=== PATIENT | female | born 1945 | race Caucasian/White ===

== ENCOUNTER 2019-07-25 11:12 | Inpatient (IN) | payer MEDICARE, SELFPAY ==
[2019-07-25] VITALS (10 sets, daily range): BP systolic 122–139; BP diastolic 72–93; PULSE 84–107; RESP 14–20; TEMP 36.4–37; O2SAT 90–94; BMI 18.6
--- NOTE | 2019-07-25 11:26 | XR_ITS ---
WS: [id number] XR hip LT 2-3V wo/w pel* [id number] REASON FOR EXAM: injury FINDINGS: There is an impacted basocervical fracture of the left hip. Slight valgus deformity is seen . The pelvis otherwise normal. XR/XR hip LT 2-3V wo/w pel* [id number] IMPRESSION: Basocervical fracture of the left hip
--- NOTE | 2019-07-25 11:30 | XR_ITS ---
WS: [id number] XR KUB portable [id number] REASON FOR EXAM: stomach problems FINDINGS: Aneurysmal changes of the mid aorta is seen. There is marked fecal stasis throughout the colon. There is a basocervical fracture of the left hip age undetermined. There is no definite obstructive changes noted. The suspected aorta measured 5.71 cm. XR/XR KUB portable [id number] IMPRESSION: Suspected abdominal aortic aneurysm There is basal cervical fracture of the left hip There is fecal stasis seen.
--- NOTE | 2019-07-25 11:30 | W.ED.FALL ---
HPI - Fall General: Chief Complaint: Fall Stated Complaint: GROUND LEVEL FALL, LT HIP PAIN Time Seen by Provider: 07/25/19 11:23 History of Present Illness: HPI Narrative: Patient arrived via ambulance with complaint of left hip pain after falling from a standing position. Patient denies any dizziness. Patient has had upset stomach last 2 days and decreased appetite. Has been using Pepto-Bismol. After using Pepto-Bismol she notes her stools were dark. complaint: fall Onset (ago): minute(s) Fall from: standing Fall witnessed: yes, by family Place fall occurred: home Loss of consciousness: None Symptoms prior to fall: none Context: tripped/slipped Location of injury: other (Left hip) Severity: moderate Severity scale (1-10): 5 Quality: dull and aching Associated symptoms-after fall: Reports no associated symptoms; Denies abdominal pain, chest pain or headache(s) Review of Systems Const: Denies: fever(s), chills or body aches Eyes: Denies: change in vision or blurry vision ENMT: Denies: throat pain or nasal congestion Card: Denies: chest pain or dyspnea on exertion Resp: Denies: dyspnea, productive cough or non-productive cough GI: Reports: other (Decreased appetite); Denies: abdominal pain, nausea or vomiting Musc: Reports: extremity pain (Left hip) Skin/Breast: Denies: rash Neuro: Denies: headache(s) Psych: Denies: anxiety or depression Perez/Lymph: Denies: easy bruising PFSH ED PFSH: Social History Smoking and tobacco status: current every day smoker Physical Exam Const: COMMON NORMALS: no acute distress, average body habitus and patient oriented x3 HENMT: COMMON NORMALS: normocephalic HEAD & SCALP: normal to inspection and normocephalic FACE & SINUS: normal facial exam Eye: COMMON NORMALS: conjunctivae normal GENERAL EYE: appearance normal, both eyes and all related structures CONJUNCTIVA: Yes conjunctivae normal Neck/C-Spine: COMMON NORMALS: no JVD Chest: COMMONS NORMALS: normal inspection of the chest Resp: COMMON NORMALS: normal respiratory effort and clear to auscultation bilaterally AUSCULTATION: clear to auscultation bilaterally Cardio: COMMON NORMALS: no JVD, regular rate and regular rhythm RATE: regular rate RHYTHM: regular rhythm GI: COMMON NORMALS: Normal to inspection, nondistended, normoactive bowel sounds present Extremity: NARRATIVE EXTREMITY EXAM: Left leg is outwardly rotated appears a little bit short has pain with palpation to the left medial aspect of the hip Neuro: COMMON NORMALS: patient oriented x3 Course Vital Signs: Vital signs: Vital Signs Temperature 98.1 F 07/25/19 11:21 Pulse Rate 107 H 07/25/19 11:21 Respiratory Rate 18 07/25/19 11:47 Blood Pressure 124/74 07/25/19 11:21 Pulse Oximetry 90 07/25/19 11:21 MDM - Fall MDM Narrative: Medical decision making narrative: Discussed patient with Dr. Davies Lab Data: Labs: Lab Results 07/25/19 07/25/19 Range/Units 11:44 11:44 WBC 16.2 H (4.0-10.0) 10^3/ uL RBC 4.29 (4.1-5.3) 10^6/u L Hgb 12.5 (11.5-15.3) g/dL Hct 36.9 L (37.0-47.0) % MCV 86.0 (81-99) fL MCH 29.1 (28.0-34.0) pg MCHC 33.9 (30.0-36.0) g/dL RDW 12.6 (12.1-15.1) % Plt Count 336 (130-400) 10^3/c mm MPV 9.6 (7.4-10.4) fL Neut % (Auto) 88.7 % Lymph % (Auto) 3.1 % Jasper % (Auto) 7.3 % Eos % (Auto) 0.1 % Baso % (Auto) 0.1 % Neut # (Auto) 14.3 H (1.8-7.7) 10^3/u L Lymph # (Auto) 0.5 L (0.8-4.8) 10^3/u L Jasper # (Auto) 1.2 H (0.2-0.9) 10^3/u L Eos # (Auto) 0.0 (0.0-0.8) 10^3/u L Baso # (Auto) 0.0 (0.0-0.1) 10^3/u L Nucleated RBC % (a uto) 0 % Nucleated RBCs # 0.0 /100WBC Sodium 124 L (136-145) mmol/L Potassium 4.0 (3.5-5.1) mmol/L Chloride 86 L (98-107) mmol/L Carbon Dioxide 23 (22-29) mmol/L Anion Gap 19.0 (5-19) BUN 16 (8-23) mg/dL Creatinine 0.4 L (0.5-0.9) mg/dL Glucose 136 H (65-115) mg/dL Calculated Osmolal ity 256 L (285-295) mOsm/k g Calcium 9.3 (8.5-10.5) mg/dL Total Bilirubin 0.3 (0.15-1.2) mg/dL AST 21 (0-32) U/L ALT 13 (0-33) U/L Alkaline Phosphata se 88 (35-105) IU/L Total Protein 6.7 (6.6-8.7) g/dL Albumin 3.7 (3.5-5.2) g/dL Globulin 3.0 (1.3-4.6) g/dL Discharge Plan Discharge Prescriptions: No Action lorazepam 0.5 mg tablet 0.5 mg PO BID PRN (Reason: anxiety) 30 Days Qty: 60 RF: 5 citalopram 20 mg Tablet 20 mg PO DAILY RF: 0 Coding Level of Care Code ED American Sign Language Teacher for Chg Fwd Exam Comprehensive
[2019-07-25] MEDS: ondansetron 2 mg/ML SDV 2 mL 4 MG IVP (11:45)
[2019-07-25] MEDS: morphine 4 mg/mL SDV 1 mL IVP (11:47)
[2019-07-25 11:56] LABS: Basophils % 0.1 %; Eosinophils % 0.1 %; Hematocrit 36.9 % (37.0-47.0); Hemoglobin 12.5 g/dL (11.5-15.3); Lymphocytes # 0.5 10^3/uL (0.8-4.8); Lymphocytes % 3.1 %; Mean Corpuscular HGB Conc 33.9 g/dL (30.0-36.0); Mean Corpuscular Hemoglobin 29.1 pg (28.0-34.0); Mean Platelet Volume 9.6 fL (7.4-10.4); Monocytes # 1.2 10^3/uL (0.2-0.9); Monocytes % 7.3 %; Neutrophils # 14.3 10^3/uL (1.8-7.7); Neutrophils % 88.7 %; Nucleated Red Blood Cells % 0 %; Platelet Count 336 10^3/cmm (130-400); Red Blood Count 4.29 10^6/uL (4.1-5.3); Red Cell Distribution Width 12.6 % (12.1-15.1); White Blood Count 16.2 10^3/uL (4.0-10.0)
[2019-07-25 12:09] LABS: Alanine Aminotransferase 13 U/L (0-33); Albumin Level 3.7 g/dL (3.5-5.2); Alkaline Phosphatase 88 IU/L (35-105); Aspartate Amino Transferase 21 U/L (0-32); Blood Urea Nitrogen 16 mg/dL (8-23); Calcium 9.3 mg/dL (8.5-10.5); Carbon Dioxide 23 mmol/L (22-29); Chloride 86 mmol/L (98-107); Glucose 136 mg/dL (65-115); Osmolality Calculated 256 mOsm/kg (285-295); Sodium 124 mmol/L (136-145); Total Bilirubin 0.3 mg/dL (0.15-1.2); Total Protein 6.7 g/dL (6.6-8.7)
--- NOTE | 2019-07-25 12:15 | ECG_ITS ---
[facility] ED Test Date: 2019-07-25 Pat Name: Alexander Mckenzie Department: Room: 268 Gender: Female Therapy Aide: : 1945 Requested By: Asif Rodrigez Order Number: [id number] Rolando MD: Roxana Franco M.D. Measurements Intervals [place] Rate: 96 P: 85 CT: 141 QRS: 74 QRSD: 85 T: 68 QT: 359 QTc: 454 Interpretive Statements SINUS RHYTHM WITH OCCASIONAL SUPRAVENTRICULAR PREMATURE COMPLEXES POSSIBLE RIGHT VENTRICULAR CONDUCTION DELAY [RSR (QR) IN V1/V2] MINIMAL ST DEPRESSION [0.025+ mV ST DEPRESSION] No previous ECG available for comparison Electronically Signed On 07-25-2019 19:20:59 CDT by Roxana Franco M.D. [id number]
--- NOTE | 2019-07-25 12:15 | XR_ITS ---
WS: [id number] XR chest 1V portable [id number] REASON FOR EXAM: fractured hip FINDINGS: Left pleural effusion is noted. There appears to be decreased volume of the left lung as co mpared to earlier exam of July 09, 2010. There is arteriosclerotic changes seen in the arch the aorta. The right lung suggest chronic obstructive pulmonary disease and is hyper aerated. 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 XR/XR chest 1V portable [id number] IMPRESSION: Atelectasis of the left lung with left pleural effusion Hyper aerated right lung.
[2019-07-25 12:31] LABS: INR 0.96 (0.8-1.2)
[2019-07-25] MEDS: sodium chloride 0.9% 1,000 ML 999 ML IV (12:43)
--- NOTE | 2019-07-25 12:44 | CT_ITS ---
WS: [id number] CT abdomen pelvis w con* [id number] REASON FOR EXAM: abd pain IV CONTRAST ADMINISTERED: Isovue 300, 95 mL TOTAL EXAM DLP: 468.[address] scans at [facility] use at least one of these dose optimization techniques: automat ed exposure control; mA and/or kV adjustment per patient size (includes targeted exams where dose is matched to clinical indication); or iterative reconstruction. FINDINGS: Elevated stomach into the left thoracic cavity with fluid in the stomach and debris. On the chest film this appears to be decreased volume of the left lung. Atelectasis is suspected in the lef t lung base. The liver was normal. The gallbladder showed no stones. The aorta shows heavy arteriosclerotic changes. A prominent aneurysm is seen of the aorta no definite dissection is seen at this time. There is heavy fecal stasis throughout the colon. The pancreas was normal. The kidneys show small cysts. A prominent cyst is seen on the right is 3.57 cm. The ureters appear to be normal. There is diverticulosis throughout the lower sigmoid and descending colon. There is a Bynum catheter in the evidence of the bladder. There is a basocervical fracture of the left hip. The aneurysm extends down the aorta 5 cm. And is in frarenal. CT/CT abdomen pelvis w con* [id number] IMPRESSION: Abdominal aortic aneurysm with no definite dissection seen measures 4.67 cm and extends 5 cm down the aorta. Fecal stasis throughout the colon Prominent left renal cyst Diverticulosis of the lower sigmoid descending colon The basal cervical fracture of left hip
--- NOTE | 2019-07-25 13:06 | P.HP_ITS ---
Providers/Chief Complaint Admitting Physician: Sirisha Vargas MD Primary Care Provider: Florentin Amaro MD Chief Complaint: GROUND LEVEL FALL, LT HIP PAIN History of Present Illness Alexander Mckenzie is a 74 year old female with PMHx of Chronic smoking, Anxiety/depression, COPD, presents from home by ambulance for evaluation of left hip pain following a fall earlier this morning while she was in her living room attempting to turn off the ceiling fan. When she reached up to the switch she stumbled backwards and ended up landing on her left hip. She was able to scoot on her bottom to the edge of the couch then braced herself up to a sitting position but was unable to weight-bear on her left lower extremity. She had significant pain in the left hip following the fall. Her is present at the bedside in the ER during my assessment. Her left lower extremity appears shortened, externally rotated and abducted. He received 2 mg of morphine in route to the hospital and has received an additional 4 mg of morphine for pain control. She seems relatively comfortable during my assessment and is able to provide her own history. She has not been admitted at our facility previously so no collateral information from review of medical record. Imaging so far shows a left hip fracture. Labs indicate leukocytosis with a white count of 16.2, normal hemoglobin at 12.5, normal renal function, hyponatremia with a sodium of 124, low chloride at 86, blood sugar of 136, normal LFTs, INR of 0.96. Chest x-ray shows hyperinflation, left pleural effusion and emphysema. KUB was done showing constipation and suspected AAA for which she is going to get a CT of the abdomen and pelvis. She relates that over the past several days her appetite has been very poor and she has mostly been drinking boost. She had had some nausea, vomiting and diarrhea about 4 days ago for which she was taking Pepto-Bismol. Shortly thereafter her symptoms resolved but she noticed dark stool. Last bowel movement was yesterday. She denies any changes in her urination, fever/chills, cough, shortness of breath, chest pain, lightheadedness or dizziness, previous falls. Had been ambulating independently without difficulty. She is not oxygen dependent at baseline. She only takes citalopram and Ativan as needed in terms of her home medications. She is pending Bynum catheter placement and is yet to receive her first bolus of IV fluid. She has been admitted for surgical management of her left hip fracture. Dr. Ventura has been contacted by the ER physician. CODE STATUS discussed with patient and at bedside, full code. Review of Systems Const: Reports: change in appetite (decreased appetite), change in weight (weight loss) and fatigue; Denies: fever(s) or chills Eyes: Denies: change in vision ENMT: Reports: dry mouth; Denies: odynophagia Card: Denies: chest pain, edema, swelling of feet/ankles, lightheadedness, syncope, pre-syncope, dyspnea on exertion or orthopnea Resp: Denies: dyspnea, productive cough or non-productive cough GI: Reports: abdominal pain, nausea and other (-dark colored stool); Denies: vomiting, hematemesis, diarrhea, bloating, GI cramping or hematochezia : Denies: difficulty voiding, dysuria or urinary frequency Musc: Reports: joint pain (left hip pain); Denies: back pain Skin/Breast: Denies: rash Neuro: Denies: numbness in extremities, weakness in extremities or confusion Psych: Denies: anxiety Medications/Allergies Home Medications Medication Instructions Recorded Confirmed Last Taken Type lorazepam 0.5 mg tablet 0.5 mg PO BID PRN 30 Days #60 tab 04/27/19 07/25/19 07/25/19 Rx citalopram 20 mg PO DAILY 07/25/19 07/25/19 07/25/19 History Allergies Allergy/AdvReac Type Severity Reaction Status Date / Time acetaminophen [From Vicodin] Allergy swelling Verified 07/25/19 11:25 hydrocodone [From Vicodin] Allergy swelling Verified 07/25/19 11:25 ibuprofen Allergy swelling Verified 07/25/19 11:25 PFSH Acute PFSH: Medical History Anxiety COPD (chronic obstructive pulmonary disease) Depression Smoker Surgical History History of bladder suspension procedure History of hysterectomy -secondary to pre-malignant lesions Family History (Updated 07/25/19 @ 13:16 by Sirisha Vargas MD) Father Congestive heart failure Mother Dementia Sister Brain aneurysm ruptured Social History (Updated 07/25/19 @ 13:17 by Sirisha Vargas MD) Smoking and tobacco status: current every day smoker cigarettes Packs smoked per day: 0.5 Alcohol intake: current Alcohol intake frequency: holidays/special occasions only Alcohol type: beer Substance/Drug Use: never Household members: significant other Housing: House Marital status: Current occupational status: retired Vitals/I&O/Wt Last Vital Signs Temp 98.1 F 07/25/19 11:21 Pulse 107 H 07/25/19 11:21 Resp 18 07/25/19 11:47 BP 124/74 07/25/19 11:21 Pulse Ox 90 07/25/19 11:21 Weight last 48 hrs Weight 52.163 kg Physical Exam Const: COMMON NORMALS: no acute distress, patient oriented x3 and alert GENERAL APPEARANCE: cooperative, comfortable, frail appearing and appears older than stated age NUTRITIONAL APPEARANCE: thin ORIENTATION/CONSCIOUSNESS: Yes awake HENMT: COMMON NORMALS: normocephalic, atraumatic and hearing grossly normal bilaterally HEAD & SCALP: normocephalic and atraumatic MOUTH: moist mucous membranes abnormal Details: parched Eye: COMMON NORMALS: Equal, round and reactive pupils present, EOMs intact bilaterally and conjunctivae normal CONJUNCTIVA: Yes conjunctivae normal PUPIL: Yes Equal, round and reactive pupils present Neck/C-Spine: COMMON NORMALS: full ROM GENERAL: Yes normal visual inspection and Yes trachea midline Chest: CHEST: Yes Symmetrical chest wall rise Resp: COMMON NORMALS: normal respiratory effort, No retractions, No use of accessory muscles and clear to auscultation bilaterally EFFORT & INSPECTION: Yes able to speak in complete sentences, Yes symmetric chest movement and No tachypneic AUSCULTATION: clear to auscultation bilaterally OTHER: -on 2 L NC Cardio: COMMON NORMALS: regular rate, regular rhythm, S1 normal heart sound present, S2 normal heart sound present and No murmurs present (Cardio) RATE: tachycardic RHYTHM: regular rhythm HEART SOUNDS: S1 normal heart sound present and S2 normal heart sound present GI: COMMON NORMALS: Normal to inspection, nondistended, normoactive bowel sounds present, Soft to palpation and non-tender PALPATION: Yes Soft to palpation Extremity: COMMON NORMALS: no clubbing, cyanosis or edema and no pedal edema NARRATIVE EXTREMITY EXAM: -LLE: externally rotated, abducted, shortened; tender ness to palpation at hip joint Neuro: COMMON NORMALS: patient oriented x3, moves all extremities, no focal motor deficits and no sensory deficits noted Psych: COMMON NORMALS: mental status grossly normal, Normal thought process present, cooperative, normal affect and speech normal SPEECH: Yes normal speech THOUGHT PROCESS: Normal thought process present Skin: COMMON NORMALS: no rashes or lesions noted, no jaundice, no petechiae and no mottling GENERAL SKIN EXAM: no rashes or lesions noted Data : 07/25/19 11:44 07/25/19 11:44 A&P Assessment and plan (1) Hip fracture, left: -secondary to mechanical fall at home earlier this AM -imaging reviewed -has received 4 mg dose of IV morphine; continue pain control as needed -fall precautions, strict bed rest -placement of Bynum catheter, assess daily for removal, monitor Is & Os -Ortho consult by Dr. Ventura -noted leukocytosis, low clinical suspicion for infection, pending UA, CXR with noted hyperinflation, atelectasis, L pleural effusion -monitor vital signs -IVF hydration -NPO after midnight -supplemental oxygen as needed, monitor respiratory status -noted suspicion for AAA on abdominal imaging, pending CT -coags wnl, not on any AC or antiplatelet therapy -lake-op abx -PT/OT evaluations post-op Status: Acute Qualifiers: Encounter type: initial encounter Fracture type: closed Qualified Code(s): S72.002A - Fracture of unspecified part of neck of left femur, initial encounter for closed fracture (2) Hyponatremia: -poor oral intake recently so likely due to dehydration -bolus of 1 L NS to be given in ED; IVF maintanance thereafter -close monitoring of Na levels to avoid over-correction, corrected Na is 125 -check TSH Status: Acute (3) Protein calorie malnutrition: -BMI-19 kg/m2 -poor appetite; add Ensure to meals Status: Chronic Qualifiers: Protein-calorie malnutrition severity: moderate Qualified Code(s): E44.0 - Moderate protein-calorie malnutrition (4) Depression: -hold citalopram due to hyponatremia Status: Chronic Qualifiers: Depression Type: major depressive disorder Major depression recurrence: unspecified whether recurrent Active/Remission status: remission status unspecified Qualified Code(s): F32.9 - Major depressive disorder, single episode, unspecified (5) Anxiety: -anxiolytics PRN Status: Chronic (6) Smoker: -1/2 PPD -nicotine replacement therapy Status: Chronic (7) COPD (chronic obstructive pulmonary disease): -no acute exacerbation currently -supplemental oxygen as needed, monitor respiratory status Status: Chronic Qualifiers: COPD type: emphysema Emphysema type: unspecified Qualified Code(s): J43.9 - Emphysema, unspecified Additional A&P Information -GI ppx with PPI -DVT ppx with SCDs, hold AC for surgery -Dispo: pending surgical intervention -Code status: FULL code; discussed with patient and at bedside Attestations Medical Necessity Statement*: Alexander Mckenzie's hospital stay will require greater than 2 midnights for management of left hip fracture requiring surgical intervention and appropriate post-op care. Time Spent in Patient Care: Greater than 35 minutes (>than 50% of time spent in counselling and/or direct pt care on unit) . Coding Level of Care Code Acute Sales Operations for Chg Fwd Diagnoses Hip fracture, left S72.002A Encounter type: initial encounter Fracture type: closed Hyponatremia E87.1 Protein calorie malnutrition E44.0 Protein-calorie malnutrition severity: moderate Depression F32.9 Depression Type: major depressive disorder Major depression recurrence: unspecified whether recurrent Active/Remission status: remission status unspecified Anxiety F41.9 Smoker F17.200 COPD (chronic obstructive pulmonary disease) J43.9 COPD type: emphysema Emphysema type: unspecified
[2019-07-25] MEDS: iohexol 300 mg/mL 100 mL Btl IV (13:57)
[2019-07-25] MEDS: sodium chloride 0.9% 1,000 ML 125 ML IV ×2 (14:55→22:16)
[2019-07-25 15:04] LABS: 25 Hydroxy Vitamin D 14 ng/mL (30-100)
[2019-07-25] MEDS: sennosides-docusate Tablet 1 TAB PO (17:08)
[2019-07-25] MEDS: LORazepam 0.5 mg Tablet PO (17:09)
[2019-07-25] MEDS: morphine 4 mg/mL SDV 1 mL 2 MG IVP ×2 (17:16→22:20)
--- NOTE | 2019-07-25 18:28 | NUR.SHIFT ---
SHIFT SUMMARY PATIENT HAS BEEN RESTING SINCE ARRIVAL TO FLOOR. SHE HAD AN ENSURE FOR SUPPER. 300ML OF URINE OUTPUT. PAIN CONTROLLED WELL WITH MORPHINE. PATIENT REQUESTED HER LORAZEPAM THIS EVENING AND WOULD LIKE TO HAVE IT IN THE MORNING WELL. PATIENT'S O2 WAS IN THE 80'S IN THE ER. THE ER NURSE PLACED PATIENT ON 2LNC. UPON ARRIVAL TO THE FLOOR, PATIENT'S O2 WAS 89-90%. THIS NURSE PLACED PATIENT ON 3LNC AND CONTINUED TO MONITOR. PATIENT'S O2 WAS THEN 97%. PATIENT TITRATED BACK TO 2LNC AND TOLERATING WELL. NO COMPLAINTS AT THIS TIME.
--- NOTE | 2019-07-25 19:58 | PC.NURSE ---
Skid Adzer turned patient at 1950 to get off of her left hip. Skid Adzer told patient that if it hurt we would take it out from under her.
--- NOTE | 2019-07-25 20:04 | P.CONIM_ITS ---
Providers/Reason For Consult Consulting Physican/Specialty*: Mariya Ventura MD - Orthopedics Reason for Consult*: Left subcapital hip fracture Requesting Physcian: Dr. Davies Attending Physician: Sirisha Vargas MD Primary Care Provider: Florentin Amaro MD History of Present Illness History of Present Illness Alexander Mckenzie is a 74 year old female who was in her usual state of health when she fell this morning in her living room. Reportedly, she was attempting to turn off the ceiling fan. When she reached up to turn off a van, she stumbled backwards and landed directly on her left hip. She scooted to the couch and braced herself into a sitting position but she was unable to weight- bear on the left lower extremity. Her called the ambulance and she was brought to the hospital. Her left lower extremity was shortened and externally rotated at the time of evaluation. There is no issue causing her to fall that is apparent. She does not did not have any dizziness or shortness of breath. She does state that over the past several days her appetite is been poor and she has been drinking boost. She did have some nausea, vomiting, and diarrhea for which she took Pepto-Bismol. Review of Systems Const: Reports: change in appetite (Decreased) and change in weight (Decreased); Denies: fever(s) or chills Eyes: Denies: change in vision ENMT: Reports: dry mouth Card: Denies: chest pain, edema or dyspnea on exertion Resp: Denies: dyspnea or productive cough GI: Reports: abdominal pain, nausea, diarrhea and change in stool character (Dark stools); Denies: vomiting : Denies: difficulty voiding or dysuria Musc: Reports: extremity pain (Left hip) Skin/Breast: Denies: erythema or changes in skin color Neuro: Denies: numbness in extremities Psych: Denies: anxiety or depression Perez/Lymph: Denies: easy bruising or easy bleeding Meds/Allergies Home Medications and Allergies Home Medications Medication Instructions Recorded Confirmed Last Taken Type lorazepam 0.5 mg tablet 0.5 mg PO BID PRN 30 Days #60 tab 04/27/19 07/25/19 07/25/19 Rx citalopram 20 mg PO DAILY 06/17/20 06/17/20 06/17/20 History Allergies Allergy/AdvReac Type Severity Reaction Status Date / Time acetaminophen [From Vicodin] Allergy swelling Verified 07/25/19 11:25 hydrocodone [From Vicodin] Allergy swelling Verified 07/25/19 11:25 ibuprofen Allergy swelling Verified 07/25/19 11:25 Current Medications Current Medications Generic Name Dose Route Start Last Admin Trade Name Freq PRN Reason Stop Dose Admin Sodium Chloride 1,000 mls @ 125 mls/hr 07/25/19 14:22 07/25/19 14:55 Sodium Chloride 0.9% IV 125 mls/hr .Q8H CECY Administration Lorazepam 0.5 mg 07/25/19 14:22 07/25/19 17:09 Ativan PO 0.5 mg BID PRN Administration anxiety Morphine Sulfate 2 mg 07/25/19 14:22 07/25/19 17:16 Morphine IVP 2 mg Q4H PRN Administration SEVERE PAIN Senna/Docusate Sodium 1 tab 07/25/19 18:00 07/25/19 17:08 Senna-S PO 1 tab BID CECY Administration PFSH Acute PFSH: Medical History Anxiety COPD (chronic obstructive pulmonary disease) Depression Smoker Surgical History History of bladder suspension procedure History of hysterectomy -secondary to pre-malignant lesions Family History Father Congestive heart failure Mother Dementia Sister Brain aneurysm ruptured Social History Smoking and tobacco status: current every day smoker cigarettes Packs smoked per day: 0.5 Alcohol intake: current Alcohol intake frequency: holidays/special occasions only Alcohol type: beer Substance/Drug Use: never Household members: significant other Housing: House Marital status: Current occupational status: retired Vitals/I&O/Wt Last Vital Signs Temp 98.4 F 07/25/19 19:22 Pulse 90 07/25/19 19:22 Resp 17 07/25/19 19:22 BP 132/93 07/25/19 19:22 Pulse Ox 93 07/25/19 19:22 07/25/19 07/25/19 07/25/19 06:59 14:59 22:59 Output Total 300 / 300 Balance -300 / -300 Weight last 48 hrs Weight 115 lb Physical Exam Const: COMMON NORMALS: no acute distress, patient oriented x3 and alert GENERAL APPEARANCE: cooperative, comfortable and frail appearing NUTRITIONAL APPEARANCE: thin ORIENTATION/CONSCIOUSNESS: Yes awake HENMT: COMMON NORMALS: normocephalic and atraumatic HEAD & SCALP: normocephalic and atraumatic Eye: GENERAL EYE: appearance normal, both eyes and all related structures Chest: COMMONS NORMALS: normal inspection of the chest Resp: COMMON NORMALS: normal respiratory effort EFFORT & INSPECTION: Yes able to speak in complete sentences and Yes symmetric chest movement Extremity: GENERAL: Yes normal exam except as noted LEFT LOWER EXTREMITY: Yes hip joint (The leg is shortened and externally rotated. There is tenderness with any range of motion.) Left hip: Yes inspection (The skin is intact.), Yes palpation (There is tenderness to palpation about the left hip.), Yes ROM (Painful.) and Yes neurovascular exam (Intact) Neuro: COMMON NORMALS: patient oriented x3 SENSORIUM/ORIENTATION: Yes alert Psych: COMMON NORMALS: mental status grossly normal APPEARANCE: Yes grossly normal ATTITUDE: Yes calm and Yes engaged ATTENTION/CONCENTRATION: Yes attention grossly intact Skin: COMMON NORMALS: no rashes or lesions noted GENERAL SKIN EXAM: no rashes or lesions noted Urinary Catheter Management^: Bynum: Cath Placed During This Visit: yes Reason for Continuing Indwelling Catheter: Required Immobilization for Trauma or Surgery or Anesthesia Urinary Catheter Date of Insertion: 07/25/19 Urinary Catheter Time of Insertion: 13:20 Data Imaging^: Xray Ortho: I personally reviewed and interpreted this imaging study as follows: My impression: The patient has a displaced subcapital left hip fracture. A&P Assessment and plan (1) Subcapital fracture of left hip: X-rays are evaluated and the patient has a displaced subcapital left hip fracture. She was admitted to the hospital under the hospitalist service for optimization. She has a low sodium, and therefore, the patient is not optimized for surgery. After discussion with the hospitalist team, they would like me to wait at least 36-48 hours to give them time to optimize her labs. We have discussed the possibility of going to surgery on 07/26 provided her labs correct by that time. Status: Acute Qualifiers: Encounter type: initial encounter Fracture type: closed Qualified Code(s): S72.012A - Unspecified intracapsular fracture of left femur, initial encounter for closed fracture Consult Attestations Medical Necessity Statement: Per hospitalist service Coding Level of Care Code Acute [facility]or for [facility] Fwd Exam Comprehensive Diagnoses Subcapital fracture of left hip S72.012A Encounter type: initial encounter Fracture type: closed
[2019-07-26] VITALS (26 sets, daily range): BP systolic 82–138; BP diastolic 51–104; PULSE 78–103; RESP 14–24; TEMP 36.4–37.7; O2SAT 86–99
[2019-07-26] MEDS: morphine 4 mg/mL SDV 1 mL 2 MG IVP ×2 (02:27→06:29)
--- NOTE | 2019-07-26 04:48 | PC.NURSE ---
pt refusing bucks traction at this time.
[2019-07-26 05:59] LABS: Basophils % 0.2 %; Hematocrit 35.1 % (37.0-47.0); Hemoglobin 11.6 g/dL (11.5-15.3); Lymphocytes # 0.7 10^3/uL (0.8-4.8); Lymphocytes % 6.5 %; Mean Corpuscular Hemoglobin 29.4 pg (28.0-34.0); Mean Corpuscular Volume 89.1 fL (81-99); Mean Platelet Volume 9.8 fL (7.4-10.4); Monocytes # 1.3 10^3/uL (0.2-0.9); Monocytes % 11.9 %; Neutrophils # 8.8 10^3/uL (1.8-7.7); Neutrophils % 80.8 %; Nucleated Red Blood Cells % 0 %; Platelet Count 256 10^3/cmm (130-400); Red Blood Count 3.94 10^6/uL (4.1-5.3); Red Cell Distribution Width 12.5 % (12.1-15.1); White Blood Count 10.9 10^3/uL (4.0-10.0)
[2019-07-26 06:10] LABS: Anion Gap 11.9 (5-19); Blood Urea Nitrogen 6 mg/dL (8-23); Calcium 8.6 mg/dL (8.5-10.5); Carbon Dioxide 26 mmol/L (22-29); Chloride 95 mmol/L (98-107); Glucose 116 mg/dL (65-115); Magnesium 1.8 mg/dL (1.7-2.3); Osmolality Calculated 265 mOsm/kg (285-295); Potassium 3.9 mmol/L (3.5-5.1); Sodium 129 mmol/L (136-145)
[2019-07-26 06:16] LABS: Chol HDL Ratio 1.84 mg/dL (0.0-4.40); Cholesterol 94 mg/dL (0-200); HDL Cholesterol 51 mg/dL (60-100); LDL Cholesterol Calculated 31 mg/dL (50-129); LDL HDL Ratio 0.61 RATIO (0.00-3.22); Thyroid Stimulating Hormone 3.09 uIU/mL (0.27-4.20); Triglycerides 61 mg/dL (0-150)
[2019-07-26 06:18] LABS: Estmated Average Glucose 105; Hemoglobin A1C 5.3 % (4.0-6.0)
[2019-07-26] MEDS: sodium chloride 0.9% 1,000 ML 125 ML IV ×2 (06:29→17:08)
[2019-07-26] MEDS: oxyCODONE-APAP 5-325 mg Tablet 1 TAB PO ×3 (08:34→22:56)
[2019-07-26] MEDS: ondansetron 2 mg/ML SDV 2 mL 4 MG IVP (08:34)
[2019-07-26] MEDS: nicotine 7 mg Patch 1 PATCH TRANSDERMA (08:34)
[2019-07-26] MEDS: sennosides-docusate Tablet 1 TAB PO ×2 (08:35→17:05)
--- NOTE | 2019-07-26 09:52 | P.OP_ITS ---
Operative Report Date of procedure: July 26, 2019 Pre-op Diagnosis: Left subcapital hip fracture Post-op diagnosis: same Post-op Findings: Displaced left subcapital hip fracture Procedure Done: Left bipolar hip arthroplasty utilizing the Juju Accolade II hip system: Utilizing an Accolade two 127 degree neck angle hip stem size 5 with a 46 mm outer diameter by 28 mm inner diameter universal head bipolar component and with a femoral head 28 mm outer diameter with a -4 mm offset Specimens removed/disposition: Femoral head, disposed of Pathology: none sent Surgeon: Mariya Ventura Short Piece Handler: Sarah Cherry Anesthesia: General (Intubated ASA 3) Estimated blood loss (mL): 50 IV fluids (mL): 800 Urine output (mL): 600 Complications: None Findings: Displaced left subcapital hip fracture. Following the procedure, the hip was stable at 90 degrees of flexion with 90 degrees of internal rotation and 30 degrees of adduction. It was also stable to toe hang and to external rotation. Condition: stable Disposition: PACU (Then return to floor for postoperative rehabilitation and pain management) Brief History: Alexander Mckenzie is a 74 year old female who was in her usual state of health when she fell in her living room. Reportedly, she was attempting to turn off the ceiling fan. When she reached up to turn off a van, she stumbled backwards and landed directly on her left hip. She scooted to the couch and braced herself into a sitting position but she was unable to weight-bear on the left lower extremity. Imaging in the emergency department demonstrated a displaced subcapital hip fracture. Procedure: The patient was brought to the operating theater, and after undergoing adequate general anesthesia was transferred to the operating room table. The patient was placed in the full lateral position and held in place with the pegboard. Patient's left lower extremity was draped free and was subsequently prepped and further draped free. A surgical pause was performed prior to commencement of the surgical procedure. During the surgical pause, we confirmed the site and side of surgery as well as availability of equipment. Additionally, we confirmed preoperative surgical markings. X-rays are also reviewed during this time. Confirmation was made of preoperative antibiotic, Ancef 2 g, as well as TXA preoperatively Following the surgical pause, an incision was made centering over the greater trochanter continuing proximally and distally as necessary to allow access to the hip joint. Dissection continues to skin and soft tissue using scalpel. Incision was obtained using electrocautery. Tensor fascia nitin was identified and incised longitudinally. Sciatic nerve was identified and protected throughout the surgical procedure. A Charnley U retractor was placed with care being taken to protect the sciatic nerve during placement. The hip was internally rotated. Piriformis muscle was then identified, tagged, and subsequently incised from the posterior aspect of the hip joint. The remaining short external rotators were also incised. These were then elevated off the capsule and the capsule was entered in a T-type fashion. Each side of the capsule was then tagged. The proximal femur was brought into an appropriate position of the femoral neck osteotomy was accomplished. This was in appropriate position for placement of the prosthetic component. Femoral head was then removed from the acetabulum utilizing a corkscrew. It was subsequently measured. The appropriate size femoral head trial was chosen. This was a size 46 mm. A 47 mm femoral head was also trialed but seemed to large. Therefore size 46 mm was the chosen size for final implantation. Femoral liner machine operator was then placed and attention was directed to the proximal femur. Initially, the proximal femur was addressed with a box chisel, and this was followed by a canal finder and subsequently broaches. The hip was broached to a size 5 x 127 degree hip stem. Size 5 broach was noted to fit nicely and have good fit and fill. Therefore this was to be the chosen component. Trial reduction was accomplished with a 46 mm universal head bipolar component and a -4 mm offset femoral head. With this, the above-noted stabilities were accomplished. This was felt to be appropriate and therefore trial components were removed and the hip was irrigated. Acetabulum was evaluated for any loose bodies or other soft tissues requiring resection. We then prepared for implantation. The size 5 x 127 degree Accolade II femoral stem was impacted into position. This was placed without difficulty. Onto this was placed the construct of the 46 mm outer diameter universal bipolar component with a 28 mm inner diameter, and the 28 mm diameter -4 mm neck length femoral head. This was placed onto the trunnion of the femoral component. It was impacted into position and pulled upon to assure that there was no dissociation. Once again the hip was irrigated and suctioned dry and was reduced. We then irrigated the hip further with 20 mL of Betadine mixed into 500 mL of normal saline. This was allowed to remain in the wound for approximately 3 minutes. It was then suctioned dry and irrigated with normal saline. This was suctioned dry again and closure was accomplished with 0 Vicryl in the capsular tissues followed by reattachment of the piriformis with 0 Vicryl. Additionally, the tensor was closed with 0 Vicryl in an interrupted fashion. Subcutaneous tissues were closed with 2-0 Monocryl. Skin was closed with 3-0 Monocryl. This was followed by Exofin, Steri-Strips followed by a Tegaderm. The patient was returned the Recovery Room in satisfactory condition. There were no complications. The patient will be discharged to the floor for postoperative rehabilitation and pain management. Associated Problem List Diagnoses (1) Subcapital fracture of left hip: Qualifiers: Encounter type: initial encounter Fracture type: closed Qualified Code(s): S72.012A - Unspecified intracapsular fracture of left femur, initial encounter for closed fracture
--- NOTE | 2019-07-26 10:05 | P.ANESASSM_ITS ---
Pre-Anesthetic Assessment Pre-Anesthetic Assessment: Height/Weight: Height 1.68 m Weight 53.24 kg Temp Pulse Resp BP Pulse Ox 98.0 F 99 18 129/75 93 07/26/19 07:32 07/26/19 07:32 07/26/19 08:34 07/26/19 07:32 07/26/19 07:32 Preop Diagnosis: Hip fracture Proposed Procedure: Operation Date: 07/26/19 13:30 Proposed Procedures p Left Bipolar Hip Arthroplasty(Left) - Mariya Ventura MD Familial anesthetic complications: None Was Beta Norma taken within 24 hours: N/A Last intake: NPO > 8 hrs, Patient states she put a piece of ham in her mouth from a sandwich at 0925, but nurse told her to stop and she spit the ham back into a tissue. Denies swallowing any food/solids for > 8 hrs. Social: Social History: Tobacco and No alcohol Exam: Pre-Anes Outpt Exam: alert, oriented x 3, clear to auscultation bilaterally and regular rate & rhythm Airway: Cervical ROM: WNL MP: 2 Dentition: False Pulmonary: Pulmonary: COPD CV/HEM: CV/HEM: None reported Metabolic: Comments: hyponatremia improving with IVF Neuropsych: Neuropsych: None reported Anesthetic Plan: ASA status: 3 Anesthesia: General Risk of > 500 ml blood loss (7ml/kg in children): No Meds/Allergies Current Medications: Current Medications Generic Name Dose Route Start Last Admin Trade Name Freq PRN Reason Stop Dose Admin Sodium Chloride 1,000 mls @ 125 m ls/hr 07/25/19 14:22 07/26/19 06:29 Sodium Chloride 0.9% IV 125 mls/hr .Q8H CECY Administration Lorazepam 0.5 mg 07/25/19 14:22 07/25/19 17:09 Ativan PO 0.5 mg BID PRN Administration anxiety Morphine Sulfate 2 mg 07/25/19 14:22 07/26/19 06:29 Morphine IVP 2 mg Q4H PRN Administration SEVERE PAIN Nicotine 1 patch 07/26/19 09:00 07/26/19 08:34 Nicoderm 7 Mg Pa tch TRANSDERMA 1 patch DAILY CECY Administration Ondansetron HCl 4 mg 07/25/19 14:22 07/26/19 08:34 Zofran IVP 4 mg Q6H PRN Administration vomiting, or N/V if npo Oxycodone/Acetamin ophen 1 tab 07/25/19 14:22 07/26/19 08:34 Percocet 5-325 M g PO 1 tab Q4H PRN Administration moderate to sever e pain Senna/Docusate Sod ium 1 tab 07/25/19 18:00 07/26/19 08:35 Senna-S PO 1 tab BID CECY Administration PFSH Anesthesia PFSH: Medical History Anxiety COPD (chronic obstructive pulmonary disease) Depression Smoker Surgical History History of bladder suspension procedure History of hysterectomy -secondary to pre-malignant lesions Family History Father Congestive heart failure Mother Dementia Sister Brain aneurysm ruptured Social History Smoking and tobacco status: current every day smoker cigarettes Packs smoked per day: 0.5 Alcohol intake: current Alcohol intake frequency: holidays/special occasions only Alcohol type: beer Substance/Drug Use: never Household members: significant other Housing: House Marital status: Current occupational status: retired Data Anesthesia CBC & Chem 7: 07/26/19 05:30 07/26/19 05:30 Other Labs: Laboratory Results - last 48 hr 07/25/19 07/25/19 07/25/19 11:44 11:44 11:44 WBC 16.2 H RBC 4.29 Hgb 12.5 Hct 36.9 L MCV 86.0 MCH 29.1 MCHC 33.9 RDW 12.6 Plt Count 336 MPV 9.6 Neut % (Auto) 88.7 Lymph % (Auto) 3.1 [place] % (Auto) 7.3 Eos % (Auto) 0.1 Baso % (Auto) 0.1 Neut # (Auto) 14.3 H Lymph # (Auto) 0.5 L [place] # (Auto) 1.2 H Eos # (Auto) 0.0 Baso # (Auto) 0.0 Nucleated RBC % (auto) 0 Nucleated RBCs # 0.0 PT 13.10 INR 0.96 Sodium 124 L Potassium 4.0 Chloride 86 L Carbon Dioxide 23 Anion Gap 19.0 BUN 16 Creatinine 0.4 L Glucose 136 H Estimat Average Glucose Hemoglobin A1c Calculated Osmolality 256 L Calcium 9.3 Magnesium Total Bilirubin 0.3 AST 21 ALT 13 Alkaline Phosphatase 88 Total Protein 6.7 Albumin 3.7 Globulin 3.0 Triglycerides Cholesterol LDL Cholesterol, Calc HDL Cholesterol LDL/HDL Ratio Cholesterol/HDL Ratio 25-OH Vitamin D Total TSH 07/25/19 07/26/19 07/26/19 11:44 05:30 05:30 WBC 10.9 H RBC 3.94 L Hgb 11.6 Hct 35.1 L MCV 89.1 MCH 29.4 MCHC 33.0 RDW 12.5 Plt Count 256 MPV 9.8 Neut % (Auto) 80.8 Lymph % (Auto) 6.5 [place] % (Auto) 11.9 Eos % (Auto) 0.0 Baso % (Auto) 0.2 Neut # (Auto) 8.8 H Lymph # (Auto) 0.7 L [place] # (Auto) 1.3 H Eos # (Auto) 0.0 Baso # (Auto) 0.0 Nucleated RBC % (auto) 0 Nucleated RBCs # 0.0 PT INR Sodium 129 L Potassium 3.9 Chloride 95 L Carbon Dioxide 26 Anion Gap 11.9 BUN 6 L Creatinine 0.4 L Glucose 116 H Estimat Average Glucose Hemoglobin A1c Calculated Osmolality 265 L Calcium 8.6 Magnesium 1.8 Total Bilirubin AST ALT Alkaline Phosphatase Total Protein Albumin Globulin Triglycerides Cholesterol LDL Cholesterol, Calc HDL Cholesterol LDL/HDL Ratio Cholesterol/HDL Ratio 25-OH Vitamin D Total 14 L TSH 07/26/19 07/26/19 05:30 05:30 WBC RBC Hgb Hct MCV MCH MCHC RDW Plt Count MPV Neut % (Auto) Lymph % (Auto) [place] % (Auto) Eos % (Auto) Baso % (Auto) Neut # (Auto) Lymph # (Auto) [place] # (Auto) Eos # (Auto) Baso # (Auto) Nucleated RBC % (auto) Nucleated RBCs # PT INR Sodium Potassium Chloride Carbon Dioxide Anion Gap BUN Creatinine Glucose Estimat Average Glucose 105 Hemoglobin A1c 5.3 Calculated Osmolality Calcium Magnesium Total Bilirubin AST ALT Alkaline Phosphatase Total Protein Albumin Globulin Triglycerides 61 Cholesterol 94 LDL Cholesterol, Calc 31 L HDL Cholesterol 51 L LDL/HDL Ratio 0.61 Cholesterol/HDL Ratio 1.84 25-OH Vitamin D Total TSH 3.09 Cardiac Studies: No Data to Display
[2019-07-26] MEDS: ipratropium 0.5 mg/2.5 mL Neb INHALATION (13:24)
[2019-07-26] MEDS: sodium chloride 0.9% 1,000 ML 30 ML IV (13:37)
--- NOTE | 2019-07-26 15:16 | P.PN_ITS ---
Subjective Subjective: Interval history: Was kept NPO overnight, improved sodium from 124->129 with hydration, improved leukocytosis, stable hemoglobin, hemodynamically stable and afebrile. Had 950 mL urine output overnight. Will be going to the OR this afternoon. Seen immediately post-op, groggy and cold, saturation low though waveform not consistent and extremities are cold. Request forehead probe and continuous pulse oximetry. Placed on oxy-mask at 8 L, saturation in the low 90s. Awake, starting to be more with it. Getting settled back in room. Requests that we contact her to update him. Ok with sips of water. Medications: Reviewed: Yes Medication Review Details: Active Medications Generic Name Dose Route Start Last Admin Trade Name Freq PRN Reason Stop Dose Admin Acetaminophen 650 mg 07/25/19 14:22 Tylenol PO Q6H PRN Mild/Mod Pain Or Temp >/= 101 Albuterol Sulfate 2.5 mg 07/26/19 13:26 Albuterol INHALATION ONCE PRN WHEEZING Calcium Carbonate 500 mg 07/25/19 14:22 Tums PO Q4H PRN INDIGESTION Dexamethasone 4 mg 07/26/19 13:26 Decadron IVP 07/27/19 13:26 Q5M PRN Nausea unrelieved by Reglan Famotidine 20 mg 07/26/19 13:26 Pepcid Inj IVP ONCE PRN HEARTBURN Fentanyl 50 mcg 07/26/19 13:26 Sublimaze IVP Q10M PRN Preop Pain Fentanyl 100 mcg 07/26/19 13:26 Sublimaze IVP ONCE PRN Per anesthesia fo r block Fentanyl 50 mcg 07/26/19 13:26 Sublimaze IVP 07/27/19 13:26 Q5M PRN Pain level 6-10 P ACU Phase I Hydromorphone HCl 0.25 mg 07/26/19 13:26 Dilaudid Inj IVP 07/27/19 13:26 Q10M PRN Pain level 4-6 PA CU Phase I Hydromorphone HCl 0.5 mg 07/26/19 13:26 Dilaudid Inj IVP 07/27/19 13:26 Q10M PRN Pain level 7-10 P ACU Phase I Sodium Chloride 1,000 mls @ 125 m ls/hr 07/25/19 14:22 07/26/19 06:29 Sodium Chloride 0.9% IV 125 mls/hr .Q8H CECY Administration Sodium Chloride 1,000 mls @ 30 ml s/hr 07/26/19 13:30 07/26/19 13:37 Sodium Chloride 0.9% IV 07/27/19 13:29 30 mls/hr .Q24H CECY Administration Sodium Chloride 500 mls @ 999 mls /hr 07/26/19 13:26 Sodium Chloride 0.9% IV .Q31M PRN HYPOTENSION Ipratropium Bromid e 0.5 mg 07/26/19 13:26 Atrovent Neb INHALATION ONCE PRN WHEEZING Lidocaine HCl 0.1 ml 07/26/19 13:26 Lidocaine 1% INTRADERMA 07/27/19 13:25 PRN PRN anesthetic prior to IV start Lidocaine HCl 1 ml 07/26/19 13:26 Lidocaine 2% Vis cous TOPICAL PRN PRN Anesthetic prior to IV start Lorazepam 0.5 mg 07/25/19 14:22 07/25/19 17:09 Ativan PO 0.5 mg BID PRN Administration anxiety Meperidine HCl 12.5 mg 07/26/19 13:26 Demerol IVP 07/27/19 13:26 Q5M PRN Shivering PACU Ph ase I Metoclopramide HCl 10 mg 07/26/19 13:26 Reglan IVP ONCE PRN N/V if zofran ine ffective Metoclopramide HCl 10 mg 07/26/19 13:26 Reglan IVP 07/27/19 13:26 Q5M PRN Nausea unrelieved by Zofran Midazolam HCl 2 mg 07/26/19 13:26 Versed IVP Q5M PRN Preop Anxiety Midazolam HCl 5 mg 07/26/19 13:26 Versed IVP ONCE PRN Per anesthesia fo r block Morphine Sulfate 2 mg 07/25/19 14:22 07/26/19 06:29 Morphine IVP 2 mg Q4H PRN Administration SEVERE PAIN Morphine Sulfate 2 mg 07/26/19 13:26 Morphine IVP 07/27/19 13:26 Q5M PRN Pain level 2-5 PA CU Phase I Morphine Sulfate 2 mg 07/26/19 13:26 Morphine IVP 07/27/19 13:26 Q2M PRN Pain level 6-10 P ACU Phase I Morphine Sulfate 0 mg 07/26/19 13:26 Morphine IVP Q5M PRN Breakthrough Pain PACU PhaseII Nicotine 1 patch 07/26/19 09:00 07/26/19 08:34 Nicoderm 7 Mg Pa tch TRANSDERMA 1 patch DAILY CECY Administration Ondansetron HCl 4 mg 07/25/19 14:22 07/26/19 08:34 Zofran IVP 4 mg Q6H PRN Administration vomiting, or N/V if npo Ondansetron HCl 4 mg 07/26/19 13:26 Zofran IVP Q5M PRN NAUSEA AND VOMITI NG Ondansetron HCl 4 mg 07/26/19 13:26 Zofran IVP 07/27/19 13:26 Q5M PRN Nausea PACU Phase I Ondansetron HCl 4 mg 07/26/19 13:26 Zofran IVP Q15M PRN Nausea/Vomiting P ACU PHASE II Oxycodone/Acetamin ophen 1 tab 07/25/19 14:22 07/26/19 08:34 Percocet 5-325 M g PO 1 tab Q4H PRN Administration moderate to sever e pain Scopolamine 1 patch 07/26/19 13:26 Transderm-Scop TRANSDERMA ONCE PRN Nausea/ Vomiting Prophylaxis Senna/Docusate Sod ium 1 tab 07/25/19 18:00 07/26/19 08:35 Senna-S PO 1 tab BID CECY Administration acetaminophen [From Vicodin] Allergy (Verified 07/25/19 11:25) swelling hydrocodone [From Vicodin] Allergy (Verified 07/25/19 11:25) swelling ibuprofen Allergy (Verified 07/25/19 11:25) swelling Vitals/I&O/Wt Last Vital Signs Temp 97.5 F L 07/26/19 13:07 Pulse 92 07/26/19 13:34 Resp 18 07/26/19 13:32 BP 130/71 07/26/19 13:07 Pulse Ox 92 07/26/19 13:32 07/26/19 07/26/19 07/26/19 06:59 14:59 22:59 Intake Total 1120 / 2038.75 160 / 160 Output Total 950 / 1250 Balance 170 / 788.75 160 / 160 Weight last 48 hrs Weight 53.24 kg Weight 52.163 kg Physical Exam Const: COMMON NORMALS: no acute distress and alert GENERAL APPEARANCE: cooperative, comfortable, frail appearing and appears older than stated age NUTRITIONAL APPEARANCE: thin ORIENTATION/CONSCIOUSNESS: Yes awake OTHER: - somewhat groggy after surgery HENMT: COMMON NORMALS: normocephalic, atraumatic and hearing grossly normal bilaterally HEAD & SCALP: normocephalic and atraumatic MOUTH: moist mucous membranes abnormal Details: parched Eye: COMMON NORMALS: Equal, round and reactive pupils present, EOMs intact bilaterally and conjunctivae normal CONJUNCTIVA: Yes conjunctivae normal PUPIL: Yes Equal, round and reactive pupils present Neck/C-Spine: COMMON NORMALS: full ROM GENERAL: Yes normal visual inspection and Yes trachea midline Chest: CHEST: Yes Symmetrical chest wall rise Resp: COMMON NORMALS: normal respiratory effort, No retractions, No use of accessory muscles and clear to auscultation bilaterally EFFORT & INSPECTION: Yes able to speak in complete sentences, Yes symmetric chest movement and No tachypneic AUSCULTATION: clear to auscultation bilaterally OTHER: -on 8 L oxy-mask, saturation in low 90s Cardio: COMMON NORMALS: regular rate, regular rhythm, S1 normal heart sound present, S2 normal heart sound present and No murmurs present (Cardio) RATE: regular rate and tachycardic RHYTHM: regular rhythm HEART SOUNDS: S1 normal heart sound present and S2 normal heart sound present GI: COMMON NORMALS: Normal to inspection, nondistended, normoactive bowel sounds present, Soft to palpation and non-tender PALPATION: Yes Soft to palpation Extremity: COMMON NORMALS: no clubbing, cyanosis or edema and no pedal edema NARRATIVE EXTREMITY EXAM: -LLE: clean/dry/intact dressing in place, no apparent hematoma Neuro: COMMON NORMALS: moves all extremities, no focal motor deficits and no sensory deficits noted SENSORIUM/ORIENTATION: Yes alert Psych: COMMON NORMALS: mental status grossly normal, Normal thought process present, cooperative, normal affect and speech normal SPEECH: Yes normal speech THOUGHT PROCESS: Normal thought process present Skin: COMMON NORMALS: no rashes or lesions noted, no jaundice, no petechiae and no mottling GENERAL SKIN EXAM: no rashes or lesions noted Urinary Catheter Management^: Bynum: Cath Placed During This Visit: yes Reason for Continuing Indwelling Catheter: Required Immobilization for Trauma or Surgery or Anesthesia Urinary Catheter Date of Insertion: 07/25/19 Urinary Catheter Time of Insertion: 13:20 Data : 07/26/19 05:30 07/26/19 05:30 A&P Assessment and plan (1) Hip fracture, left: -secondary to mechanical fall at home earlier this AM -imaging reviewed -has received 4 mg dose of IV morphine; continue pain control as needed -fall precautions, strict bed rest -placement of Bynum catheter, assess daily for removal, monitor Is & Os -Ortho consult by Dr. Ventura appreciated; OR this afternoon -noted leukocytosis now improving, low clinical suspicion for infection, pending UA, CXR with noted hyperinflation, atelectasis, L pleural effusion -VSS; continue to monitor -IVF hydration -NPO after midnight -supplemental oxygen as needed, continue to monitor respiratory status -noted suspicion for AAA on abdominal imaging, CT confirms this, 4.67 cm AAA, no dissection; prominent constipation, diverticulosis. Will need continued surveillance of AAA -coags wnl, not on any AC or antiplatelet therapy -lake-op abx -PT/OT evaluations post-op Status: Acute Qualifiers: Encounter type: initial encounter Fracture type: closed Qualified Code(s): S72.002A - Fracture of unspecified part of neck of left femur, initial encounter for closed fracture (2) Hyponatremia: -poor oral intake recently so likely due to dehydration; improving Na -bolus of 1 L NS to be given in ED; IVF maintanance thereafter -close monitoring of Na levels to avoid over-correction, corrected Na is 129 -TSH: wnl Status: Acute (3) Protein calorie malnutrition: -BMI-19 kg/m2 -poor appetite; added Ensure to meals Status: Chronic Qualifiers: Protein-calorie malnutrition severity: moderate Qualified Code(s): E44.0 - Moderate protein-calorie malnutrition (4) Depression: -hold citalopram due to hyponatremia Status: Chronic Qualifiers: Active/Remission status: remission status unspecified Depression Type: major depressive disorder Major depression recurrence: unspecified whether recurrent Qualified Code(s): F32.9 - Major depressive disorder, single episode, unspecified (5) Anxiety: -anxiolytics PRN Status: Chronic (6) Smoker: -1/2 PPD -nicotine replacement therapy Status: Chronic (7) COPD (chronic obstructive pulmonary disease): -no acute exacerbation currently -supplemental oxygen as needed, monitor respiratory status Status: Chronic Qualifiers: COPD type: emphysema Emphysema type: unspecified Qualified Code(s): J43.9 - Emphysema, unspecified Additional A&P Information -GI ppx with PPI -DVT ppx with SCDs, hold AC for surgery -Dispo: home with HH vs. SNF -Code status: FULL code; discussed with patient and at bedside Attestations Medical Necessity Statement*: Patient requires hospitalization pending surgical repair of L hip fracture, and appropriate post-op care. Time Spent in Patient Care: 16 - 35 minutes (>than 50% of time spent in counselling and/or direct pt care on unit) . Coding Level of Care Code Acute Hacksaw Inspector for [facility] Fwd Exam Comprehensive Diagnoses Hip fracture, left S72.002A Encounter type: initial encounter Fracture type: closed Hyponatremia E87.1 Protein calorie malnutrition E44.0 Protein-calorie malnutrition severity: moderate Depression F32.9 Active/Remission status: remission status unspecified Depression Type: major depressive disorder Major depression recurrence: unspecified whether recurrent Anxiety F41.9 Smoker F17.200 COPD (chronic obstructive pulmonary disease) J43.9 COPD type: emphysema Emphysema type: unspecified
--- NOTE | 2019-07-26 15:43 | XR_ITS ---
WS: [id number] XR pelvis 1-2V* [id number] REASON FOR EXAM: Status post bipolar hip arthroplasty FINDINGS: This study shows recent insertion of a arthroplasty on the left side are seen in the soft t issue extends down the leg. The shaft is normal. There is no fractures seen the subcapital fracture has been removed and replaced with a arthroplasty. XR/XR pelvis 1-2V* [id number] IMPRESSION: Satisfactory alignment arthroplasty on the left side
[2019-07-26] MEDS: chlorhexidine gluconate 0.12% Btl 473 mL 30 ML MUCOUS MEM ×2 (17:01→21:09)
[2019-07-26] MEDS: calcium carbonate 500 mg Chew Tablet 1000 MG PO (17:04)
[2019-07-26] MEDS: iron polysaccharide complex 150 mg Capsule PO (17:05)
[2019-07-26 17:30] LABS: Anion Gap 16.3 (5-19); Blood Urea Nitrogen 5 mg/dL (8-23); Calcium 8.2 mg/dL (8.5-10.5); Carbon Dioxide 23 mmol/L (22-29); Chloride 97 mmol/L (98-107); Glucose 140 mg/dL (65-115); Osmolality Calculated 272 mOsm/kg (285-295); Potassium 4.3 mmol/L (3.5-5.1); Sodium 132 mmol/L (136-145)
[2019-07-26 17:34] LABS: Blood Urine 3+ (Negative); Glucose Urine UA Norm (Normal); Ketones Urine Negative (Negative); Protein Urine Neg (Negative); Specific Gravity, Urine 1.025 (1.005-1.030); Urine Color Yellow (Yellow); pH Urine 5 (5-7)
[2019-07-26 17:35] LABS: Add Urine Culture? Yes; Add Urine Microscopic? YES; Bacteria Urine 2+; Bilirubin Urine Neg (NEGATIVE); Leukocyte Esterase Urine Trace (Negative); Mucus Urine 1+; Nitrate Urine Negative (Negative); Squamous Epithelial Cell Urine 0-4 (0-5); Urobilinogen Urine Neg (Negative)
[2019-07-26] MEDS: oxyCODONE 5 mg IR Tab/Cap PO (19:59)
[2019-07-27] VITALS (13 sets, daily range): BP systolic 90–122; BP diastolic 50–74; PULSE 92–114; RESP 14–20; TEMP 36.7–37.1; O2SAT 88–97; BMI 18.9
[2019-07-27 02:34] LABS: Basophils % 0.2 %; Hematocrit 31.3 % (37.0-47.0); Hemoglobin 9.8 g/dL (11.5-15.3); Lymphocytes # 0.5 10^3/uL (0.8-4.8); Lymphocytes % 5.3 %; Mean Corpuscular HGB Conc 31.3 g/dL (30.0-36.0); Mean Corpuscular Hemoglobin 28.7 pg (28.0-34.0); Mean Corpuscular Volume 91.5 fL (81-99); Mean Platelet Volume 9.6 fL (7.4-10.4); Monocytes # 1.4 10^3/uL (0.2-0.9); Monocytes % 13.5 %; Neutrophils # 8.2 10^3/uL (1.8-7.7); Neutrophils % 80.4 %; Nucleated Red Blood Cells % 0 %; Platelet Count 229 10^3/cmm (130-400); Red Blood Count 3.42 10^6/uL (4.1-5.3); Red Cell Distribution Width 12.7 % (12.1-15.1); White Blood Count 10.2 10^3/uL (4.0-10.0)
[2019-07-27] MEDS: sodium chloride 0.9% 1,000 ML 125 ML IV ×2 (02:43→09:05)
[2019-07-27] MEDS: oxyCODONE 5 mg IR Tab/Cap PO ×4 (02:45→16:44)
[2019-07-27 02:58] LABS: Anion Gap 10.9 (5-19); Blood Urea Nitrogen 5 mg/dL (8-23); Calcium 8.4 mg/dL (8.5-10.5); Carbon Dioxide 26 mmol/L (22-29); Chloride 98 mmol/L (98-107); Glucose 105 mg/dL (65-115); Osmolality Calculated 268 mOsm/kg (285-295); Potassium 3.9 mmol/L (3.5-5.1); Sodium 131 mmol/L (136-145)
--- NOTE | 2019-07-27 06:32 | PC.NURSE ---
Patient requested that she be able to talk to her Doctor before her Bynum catheter is removed. She stated that she is incontinent and feels like she should be able to request her catheter stay in until she talks to her Doctor. I explained that to her the policy of removing her Bynum catheter post op day 1 and the risk of UTI increases the longer we leave it in. She said she understood this but wanted to talk to her Doctor.
[2019-07-27] MEDS: aspirin 325 mg EC Tablet PO (08:19)
[2019-07-27] MEDS: chlorhexidine gluconate 0.12% Btl 473 mL 30 ML MUCOUS MEM ×4 (08:19→19:44)
[2019-07-27] MEDS: iron polysaccharide complex 150 mg Capsule PO ×2 (08:19→17:21)
[2019-07-27] MEDS: calcium carbonate 500 mg Chew Tablet 1000 MG PO ×2 (08:19→17:21)
[2019-07-27] MEDS: cholecalciferol (vitamin D3) 1,000 unit Tablet 1000 UNIT PO (08:20)
[2019-07-27] MEDS: multivitamin therapeutic Tablet 1 TAB PO (08:20)
[2019-07-27] MEDS: citalopram 20 mg Tablet PO (08:20)
[2019-07-27] MEDS: sennosides-docusate Tablet 1 TAB PO ×2 (08:20→17:20)
[2019-07-27] MEDS: LORazepam 0.5 mg Tablet PO (08:20)
[2019-07-27] MEDS: nicotine 7 mg Patch 1 PATCH TRANSDERMA (08:21)
[2019-07-27] MEDS: sodium chloride 0.9% 500 ML IV (12:15)
--- NOTE | 2019-07-27 14:45 | P.PN_ITS ---
Subjective Subjective: Interval history: POD # 1 s/p L bipolar hip arthoplasty, has worked well with PT, sitting in a chair this AM, Bynum catheter removed this AM. Noted to be hypotensive and has not yet voided so will give 500 mL NS bolus and monitor. Pain seems well controlled, remains on supplemental oxygen, 4 L NC currently. Desaturated to the 80s even with oxygen use during PT session. Dr figueroa changed this AM, has steri-strips in place. After receiving bolus, was able to void and BP and HR improved. Medications: Reviewed: Yes Medication Review Details: Active Medications Generic Name Dose Route Start Last Admin Trade Name Freq PRN Reason Stop Dose Admin Acetaminophen 650 mg 07/25/19 14:22 Tylenol PO Q6H PRN Mild/Mod Pain Or Temp >/= 101 Aspirin 325 mg 07/27/19 09:00 07/27/19 08:19 Aspirin Ec PO 325 mg DAILY CECY Administration Calcium Carbonate 1,000 mg 07/26/19 18:00 07/27/19 08:19 Tums PO 1,000 mg BID CECY Administration Cefuroxime Axetil 250 mg 07/27/19 18:00 Ceftin PO BID [facility] Protocol Chlorhexidine Gluc kerri 30 ml 07/26/19 17:00 07/27/19 12:17 Perigard MUCOUS MEM 30 ml QID CECY Administration Citalopram Hydrobr omide 20 mg 07/27/19 09:00 07/27/19 08:20 Celexa PO 20 mg DAILY CECY Administration Lorazepam 0.5 mg 07/25/19 14:22 07/27/19 08:20 Ativan PO 0.5 mg BID PRN Administration anxiety Morphine Sulfate 2 mg 07/25/19 14:22 07/26/19 06:29 Morphine IVP 2 mg Q4H PRN Administration SEVERE PAIN Multivitamins Ther apeutic 1 tab 07/27/19 09:00 07/27/19 08:20 Multivitamin Tab PO 1 tab DAILY CECY Administration Mupirocin 1 applic 07/26/19 18:00 07/27/19 07:20 Bactroban NASAL 07/31/19 17:59 Not Given BID CECY Naloxone HCl 0.1 mg 07/26/19 15:43 Narcan IVP Q2M PRN Respiratory rate less than 8. Nicotine 1 patch 07/26/19 09:00 07/27/19 08:21 Nicoderm 7 Mg Pa tch TRANSDERMA 1 patch DAILY CECY Administration Ondansetron HCl 4 mg 07/25/19 14:22 07/26/19 08:34 Zofran IVP 4 mg Q6H PRN Administration vomiting, or N/V if npo Ondansetron HCl 4 mg 07/26/19 15:43 Zofran IVP Q6H PRN NAUSEA AND VOMITI NG Oxycodone HCl 5 mg 07/26/19 15:43 07/27/19 12:12 Oxycodone Ir PO 5 mg Q4H PRN Administration MODERATE PAIN Oxycodone/Acetamin ophen 1 tab 07/25/19 14:22 07/26/19 22:56 Percocet 5-325 M g PO 1 tab Q4H PRN Administration moderate to sever e pain Polysaccharide Iro n Complex 150 mg 07/26/19 18:00 07/27/19 08:19 Ferrex PO 150 mg BIDWM CECY Administration Senna/Docusate Sod ium 1 tab 07/25/19 18:00 07/27/19 08:20 Senna-S PO 1 tab BID CECY Administration Senna/Docusate Sod ium 2 tab 07/26/19 18:00 07/27/19 07:21 Senna-S PO Not Given BID CECY Tramadol HCl 50 mg 07/26/19 15:43 Ultram PO Q4H PRN MILD TO MODERATE PAIN Vitamin D 1,000 unit 07/27/19 09:00 07/27/19 08:20 Vitamin D3 PO 1,000 unit DAILY CECY Administration acetaminophen [From Vicodin] Allergy (Verified 07/25/19 11:25) swelling hydrocodone [From Vicodin] Allergy (Verified 07/25/19 11:25) swelling ibuprofen Allergy (Verified 07/25/19 11:25) swelling Vitals/I&O/Wt Last Vital Signs Temp 98.5 F 07/27/19 11:07 Pulse 106 H 07/27/19 14:16 Resp 18 07/27/19 12:12 BP 106/64 07/27/19 14:16 Pulse Ox 88 L 07/27/19 12:38 07/26/19 07/27/19 07/27/19 22:59 06:59 14:59 Intake Total 1507.5 / 1667.5 1240 / 2907.5 3065.833 / 3065.833 Output Total 1250 / 1250 1400 / 2650 300 / 300 Balance 257.5 / 417.5 -160 / 257.5 2765.833 / 2765.833 Weight last 48 hrs Weight 61.377 kg Weight 53.24 kg Weight 53.24 kg Physical Exam Const: COMMON NORMALS: no acute distress and alert GENERAL APPEARANCE: cooperative, comfortable, frail appearing and appears older than stated age NUTRITIONAL APPEARANCE: thin ORIENTATION/CONSCIOUSNESS: Yes awake OTHER: - somewhat groggy after surgery HENMT: COMMON NORMALS: normocephalic, atraumatic and hearing grossly normal bilaterally HEAD & SCALP: normocephalic and atraumatic MOUTH: moist mucous membranes abnormal Details: parched Eye: COMMON NORMALS: Equal, round and reactive pupils present, EOMs intact bilaterally and conjunctivae normal CONJUNCTIVA: Yes conjunctivae normal PUPIL: Yes Equal, round and reactive pupils present Neck/C-Spine: COMMON NORMALS: full ROM GENERAL: Yes normal visual inspect ion and Yes trachea midline Chest: CHEST: Yes Symmetrical chest wall rise Resp: COMMON NORMALS: normal respiratory effort, No retractions, No use of accessory muscles and clear to auscultation bilaterally EFFORT & INSPECTION: Yes able to speak in complete sentences, Yes symmetric chest movement and No tachypneic AUSCULTATION: clear to auscultation bilaterally OTHER: -on 4 L NC, saturation in low 90s Cardio: COMMON NORMALS: regular rate, regular rhythm, S1 normal heart sound present, S2 normal heart sound present and No murmurs present (Cardio) RATE: regular rate and tachycardic RHYTHM: regular rhythm HEART SOUNDS: S1 normal heart sound present and S2 normal heart sound present GI: COMMON NORMALS: Normal to inspection, nondistended, normoactive bowel sounds present, Soft to palpation and non-tender PALPATION: Yes Soft to palpation Extremity: COMMON NORMALS: no clubbing, cyanosis or edema and no pedal edema NARRATIVE EXTREMITY EXAM: -LLE: steri-strips in place, no apparent hematoma, soft, some tenderness around incision site Neuro: COMMON NORMALS: moves all extremities, no focal motor deficits and no sensory deficits noted SENSORIUM/ORIENTATION: Yes alert Psych: COMMON NORMALS: mental status grossly normal, Normal thought process present, cooperative, normal affect and speech normal SPEECH: Yes normal speech THOUGHT PROCESS: Normal thought process present Skin: COMMON NORMALS: no rashes or lesions noted, no jaundice, no petechiae and no mottling GENERAL SKIN EXAM: no rashes or lesions noted Urinary Catheter Management^: Bynum: Cath Placed During This Visit: yes, but has since been removed by the nurse Reason for Continuing Indwelling Catheter: Decision to DC Catheter Urinary Catheter Date of Insertion: 07/25/19 Urinary Catheter Time of Insertion: 13:20 Date Urinary Catheter Removed: 07/27/19 Time Urinary Catheter Discontinued: 07:00 Data : 07/27/19 02:23 07/27/19 02:23 Micro: Microbiology 07/26/19 16:53 Urine Culture - Preliminary Urine,Clean Catch A&P Assessment and plan (1) Hip fracture, left: -secondary to mechanical fall at home; noted to have displaced L subcapital fracture; POD # 1 s/p bipolar hip arthroplasty -imaging reviewed -continue pain control as needed -fall precautions, weight bearing as tolerated on LLE -Bynum catheter removed this AM, monitor urine output -Ortho consult by Dr. Ventura appreciated -noted leukocytosis now improving, low clinical suspicion for infection, CXR with noted hyperinflation, atelectasis, L pleural effusion; UA indicative of infection though urine cx so far negative. Due to recent surgery, will continue antibiotic coverage with Ceftin -Hypotensive, tachycardic this AM; afebrile, requiring supplemental oxygen support; continue to monitor vital signs -off IVF; encourage oral hydration. Bolus if needed -NPO after midnight -supplemental oxygen as needed, continue to monitor respiratory status -noted suspicion for AAA on abdominal imaging, CT confirms this, 4.67 cm AAA, no dissection; prominent constipation, diverticulosis. Will need continued surveillance of AAA -coags wnl, not on any AC or antiplatelet therapy -lake-op abx completed -PT/OT evaluations post-op appreciated -IS Status: Acute Qualifiers: Encounter type: initial encounter Fracture type: closed Qualified Code(s): S72.002A - Fracture of unspecified part of neck of left femur, initial encounter for closed fracture (2) Hyponatremia: -poor oral intake recently so likely due to dehydration; improving Na with hydration -off IVF; encourage oral hydration -close monitoring of Na levels to avoid over-correction -TSH: wnl Status: Acute (3) Protein calorie malnutrition: -BMI-19 kg/m2 -poor appetite; added Ensure to meals Status: Chronic Qualifiers: Protein-calorie malnutrition severity: moderate Qualified Code(s): E44.0 - Moderate protein-calorie malnutrition (4) Depression: -hold citalopram due to hyponatremia Status: Chronic Qualifiers: Active/Remission status: remission status unspecified Depression Type: major depressive disorder Major depression recurrence: unspecified whether recurrent Qualified Code(s): F32.9 - Major depressive disorder, single episode, unspecified (5) Anxiety: -anxiolytics PRN Status: Chronic (6) Smoker: -1/2 PPD -nicotine replacement therapy Status: Chronic (7) COPD (chronic obstructive pulmonary disease): -no acute exacerbation currently -supplemental oxygen as needed, monitor respiratory status -may need home oxygen evaluation prior to d/c Status: Chronic Qualifiers: COPD type: emphysema Emphysema type: unspecified Qualified Code(s): J43.9 - Emphysema, unspecified Additional A&P Information -GI ppx with PPI -DVT ppx with SCDs, ASA 325 mg daily -Dispo: home with HH -Code status: FULL code; discussed with patient and at bedside Attestations Medical Necessity Statement*: Patient requires hospitalization for continued post-op care, pain control, therapy, and need to wean down oxygen requirement as she is not oxygen dependent at baseline. Time Spent in Patient Care: 16 - 35 minutes (>than 50% of time spent in counselling and/or direct pt care on unit) . Coding Level of Care Code Acute Meeting Coordinator for [facility] Fwd Exam Comprehensive Diagnoses Hip fracture, left S72.002A Encounter type: initial encounter Fracture type: closed Hyponatremia E87.1 Protein calorie malnutrition E44.0 Protein-calorie malnutrition severity: moderate Depression F32.9 Active/Remission status: remission status unspecified Depression Type: major depressive disorder Major depression recurrence: unspecified whether recurrent Anxiety F41.9 Smoker F17.200 COPD (chronic obstructive pulmonary disease) J43.9 COPD type: emphysema Emphysema type: unspecified
[2019-07-27] MEDS: cefUROXime 250 mg Tablet PO (17:20)
--- NOTE | 2019-07-27 21:43 | P.PN_ITS ---
Subjective Subjective: Interval history: The patient is doing well. She is working with physical therapy and would prefer discharge to home when stable. Medications: Reviewed: Yes Vitals/I&O/Wt Last Vital Signs Temp 98.1 F 07/27/19 20:00 Pulse 92 07/27/19 20:00 Resp 18 07/27/19 20:00 BP 122/74 07/27/19 20:00 Pulse Ox 92 07/27/19 20:00 07/27/19 07/27/19 07/27/19 06:59 14:59 22:59 Intake Total 1240 / 2907.5 3115.833 / 3115.833 720 / 3835.833 Output Total 1400 / 2650 300 / 300 350 / 650 Balance -160 / 257.5 2815.833 / 2815.833 370 / 3185.833 Weight last 48 hrs Weight 135 lb 5 oz Weight 117 lb 6 oz Weight 117 lb 6 oz Physical Exam Const: COMMON NORMALS: no acute distress, patient oriented x3 and alert GENERAL APPEARANCE: cooperative, comfortable and frail appearing NUTRITIONAL APPEARANCE: thin ORIENTATION/CONSCIOUSNESS: Yes awake HENMT: COMMON NORMALS: normocephalic and atraumatic HEAD & SCALP: normocephalic and atraumatic Eye: GENERAL EYE: appearance normal, both eyes and all related structures Chest: COMMONS NORMALS: normal inspection of the chest Resp: COMMON NORMALS: normal respiratory effort EFFORT & INSPECTION: Yes able to speak in complete sentences and Yes symmetric chest movement Extremity: GENERAL: Yes normal exam except as noted LEFT LOWER EXTREMITY: Yes hip joint Left hip: Yes inspection (No swelling), Yes palpation (Minimal tenderness to palpation about the hip) and Yes neurovascular exam (Intact with no evidence of DVT) Neuro: COMMON NORMALS: patient oriented x3 SENSORIUM/ORIENTATION: Yes alert Psych: COMMON NORMALS: mental status grossly normal APPEARANCE: Yes grossly normal ATTITUDE: Yes calm and Yes engaged ATTENTION/CONCENTRATION: Yes attention grossly intact Skin: COMMON NORMALS: no rashes or lesions noted GENERAL SKIN EXAM: no rashes or lesions noted Urinary Catheter Management^: Bynum: Cath Placed During This Visit: yes, but has since been removed by the nurse Reason for Continuing Indwelling Catheter: Decision to DC Catheter Urinary Catheter Date of Insertion: 07/25/19 Urinary Catheter Time of Insertion: 13:20 Date Urinary Catheter Removed: 07/27/19 Time Urinary Catheter Discontinued: 07:00 Data : 07/27/19 02:23 07/27/19 02:23 Micro: Microbiology 07/26/19 16:53 Urine Culture - Preliminary Urine,Clean Catch A&P Assessment and plan (1) Subcapital fracture of left hip: The patient is continuing to work with physical therapy. She would like to be discharged to home with home health. Status: Acute Qualifiers: Encounter type: initial encounter Fracture type: closed Qualified Code(s): S72.012A - Unspecified intracapsular fracture of left femur, initial encounter for closed fracture Attestations Medical Necessity Statement*: Patient requires inpatient care to further optimize for discharge. Coding Level of Care Code Acute Clinical Care Leader for [facility] Diagnoses Subcapital fracture of left hip S72.012A Encounter type: initial encounter Fracture type: closed
[2019-07-28 04:00] VITALS: BP 105/80; PULSE 112; RESP 20; TEMP 36.8; O2SAT 96
[2019-07-28 05:08] LABS: Basophils % 0.2 %; Hematocrit 31.7 % (37.0-47.0); Hemoglobin 10.4 g/dL (11.5-15.3); Lymphocytes # 0.6 10^3/uL (0.8-4.8); Lymphocytes % 5.2 %; Mean Corpuscular HGB Conc 32.8 g/dL (30.0-36.0); Mean Corpuscular Hemoglobin 29.4 pg (28.0-34.0); Mean Corpuscular Volume 89.5 fL (81-99); Mean Platelet Volume 10.1 fL (7.4-10.4); Monocytes # 1.6 10^3/uL (0.2-0.9); Monocytes % 12.9 %; Nucleated Red Blood Cells % 0 %; Platelet Count 259 10^3/cmm (130-400); Red Blood Count 3.54 10^6/uL (4.1-5.3); Red Cell Distribution Width 12.7 % (12.1-15.1); White Blood Count 12.3 10^3/uL (4.0-10.0)
[2019-07-28 05:54] VITALS: BMI 21.8
[2019-07-28 07:36] VITALS: BP 125/67; PULSE 92; RESP 18; TEMP 36.4; O2SAT 91
[2019-07-28] MEDS: multivitamin therapeutic Tablet 1 TAB PO (08:32)
[2019-07-28] MEDS: sennosides-docusate Tablet 2 TAB PO (08:32)
[2019-07-28] MEDS: nicotine 7 mg Patch 1 PATCH TRANSDERMA (08:32)
[2019-07-28] MEDS: cefUROXime 250 mg Tablet PO (08:32)
[2019-07-28] MEDS: aspirin 325 mg EC Tablet PO (08:32)
[2019-07-28] MEDS: chlorhexidine gluconate 0.12% Btl 473 mL 30 ML MUCOUS MEM (08:33)
[2019-07-28] MEDS: cholecalciferol (vitamin D3) 1,000 unit Tablet 1000 UNIT PO (08:33)
[2019-07-28] MEDS: iron polysaccharide complex 150 mg Capsule PO (08:33)
[2019-07-28] MEDS: citalopram 20 mg Tablet PO (08:33)
[2019-07-28] MEDS: calcium carbonate 500 mg Chew Tablet 1000 MG PO (08:33)
--- NOTE | 2019-07-28 10:00 | PC.SOCIAL ---
IMM Page 2 of IMM given to patient. Initialed, dated, and timed and placed in chart. Copy provided.
[2019-07-28 10:06] VITALS: O2SAT 87; O2SAT 93
[2019-07-28] MEDS: metoprolol tartrate 25 mg Tablet 12.5 MG PO (10:06)
--- NOTE | 2019-07-28 10:14 | PM.DCS ---
Discharge Providers Date of Admission: 07/25/19 12:26 Date of Discharge: July 28, 2019 Attending Provider at Admission: Sirisha Vargas MD Attending Provider at Discharge: Sirisha Vargas MD Primary Care Provider: Florentin Amaro MD Diagnoses at Discharge Discharge Diagnosis (1) Subcapital fracture of left hip: Status: Acute Problem details: -secondary to mechanical fall at home; noted to have displaced L subcapital fracture; POD # 2 s/p bipolar hip arthroplasty -imaging reviewed -continue pain control as needed -fall precautions, weight bearing as tolerated on LLE -Bynum catheter removed this AM, monitor urine output -Ortho consult by Dr. Ventura appreciated -noted leukocytosis now improving, low clinical suspicion for infection, CXR with noted hyperinflation, atelectasis, L pleural effusion; UA indicative of infection though urine cx so far negative. Due to recent surgery, will continue antibiotic coverage with Ceftin -Hypotensive, tachycardic this AM; afebrile, requiring supplemental oxygen support; continue to monitor vital signs -off IVF; encourage oral hydration. 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 Will need continued surveillance of AAA -coags wnl, not on any AC or antiplatelet therapy prior to surgery -lake-op abx completed -PT/OT evaluations post-op appreciated -IS Qualifiers: Encounter type: initial encounter Fracture type: closed Qualified Code(s): S72.012A - Unspecified intracapsular fracture of left femur, initial encounter for closed fracture (2) Smoker: Status: Chronic Problem details: -1/2 PPD -nicotine replacement therapy (3) COPD (chronic obstructive pulmonary disease): Status: Chronic Problem details: -no acute exacerbation currently -supplemental oxygen as needed, monitor respiratory status -home oxygen evaluation done prior to d/c; qualifies for 2 L, DME arranged Qualifiers: COPD type: emphysema Emphysema type: unspecified Qualified Code(s): J43.9 - Emphysema, unspecified (4) Protein calorie malnutrition: Status: Chronic Problem details: -BMI-19 kg/m2 -poor appetite; added Ensure to meals Qualifiers: Protein-calorie malnutrition severity: moderate Qualified Code(s): E44.0 - Moderate protein-calorie malnutrition (5) Depression: Status: Chronic Problem details: -held citalopram due to hyponatremia; can resume on d/c Qualifiers: Depression Type: major depressive disorder Major depression recurrence: unspecified whether recurrent Active/Remission status: remission status unspecified Qualified Code(s): F32.9 - Major depressive disorder, single episode, unspecified (6) Anxiety: Status: Chronic Problem details: -anxiolytics PRN (7) Hyponatremia: Status: Acute Problem details: -poor oral intake recently so likely due to dehydration; improving Na with hydration -off IVF; encourage oral hydration -close monitoring of Na levels to avoid over-correction -TSH: wnl Reason for Visit Reason for Visit: GROUND LEVEL FALL, LT HIP PAIN Hospital Course Hospital Course: Patient was admitted to the medical surgical floor and orthopedics consulted due to finding of left subcapital hip fracture. Dr. Ventura saw the patient and patient had left bipolar hip arthroplasty done, 2 days post-op day #2. EBL was 50 mL and immediately post-op patient required up to 10 L supplemental oxygen via oxygen mask to maintain her saturation. She has since been weaned down to about 2 L. Due to not being oxygen dependent at baseline she has had a home oxygen evaluation confirming that she will require 2 L, DME currently being arranged. Patient has worked well with therapy and is weight bearing as tolerated on the left lower extremity. Home health has been arranged. There was a slight drop in her hemoglobin immediately postop with noted improvement today to 10.4. She has not required transfusion of any blood products. Urinalysis was somewhat indicative of infection so she has been covered with cefuroxime, will need to continue this for several days to complete her treatment course. Noted mild leukocytosis today which is likely reactive secondary to the stress of surgery as no clinical suspicion for other source of infection at this time. Bynum catheter was removed approximately 24 hours postop and she has been able to void without difficulty. She was mildly hypotensive yesterday and received a 500 mL normal saline bolus with improvement in her hemodynamic status. She has mild tachycardia part of which I suspect is due to her underlying COPD so I have started her on a low-dose metoprolol. I suspect that with oxygen use this will improve and she may be able to be taken off the metoprolol which her primary care provider can follow-up on. Surgical incision site appears to be healing appropriately, Steri-Strips in place, no noted hematoma. She was noted to be hyponatremic so hydrated with IVF with noted improvement in Na levels. Initial suspicion was that she would need more than 24 hrs for appropriate correction of hyponatremia. However, sodium increased to 129 and she was deemed an appropriate candidate for surgery sooner than initially planned. Most recent sodium is 131. Celexa was held during hospital stay due to hyponatremia but can be resumed on d/c. She will need to follow-up with Dr. Ventura as well as with her primary care provider within 1 week. Patient is to continue full dose aspirin 325 mg daily as VTE prophylaxis. Incidentally she was noted to have a AAA on imaging which will require surveillance. Discharge Summary: -Patient to follow-up with her primary care provider within 1 week. Will need surveillance imaging due to finding of AAA (4.67 cm) -Patient to follow-up with Dr. Ventura in 2 weeks Physical Exam Const: COMMON NORMALS: no acute distress and alert GENERAL APPEARANCE: cooperative, comfortable, frail appearing and appears older than stated age NUTRITIONAL APPEARANCE: thin ORIENTATION/CONSCIOUSNESS: Yes awake HENMT: COMMON NORMALS: normocephalic, atraumatic and hearing grossly normal bilaterally HEAD & SCALP: normocephalic and atraumatic MOUTH: moist mucous membranes abnormal Details: parched Eye: COMMON NORMALS: Equal, round and reactive pupils present, EOMs intact bilaterally and conjunctivae normal CONJUNCTIVA: Yes conjunctivae normal PUPIL: Yes Equal, round and reactive pupils present Neck/C-Spine: COMMON NORMALS: full ROM GENERAL: Yes normal visual inspection and Yes trachea midline Chest: CHEST: Yes Symmetrical chest wall rise Resp: COMMON NORMALS: normal respiratory effort, No retractions, No use of accessory muscles and clear to auscultation bilaterally EFFORT & INSPECTION: Yes able to speak in complete sentences, Yes symmetric chest movement and No tachypneic AUSCULTATION: clear to auscultation bilaterally OTHER: -on 2 L NC, saturation in low 90s Cardio: COMMON NORMALS: regular rate, regular rhythm, S1 normal heart sound present, S2 normal heart sound present and No murmurs present (Cardio) RATE: regular rate and tachycardic RHYTHM: regular rhythm HEART SOUNDS: S1 normal heart sound present and S2 normal heart sound present GI: COMMON NORMALS: Normal to inspection, nondistended, normoactive bowel sounds present, Soft to palpation and non-tender PALPATION: Yes Soft to palpation Extremity: COMMON NORMALS: no clubbing, cyanosis or edema and no pedal edema NARRATIVE EXTREMITY EXAM: -LLE: steri-strips in place, no apparent hematoma, soft, some tenderness around incision site Neuro: COMMON NORMALS: moves all extremities, no focal motor deficits and no sensory deficits noted SENSORIUM/ORIENTATION: Yes alert Psych: COMMON NORMALS: mental status grossly normal, Normal thought process present, cooperative, normal affect and speech normal SPEECH: Yes normal speech THOUGHT PROCESS: Normal thought process present Skin: COMMON NORMALS: no rashes or lesions noted, no jaundice, no petechiae and no mottling GENERAL SKIN EXAM: no rashes or lesions noted Urinary Catheter Management^: Bynum: Cath Placed During This Visit: yes, but has since been removed by the nurse Reason for Continuing Indwelling Catheter: Decision to DC Catheter Urinary Catheter Date of Insertion: 07/25/19 Urinary Catheter Time of Insertion: 13:20 Date Urinary Catheter Removed: 07/27/19 Time Urinary Catheter Discontinued: 07:00 Discharge Data Data Completed and Pending: Completed Studies During Hospitalization Category Date Time Status CT abdomen pelvis w con* [id number] Urge nt Cat Scan 07/25/19 12:44 Completed XR KUB portable 7 [id number] Stat Exams 07/25/19 11:30 Completed XR chest 1V mikey ble [id number] Stat Exams 07/25/19 12:15 Completed XR hip LT 2-3V wo /w pel* [id number] Stat Exams 07/25/19 11:26 Completed XR pelvis 1-2V* 7 2170 Routine Exams 07/26/19 15:43 Completed Pending at discharge Category Date Time Status Complete Blood Co unt w/Auto AM LABS Lab 07/29/19 04:00 Ordered Urine Culture Rou jermaine Lab 07/26/19 16:53 Results Labs from last 24 hours 07/28/19 03:15 WBC 12.3 H RBC 3.54 L Hgb 10.4 L Hct 31.7 L MCV 89.5 MCH 29.4 MCHC 32.8 RDW 12.7 Plt Count 259 MPV 10.1 Neut % (Auto) 81.0 Lymph % (Auto) 5.2 Darke % (Auto) 12.9 Eos % (Auto) 0.0 Baso % (Auto) 0.2 Neut # (Auto) 10.0 H Lymph # (Auto) 0.6 L Darke # (Auto) 1.6 H Eos # (Auto) 0.0 Baso # (Auto) 0.0 Nucleated RBC % (a uto) 0 Nucleated RBCs # 0.0 Vitals: Last Vital Signs Temp 97.6 F 07/28/19 07:36 Pulse 92 07/28/19 07:36 Resp 18 07/28/19 07:36 BP 125/67 07/28/19 07:36 Pulse Ox 87 L 07/28/19 10:06 Discharge Plan Discharge Patient Disposition: Home Health Service Condition: Stable Prescriptions: New cefuroxime axetil 250 mg Tablet 250 mg PO BID 7 Days Qty: 14 RF: 0 Ferrex 150 150 mg iron Capsule 150 mg PO BIDWM 30 Days Qty: 30 RF: 0 sennosides-docusate sodium 8.6-50 mg Tablet 2 tab PO BID 30 Days Qty: 120 RF: 0 aspirin 325 mg Tablet,Delayed Release (Dr/Ec) 325 mg PO DAILY 30 Days Qty: 30 RF: 0 Vitamin D3 25 mcg (1,000 unit) Tablet 1,000 unit PO DAILY 30 Days Qty: 30 RF: 0 Thera 400 mcg Tablet 1 tab PO DAILY 30 Days Qty: 30 RF: 0 oxycodone-acetaminophen 5-325 mg Tablet 1 tab PO Q4H PRN (Reason: moderate to severe pain) Qty: 30 RF: 0 tramadol 50 mg Tablet 50 mg PO Q4H PRN (Reason: Mild To Moderate Pain) Qty: 30 RF: 0 calcium carbonate 200 mg calcium (500 mg) Tablet,Chewable 1,000 mg PO BID 30 Days Qty: 300 RF: 0 metoprolol tartrate 25 mg tablet 12.5 mg PO BID 30 Days Qty: 30 RF: 0 Continued lorazepam 0.5 mg tablet 0.5 mg PO BID PRN (Reason: anxiety) 30 Days Qty: 60 RF: 5 citalopram 20 mg Tablet 20 mg PO DAILY RF: 0 Discharge Orders: Discharge Order (Routine); Ordered 07/28/19 Ordered By: Sirisha Vargas Other Ambulatory Orders: DME: Oxygen (Order) Location: None Selected Ordered By: Sirisha Vargas Referrals: [facility] [Outside] [facility] [Outside] Florentin Amaro MD [Primary Care Provider] - 4-7 days (Post hospital discharge follow up. Had L bipolar hip arthroplasty done secondary to L subcapital femur fracture. ) Mariya Ventura MD [Physician] - 2 weeks (Post hospital discharge follow up) Discharge Diet: Advance as tolerated Discharge Activity: As per PT/OT instructions and Oxygen as instructed Activity Restrictions/Additional Instructions: -Weight bearing as tolerated on LLE Discharge Attestations Time Spent in Discharge Care*: greater than 30 min Specific Discharge Activities: Specific discharge activities: educating patient, discussing with medical case manager/social workers/dc planners, documenting/other paperwork and evaluating patient/reviewing data Time Spent in Smoking Cessation: Time spent discussing smoking cessation with patient: 3 to 10 minutes Details of Smoking Cessation Education: -Discussed impact of this on wound healing, respiratory status, and overall health Status at Discharge: Cognitive status at discharge: cognitively intact, Behavioral status at discharge: cooperative, Functional status at discharge: uses cane/walker Overall status at discharge: patient is progressing back to baseline Quality Metrics Clinical Quality Measures During this hospital stay, did patient experience: None Coding Level of Care Code Acute Steam Presser for g Fwd Diagnoses Subcapital fracture of left hip S72.012A Encounter type: initial encounter Fracture type: closed Smoker F17.200 COPD (chronic obstructive pulmonary disease) J43.9 COPD type: emphysema Emphysema type: unspecified Protein calorie malnutrition E44.0 Protein-calorie malnutrition severity: moderate Depression F32.9 Depression Type: major depressive disorder Major depression recurrence: unspecified whether recurrent Active/Remission status: remission status unspecified Anxiety F41.9 Hyponatremia E87.1
[2019-07-28 10:32] VITALS: BP 125/67; PULSE 92; RESP 18; TEMP 36.4; O2SAT 91
--- NOTE | 2019-07-28 11:18 | PC.CHAP ---
Pastoral Care Encounter/Spiritual Assessment Type of Contact [] Declined academic services professional visit [] Patient/Family/Request visit [] Outpatient visit [] Follow-up visit [] Physician referral [] Code/Alert [X] Routine visit [] Staff referral [] Actively dying [] Patient sleeping [] Family support [] [] Out of room [] Palliative care [] [] Receiving care in room [] Pre-surgical visit [] Trauma [] Long length of stay [] ICU visit [] Other: Relational/Emotional Strength [X] Patient feels connected with others/family/visitors/staff [] Distress [] Loneliness/isolation [] Abandonment Spirituality of Patient [X] Person of Birgit [] Attends [employer] of their [place] [X] Believes in Prayer [] Reads Bible or Zoroastrian materials [] There are Spiritual issues to be addressed Last Remodeler Repairer Interventions [X] Prayer [X] Active listening [X] Non-anxious presence [] Spiritual/emotional support [] Crisis/trauma care [] Spiritual counseling [] Bereavement support [] Provided bereavement packet [] Provided Bible/devotional materials [] Provided toy/stuffed animal, coloring book to patient or family member [] Provided Communion [] Anointing/Michael [] Salvation [X] Completed spiritual assessment [] Other: Impact on Illness or Injury [] Angry [] Fearful [] Anxious [] Often cries [] Exhaustion [] Unable to work [] Unable to attend tenriism [] Unable to walk/stand [] Unable to read [] Unable to drive [] Unable to eat/drink [] Unable to sleep [] Unable to be with family [] Patient intubated [] Other: Nervous about getting in the car and getting out of the car and into the house. Summary: Steven visit with a steven woman. She has a supportive spouse of 55 years and her hospitalization is hard on her . Time spent with patient: 15-20 mins
--- NOTE | 2019-07-28 11:21 | PM.PN ---
Subjective Subjective: Interval history: Patient is doing well. She is up in a chair and hoping to be discharged to home today. Medications: Reviewed: Yes Vitals/I&O/Wt Last Vital Signs Temp 97.6 F 07/28/19 10:32 Pulse 92 07/28/19 10:32 Resp 18 07/28/19 10:32 BP 125/67 07/28/19 10:32 Pulse Ox 91 07/28/19 10:32 07/27/19 07/28/19 07/28/19 22:59 06:59 14:59 Intake Total 820 / 3935.833 120 / 4055.833 Output Total 350 / 650 1200 / 1850 700 / 700 Balance 470 / 3285.833 -1080 / 2205.833 -700 / -700 Weight last 48 hrs Weight 135 lb 5 oz Weight 135 lb 5 oz Weight 117 lb 6 oz Physical Exam Const: COMMON NORMALS: no acute distress, patient oriented x3 and alert GENERAL APPEARANCE: cooperative, comfortable and frail appearing NUTRITIONAL APPEARANCE: thin ORIENTATION/CONSCIOUSNESS: Yes awake HENMT: COMMON NORMALS: normocephalic and atraumatic HEAD & SCALP: normocephalic and atraumatic Eye: GENERAL EYE: appearance normal, both eyes and all related structures Chest: COMMONS NORMALS: normal inspection of the chest Resp: COMMON NORMALS: normal respiratory effort EFFORT & INSPECTION: Yes able to speak in complete sentences and Yes symmetric chest movement Extremity: GENERAL: Yes normal exam except as noted LEFT LOWER EXTREMITY: Yes hip joint (No significant swelling or erythema. Dressing is removed there is no drainage.) Left hip: Yes palpation (Minimal tenderness to palpation.), Yes ROM (Nonpainful range of motion) and Yes neurovascular exam (Intact distal to the fracture site.) Neuro: COMMON NORMALS: patient oriented x3 SENSORIUM/ORIENTATION: Yes alert Psych: COMMON NORMALS: mental status grossly normal APPEARANCE: Yes grossly normal ATTITUDE: Yes calm and Yes engaged ATTENTION/CONCENTRATION: Yes attention grossly intact Skin: COMMON NORMALS: no rashes or lesions noted GENERAL SKIN EXAM: no rashes or lesions noted Urinary Catheter Management^: Bynum: Cath Placed During This Visit: yes, but has since been removed by the nurse Reason for Continuing Indwelling Catheter: Decision to DC Catheter Urinary Catheter Date of Insertion: 07/25/19 Urinary Catheter Time of Insertion: 13:20 Date Urinary Catheter Removed: 07/27/19 Time Urinary Catheter Discontinued: 07:00 Data : 07/28/19 03:15 07/27/19 02:23 Micro: Microbiology 07/26/19 16:53 Urine Culture - Preliminary Urine,Clean Catch A&P Assessment and plan (1) Subcapital fracture of left hip: The patient is continuing to work with physical therapy. She is up in a chair and comfortable. Plan is for her to be discharged home with home health. She will follow-up with me in the office in approximately 2 weeks. Status: Acute Qualifiers: Encounter type: initial encounter Fracture type: closed Qualified Code(s): S72.012A - Unspecified intracapsular fracture of left femur, initial encounter for closed fracture Attestations Medical Necessity Statement*: Patient is to be discharged home following appropriate hospital inpatient admission for hip fracture, surgical treatment, and postoperative rehabilitation. Coding Level of Care Code Acute Sludge Control Operator for Mary Polanco Diagnoses Subcapital fracture of left hip S72.012A Encounter type: initial encounter Fracture type: closed
--- NOTE | 2019-07-30 12:50 | PC.RESP ---
SMOKING CESSATION AND PULMONARY REHAB INFORMATION SENT TO PATIENT.
== END 2019-07-28 12:50 | disposition home health service (06) | DRG 470 ==
LOC: ER 12:34 → MEDSURG 12:53
PROVIDERS: Nurse Practitioner Family; Specialist; Admitting Provider Family Medicine; PCP Family Medicine; Visit Provider Family Medicine
PROC: 0SRS0JZ Replacement of Left Hip Joint, Femoral Surface with Synthetic Substitute, Open Approach (ICD-10-PCS; CPT 27125; principal; 2019-07-26 13:30)
DX: S72.012A Unspecified intracapsular fracture of left femur, initial encounter for closed fracture (principal); E87.1 Hypo-osmolality and hyponatremia; E44.0 Moderate protein-calorie malnutrition; Z68.1 Body mass index [BMI] 19.9 or less, adult; W01.0XXA Fall on same level from slipping, tripping and stumbling without subsequent striking against object, initial encounter; F17.210 Nicotine dependence, cigarettes, uncomplicated; J43.9 Emphysema, unspecified; I71.4 Abdominal aortic aneurysm, without rupture; F41.9 Anxiety disorder, unspecified; F32.9 Major depressive disorder, single episode, unspecified; I95.9 Hypotension, unspecified
CPT/HCPCS: 12345; 36415; 51702; 71045; 72170; 73502; 74018; 74177; 80048; 80053; 80061; 81001; 82306; 83036; 83735; 84443; 85025; 85610; 86850; 86900; 87086; 93005; 94640; 94762; 96375; 97116; 97161; 97166; 97530; 97535; 99283; C1776; J0690; J2001; J2270; J2370; J2405; J2704; J2710; J3010; J3490; J7030; J7040; J7611; J7644; Q9967

== ENCOUNTER → 2019-08-09 11:57 | Outpatient (BNVA) | payer MEDICARE, SELFPAY | PROVIDERS: PCP Family Medicine; Visit Provider Specialist | DX: S72.012A Unspecified intracapsular fracture of left femur, initial encounter for closed fracture (principal); X58.XXXA Exposure to other specified factors, initial encounter | CPT/HCPCS: 73502 ==

== ENCOUNTER 2019-08-31 07:22 | Day surgery (SDC) | payer MEDICARE, SELFPAY ==
[2019-08-31] VITALS (16 sets, daily range): BP systolic 118–159; BP diastolic 57–104; PULSE 92–109; RESP 17–32; TEMP 36.4–37.4; O2SAT 90–98; BMI 15.6
--- NOTE | 2019-08-31 | XR_ITS ---
WS: [id number] C-ARM RADIOGRAPHS LEFT HIP; 3 IMAGES HISTORY: Closed reduction COMPARISON: Radiographs earlier the same day. Intraoperative reduction of the previous the described LEFT hip dislocation. Prosthetic component now in normal alignment at the acetabulum. XR/XR hip LT 2-3V wo/w pel* [id number] IMPRESSION: Successful postreduction imaging of the dislocated LEFT hip prosthesis.
--- NOTE | 2019-08-31 | SCC_ITS ---
29.5 seconds of fluoroscopic guidance, for a cumulative dose of 3.08 mGy, was provided to Dr. Ventura by the radiology department. C-arm images of the LEFT hip were saved for the patient's permanent record. BRAULIOD
--- NOTE | 2019-08-31 07:32 | XR_ITS ---
WS: [id number] LEFT HIP HISTORY: recent prosthesis; heard a pop ; leg shortened; pain COMPARISON: 08/09/2019 LEFT hip: Acute LEFT hip prosthesis dislocation. Prosthesis is superiorly and posteriorly dislocated with respect to the acetabulum. No fracture. Moderate atherosclerosis. XR/XR hip LT 2-3V wo/w pel* [id number] IMPRESSION: 1. Acute superior and posterior LEFT hip prosthesis dislocation. 2. No fracture.
--- NOTE | 2019-08-31 07:33 | W.ED.EXTPRO ---
Documented by User: LILLY Christopher 08/31/19 09:18 HPI - Extremity Problem General: Chief complaint: Extremity Problem,Nontraumatic Stated complaint: HIP PAIN Time Seen by Provider: 08/31/19 07:24 Source: patient, family and EMS Mode of arrival: EMS Limitations: no limitations History of Present Illness: HPI Narrative: Patient is a very nice 74-year-old female presents to ED today via EMS along with her who has met us here for complaints of left hip pain. Patient had a total left hip arthroplasty performed on 07/[address] Ventura for a subcapital femoral fracture. Patient tells me she has been doing very well since the surgery. She is undergoing physical therapy. states she was on the couch early this morning and went to transfer her legs up when she felt a pop and since then has been having severe pain. MD Complaint: joint pain Onset (ago): hour(s) Pain Consistency: constant Location: left Radiation: none Relieving factors: immobilization Exacerbating factors: range of motion, weight bearing and palpation Associated symptoms: Reports no associated symptoms; Deny fever(s) Review of Systems Const: Denies: fever(s), chills or body aches Musc: Reports: joint pain (L hip); Denies: neck pain, back pain, extremity pain, extremity swelling or joint swelling Neuro: Denies: numbness in extremities, weakness in extremities or sensory changes PFSH ED PFSH: Medical History Anxiety -anxiolytics PRN COPD (chronic obstructive pulmonary disease) -no acute exacerbation currently -supplemental oxygen as needed, monitor respiratory status -home oxygen evaluation done prior to d/c; qualifies for 2 L, DME arranged Depression -held citalopram due to hyponatremia; can resume on d/c Hip fracture, left Hyponatremia -poor oral intake recently so likely due to dehydration; improving Na with hydration -off IVF; encourage oral hydration -close monitoring of Na levels to avoid over-correction -TSH: wnl Protein calorie malnutrition -BMI-19 kg/m2 -poor appetite; added Ensure to meals Smoker -1/2 PPD -nicotine replacement therapy Surgical History History of bladder suspension procedure History of hysterectomy -secondary to pre-malignant lesions Family History Father Congestive heart failure Mother Dementia Sister Brain aneurysm ruptured Social History Smoking and tobacco status: current every day smoker cigarettes Packs smoked per day: 0.5 Alcohol intake: current Alcohol intake frequency: holidays/special occasions only Alcohol type: beer Household members: significant other Housing: House Marital status: Current occupational status: retired Physical Exam Const: COMMON NORMALS: no acute distress, patient oriented x3, no limitations and alert ORIENTATION/CONSCIOUSNESS: Yes oriented to person, Yes oriented to place and Yes oriented to time HENMT: COMMON NORMALS: normocephalic and atraumatic HEAD & SCALP: normocephalic and atraumatic Resp: COMMON NORMALS: normal respiratory effort and clear to auscultation bilaterally AUSCULTATION: clear to auscultation bilaterally Cardio: COMMON NORMALS: regular rhythm RATE: tachycardic (mild-102) RHYTHM: regular rhythm Extremity: GENERAL: Yes normal exam except as noted OTHER: L LE is shortened and mildly rotated; leg is warm to the touch; DP/PT pulses and cap refill equal bilaterally; she has pain noted to lateral/posterior hip joint Neuro: COMMON NORMALS: patient oriented x3 and no sensory deficits noted SENSORIUM/ORIENTATION: Yes alert, Yes oriented to person, Yes oriented to place and Yes oriented to time GAIT: Yes Unable to assess gait Skin: COMMON NORMALS: no rashes or lesions noted GENERAL SKIN EXAM: no rashes or lesions noted Course Vital Signs: Vital signs: Vital Signs Temperature 98.8 F 08/31/19 11:15 Pulse Rate 97 08/31/19 11:15 Respiratory Rate 18 08/31/19 11:15 Blood Pressure 118/84 08/31/19 11:15 Pulse Oximetry 96 08/31/19 11:15 MDM - Extremity (Nontraumatic) MDM Narrative: Medical decision making narrative: attempted reduction with Dr. Riggs-unsuccessful; he will speak to Dr. Ventura if available or if not Dr. Caceres and patient will go to OR Imaging Data^: XR L hip/pelvis: Radiologist's impression: [address] [address] XRay Report Signed Patient: Alexander Mckenzie Unit #: [id number] : 1945 Age/Sex: 74 / F ADM Date: 08/31/19 Loc: ER Room/Bed: Attending Dr: Ordering Provider/Ordering MD: Ava Liu Date of Service: 08/31/19 Procedure(s): XR hip LT 2-3V wo/w pel* [id number] Accession Number(s): [id number] Report Number: [id number] WS: [id number] LEFT HIP HISTORY: recent prosthesis; heard a pop ; leg shortened; pain COMPARISON: 08/09/2019 LEFT hip: Acute LEFT hip prosthesis dislocation. Prosthesis is superiorly and posteriorly dislocated with respect to the acetabulum. No fracture. Moderate atherosclerosis. XR/XR hip LT 2-3V wo/w pel* [id number] IMPRESSION: 1. Acute superior and posterior LEFT hip prosthesis dislocation. 2. No fracture. Dictated By: Marisela Chapin DO Signed By: Marisela Chapin DO Signed Date/Time: 08/31/19820 DD/ 9 Discharge Plan Discharge Patient Disposition: Placed in Observation Clinical Impression: Dislocation of hip, left, closed Qualifiers: Encounter type: initial encounter Qualified Code(s): S73.005A - Unspecified dislocation of left hip, initial encounter Condition: Stable Referrals: Florentin Amaro MD [Primary Care Provider] - Mariya Ventura MD [Physician] - 2 weeks (Please call my office for an appointment, , an appointment in 2 to 3 weeks. Maintain strict hip precautions in the meantime.) Discharge Diet: Advance as tolerated and Usual diet Discharge Activity: Use walker/crutches as instructed and As per PT/OT instructions Patient Instructions: Post Anesthesia Care Additional Instructions: POSTERIOR HIP PRECAUTIONS at all times. 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 [employer] Fwd Exam Detailed Documented by User: Evelio Riggs DO 09/01/19 12:25 HPI - Extremity Problem General: Chief complaint: Extremity Problem,Nontraumatic Stated complaint: HIP PAIN Time Seen by Provider: 08/31/19 07:24 [facility] ED PFSH: Medical History Anxiety -anxiolytics PRN COPD (chronic obstructive pulmonary disease) -no acute exacerbation currently -supplemental oxygen as needed, monitor respiratory status -home oxygen evaluation done prior to d/c; qualifies for 2 L, DME arranged Depression -held citalopram due to hyponatremia; can resume on d/c Hip fracture, left Hyponatremia -poor oral intake recently so likely due to dehydration; improving Na with hydration -off IVF; encourage oral hydration -close monitoring of Na levels to avoid over-correction -TSH: wnl Protein calorie malnutrition -BMI-19 kg/m2 -poor appetite; added Ensure to meals Smoker -1/2 PPD -nicotine replacement therapy Surgical History History of bladder suspension procedure History of hysterectomy -secondary to pre-malignant lesions Family History Father Congestive heart failure Mother Dementia Sister Brain aneurysm ruptured Social History Smoking and tobacco status: current every day smoker cigarettes Packs smoked per day: 0.5 Alcohol intake: current Alcohol intake frequency: holidays/special occasions only Alcohol type: beer Household members: significant other Housing: House Marital status: Current occupational status: retired Procedures Orthopedic Joint Reduction Joint #1: Time Out Performed: Yes Side: left Joint Reduction Location: hip Analgesia: procedural sedation Technique used: traction/counter-traction Patient Tolerated Procedure: well Additional Comments: Conscious sedation with etomidate and fentanyl. Patient hip was not able to be reduced nursing staff and PA help track held countertraction on the hip I provided traction with the leg in a flexed position to 90 degrees. Also attempted manipulation manually along with the traction unable to get the prosthesis reduced. Procedural Sedation Indication: fracture/dislocation reduction Preparation: equipment monitor phototypesetting applied, pulse oximeter, supplemental O2 applied, suction/airway equipment at bedside and IV secured Fentanyl: IV Fentanyl dose (mcg): 25 IV Etomidate dose (mg): 10 Complications: hypoventilation Interventions: oxygen applied and airway repositioned Course Vital Signs: Vital signs: Vital Signs Temperature 98.8 F 08/31/19 11:15 Pulse Rate 97 08/31/19 11:15 Respiratory Rate 18 08/31/19 11:15 Blood Pressure 118/84 08/31/19 11:15 Pulse Oximetry 96 08/31/19 11:15 MDM - Extremity (Nontraumatic) MDM Narrative: Medical decision making narrative: Discussed with Dr. Willis after failed attempt at reduction of the hip will go ahead and have her go to the operating room for full general anesthesia and reduction of the dislocation of the hip prosthesis. Discharge Plan Discharge Patient Disposition: Placed in Observation Clinical Impression: Dislocation of hip, left, closed Qualifiers: Encounter type: initial encounter Qualified Code(s): S73.005A - Unspecified dislocation of left hip, initial encounter Condition: Stable Referrals: Florentin Amaro MD [Primary Care Provider] - Mariya Ventura MD [Physician] - 2 weeks (Please call my office for an appointment, , an appointment in 2 to 3 weeks. Maintain strict hip precautions in the meantime.) Discharge Diet: Advance as tolerated and Usual diet Discharge Activity: Use walker/crutches as instructed and As per PT/OT instructions Patient Instructions: Post Anesthesia Care Additional Instructions: POSTERIOR HIP PRECAUTIONS at all times. 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
[2019-08-31] MEDS: fentaNYL 50 mcg/mL INJ 2mL 25 MCG IVP (09:22)
[2019-08-31] MEDS: sodium chloride 0.9% 1,000 ML 30 ML IV (09:30)
--- NOTE | 2019-08-31 09:31 | P.HP_ITS ---
Same Day Surgery H&P Indication for Procedure/HPI DATE OF PROCEDURE: August 31, 2019 CHIEF COMPLAINT/INDICATIONFOR SURGICAL PROCEDURE: Left Hip Dislocation s/p Bipolar Hip Arthroplasty PREOP DIAGNOSIS: DIslocation Left Bipolar Hip Arthroplasty PLANNED PROCEDRUE: Operation Date: 08/31/19 10:00 Proposed Procedures p Closed Reduction Hip(Left) - Mariya Ventura MD Medications/Allergies* Home Medications Medication Instructions Recorded Confirmed Type citalopram 20 mg PO DAILY 07/25/19 08/31/19 History Vitamin D3 1 cap PO DAILY 08/31/19 08/31/19 History aspirin [Aspir-81] 81 mg PO BID 08/31/19 08/31/19 History multivitamin [Multiple Vitamins] 1 tab PO DAILY 08/31/19 08/31/19 History Allergies/Adverse Reactions Allergy/AdvReac Type Severity Reaction Status Date / Time acetaminophen [From Vicodin] Allergy swelling Verified 08/31/19 08:14 hydrocodone [From Vicodin] Allergy swelling Verified 08/31/19 08:14 ibuprofen Allergy swelling Verified 08/31/19 08:14 Pertinent History/Comorbid Conditions* Medical History Anxiety -anxiolytics PRN COPD (chronic obstructive pulmonary disease) -no acute exacerbation currently -supplemental oxygen as needed, monitor respiratory status -home oxygen evaluation done prior to d/c; qualifies for 2 L, DME arranged Depression -held citalopram due to hyponatremia; can resume on d/c Hip fracture, left Hyponatremia -poor oral intake recently so likely due to dehydration; improving Na with hydration -off IVF; encourage oral hydration -close monitoring of Na levels to avoid over-correction -TSH: wnl Protein calorie malnutrition -BMI-19 kg/m2 -poor appetite; added Ensure to meals Smoker -1/2 PPD -nicotine replacement therapy Surgical History (Updated 08/09/19 @ 13:41 by Mariya Ventura MD) History of bladder suspension procedure History of hysterectomy -secondary to pre-malignant lesions Family History (Updated 07/25/19 @ 13:16 by Sirisha Vargas MD) Brain aneurysm Sister ruptured Congestive heart failure Father Dementia Mother Social History Smoking and tobacco status: current every day smoker cigarettes Packs smoked per day: 0.5 Alcohol intake: current Alcohol intake frequency: holidays/special occasions only Alcohol type: beer Household members: significant other Housing: House Marital status: Current occupational status: retired Pertinent Exam Findings alert, oriented x 3, clear to auscultation bilaterally, regular rate & rhythm, operative site marked and procedure specific exam findings (The left leg is shortened and externally rotated. 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
--- NOTE | 2019-08-31 09:33 | ANES.PREANE2 ---
Pre-Anesthetic Assessment Pre-Anesthetic Assessment: Height/Weight: Height 1.7 m Weight 45.359 kg Temp Pulse Resp BP Pulse Ox 97.6 F 102 H 21 H 144/94 97 08/31/19 07:22 08/31/19 09:02 08/31/19 09:02 08/31/19 09:02 08/31/19 09:02 Preop Diagnosis: Left subcapital hip fracture Proposed Procedure: Operation Date: 08/31/19 10:00 Proposed Procedures p Closed Reduction Hip(Left) - Mariya Ventura MD Familial anesthetic complications: none Was Beta Norma taken within 24 hours: Yes Last intake: 1700 on 08/29 NPO > 8 hrs Social: Comment: former smoker Exam: Pre-Anes Outpt Exam: alert, oriented x 3, clear to auscultation bilaterally and regular rate & rhythm Airway: Cervical ROM: WNL MP: 2 Dentition: False Additional comments: upper dentures are in - says they are glued Pulmonary: Pulmonary: COPD (on 2 L NC continuous (but only since her surgery)) CV/HEM: CV/HEM: HTN Anesthetic Plan: ASA status: 3 Anesthesia: General Risk of > 500 ml blood loss (7ml/kg in children): No PFSH Anesthesia PFSH: Medical History Anxiety -anxiolytics PRN COPD (chronic obstructive pulmonary disease) -no acute exacerbation currently -supplemental oxygen as needed, monitor respiratory status -home oxygen evaluation done prior to d/c; qualifies for 2 L, DME arranged Depression -held citalopram due to hyponatremia; can resume on d/c Hip fracture, left Hyponatremia -poor oral intake recently so likely due to dehydration; improving Na with hydration -off IVF; encourage oral hydration -close monitoring of Na levels to avoid over-correction -TSH: wnl Protein calorie malnutrition -BMI-19 kg/m2 -poor appetite; added Ensure to meals Smoker -1/2 PPD -nicotine replacement therapy Surgical History History of bladder suspension procedure History of hysterectomy -secondary to pre-malignant lesions Family History Father Congestive heart failure Mother Dementia Sister Brain aneurysm ruptured Social History Smoking and tobacco status: current every day smoker cigarettes Packs smoked per day: 0.5 Alcohol intake: current Alcohol intake frequency: holidays/special occasions only Alcohol type: beer Household members: significant other Housing: House Marital status: Current occupational status: retired Data Anesthesia Cardiac Studies: No Data to Display
--- NOTE | 2019-08-31 09:48 | PM.OP ---
Operative Report Date of procedure: August 31, 2019 Pre-op Diagnosis: Dislocation Left Bipolar Hip Arthroplasty Post-op diagnosis: same Post-op Findings: Reduced bipolar hip arthroplasty with no evidence of fracture or dislocation Procedure Done: Closed reduction left bipolar hip arthroplasty Specimens removed/disposition: None Pathology: none sent Surgeon: Mariya Ventura Deportation Officer: [facility] OR technicians Anesthesia: General (LMA) Estimated blood loss (mL): 0 IV fluids (mL): 500 Urine output (mL): 5 Complications: None Findings: Dislocated left bipolar hip arthroplasty Condition: stable Disposition: PACU (Then home with family) Brief History: This 74-year-old woman presented today to the emergency department with a posterior hip dislocation following bipolar hip arthroplasty. Her date of index procedure was July 26, 2019. She was discharged to home after her inpatient treatment. She has been doing well both according to her, her , and the physical therapist. Today, she was transferring to a couch, she placed her good foot under her bad foot, and then threw her legs up onto the couch while in a seated position. This appears to be a hyperflexion type of position, and the hip dislocated. Attempted reduction in the emergency department was unsuccessful. Procedure: Patient was brought to the operating theater, and after undergoing adequate general anesthesia per LMA, the patient was transferred to the [place] table. Fluoroscopy was used throughout the surgical procedure. A surgical pause was performed. Direct traction was placed followed by internal rotation and manual manipulation at the hip. Slight adduction was accomplished as well. Under fluoroscopic guidance, we were able to reduce the hip. Reduction of the hip was confirmed in AP and lateral planes. A knee immobilizer was placed. The patient was returned to the recovery room. The patient will be discharged home with her . Physical therapy will reeducate the and the patient to the posterior hip precautions. They will attempt to evaluate what position the patient was in when the hip dislocated. Patient will follow-up in my office in 2 to 3 weeks. Associated Problem List Diagnoses (1) Dislocation of hip, left, closed: Qualifiers: Encounter type: initial encounter Qualified Code(s): S73.005A - Unspecified dislocation of left hip, initial encounter
== END 2019-08-31 11:35 | disposition home or self-care (01) ==
LOC: ER 09:11 → OR 09:13
PROVIDERS: PCP Family Medicine; Visit Provider Specialist
PROC: (CPT 27266; principal; 2019-08-31 10:00)
DX: T84.021A Dislocation of internal left hip prosthesis, initial encounter (principal); Z99.81 Dependence on supplemental oxygen; I10 Essential (primary) hypertension; F41.9 Anxiety disorder, unspecified; J44.9 Chronic obstructive pulmonary disease, unspecified; F32.9 Major depressive disorder, single episode, unspecified; F17.210 Nicotine dependence, cigarettes, uncomplicated
CPT/HCPCS: 27266; 12345; 27265; 73502; 76000; 96375; 99282; J0330; J2704; J3010; J3490; J7030

== ENCOUNTER 2019-09-07 06:48 | Inpatient (IN) | payer MEDICARE, SELFPAY ==
[2019-09-07] VITALS (23 sets, daily range): BP systolic 80–122; BP diastolic 48–87; PULSE 78–120; RESP 16–37; TEMP 36.6–36.8; O2SAT 88–100; BMI 21.9
--- NOTE | 2019-09-07 06:55 | XRR_ITS ---
PROCEDURE INFORMATION: Exam: XR Left Hip Exam date and time: 09/07/2019 7:26 AM Age: 74 years old Clinical indication: Hip pain; Left hip; Prior surgery; Patient HX: PT unable to provide history; Additional info: Pain/previosu dislocation TECHNIQUE: Imaging protocol: XR Left hip Views: Frontal and cross-table lateral views. COMPARISON: OT XR hip LT 2-3V wo/w pel* [id number] 08/31/2019 10:16 AM FINDINGS: Bones/joints: Left bipolar hip prosthesis redemonstrated. Prosthetic head dislocation superiorly and posteriorly. Soft tissues: Unremarkable. Vasculature: Vascular calcifications are present. XR/XR hip LT 2-3V wo/w pel* [id number] IMPRESSION: 1. Left bipolar hip prosthesis. 2. Prosthetic dislocation.
--- NOTE | 2019-09-07 07:16 | ED_ITS ---
HPI - Altered Mental Status General: Chief Complaint: Altered Mental Status Stated Complaint: HIP PAIN Time Seen by Provider: 09/07/19 06:51 History of Present Illness: HPI narrative: 74-year-old female presents to the ER via EMS with complaint of altered mental status her states she was here a week ago believe I seen her at that time she had a dislocation of the hip prosthesis and ultimately required going to the OR with Dr. Willis. They were able to get it reduced but since that time she is complained of pain in her hip she has a moderate amount of dementia so she is a little bit difficult to get history from her presents emergency room with her. He denies any fever sweats or chills nausea vomiting or diarrhea she is not had any respiratory symptoms. MD complaint: altered mental status and confusion Onset (ago): day(s) Severity: moderate Consistency of symptoms: Waxing and Waning Context: history of similar presentation and other (Recent reduction of dislocated hip prosthesis) Associated symptoms: Deny auditory hallucinations, visual hallucinations, homicidal ideation, racing thoughts or suicidal ideation Review of Systems Const: Denies: fever(s), chills, body aches, change in appetite, fatigue or malaise ENMT: Denies: throat pain, ear or mastoid pain, nasal discharge or nasal congestion Card: Denies: chest pain, edema, dyspnea on exertion or orthopnea Resp: Denies: dyspnea, productive cough or non-productive cough GI: Denies: abdominal pain, nausea, vomiting, hematemesis, coffee ground emesis, diarrhea, constipation, bloating, hematochezia or melena : Denies: flank pain, difficulty voiding, dysuria, urinary frequency or urinary urgency Skin/Breast: Denies: rash or pruritus Psych: Denies: visual hallucinations, auditory hallucinations, suicidal ideation or homicidal ideation PFSH ED PFSH: Medical History Anxiety -anxiolytics PRN COPD (chronic obstructive pulmonary disease) Depression Hip fracture, left Hyponatremia Protein calorie malnutrition -BMI-19 kg/m2 -poor appetite; added Ensure to meals Smoker Recently quit Surgical History (Updated 09/08/19 @ 06:34 by Evelio Riggs DO) History of bladder suspension procedure History of hysterectomy -secondary to pre-malignant lesions History of total left hip arthroplasty Family History Father Congestive heart failure Mother Dementia Sister Brain aneurysm ruptured Social History (Updated 09/07/19 @ 10:15 by Geri Flores DO) Smoking and tobacco status: former smoker Quit status (tobacco): has quit using tobacco Year quit tobacco: recently stopped 08/26 Alcohol intake: current Alcohol intake frequency: holidays/special occasions only Alcohol type: beer Household members: significant other Housing: House Marital status: Current occupational status: retired Physical Exam Const: COMMON NORMALS: alert GENERAL APPEARANCE: cooperative, comfortable and well kempt HENMT: COMMON NORMALS: normocephalic and atraumatic HEAD & SCALP: normocephalic and atraumatic Eye: COMMON NORMALS: Equal, round and reactive pupils present, EOMs intact bilaterally, conjunctivae normal and no scleral icterus CONJUNCTIVA: Yes conjunctivae normal PUPIL: Yes Equal, round and reactive pupils present Neck/C-Spine: COMMON NORMALS: full ROM, no lymphadenopathy, supple, no meningeal signs and Thyroid normal THYROID: Thyroid normal and asymmetrical Lymph: LYMPHATIC: no lymphadenopathy noted Resp: COMMON NORMALS: normal respiratory effort, No retractions, No use of accessory muscles and clear to auscultation bilaterally AUSCULTATION: clear to auscultation bilaterally Cardio: COMMON NORMALS: regular rate and regular rhythm RATE: regular rate RHYTHM: regular rhythm HEART SOUNDS: no murmurs GI: COMMON NORMALS: Normal to inspection, nondistended, normoactive bowel sounds present, Soft to palpation and No hepatosplenomegaly present PALPATION: Yes Soft to palpation and Yes No hepatosplenomegaly present : COMMON NORMALS: Yes no CVA tenderness BLADDER/KIDNEY EXAM: Yes no CVA tenderness Back/Pelvis: COMMON NORMALS: no CVA tenderness LUMBAR SPINE/LOWER BACK: Yes normal to inspection Extremity: COMMON NORMALS: no clubbing, cyanosis or edema, no calf tenderness and no pedal edema Neuro: SENSORIUM/ORIENTATION: Yes alert MENINGEAL SIGNS: Yes no meningeal signs Psych: APPEARANCE: Yes well kempt Skin: COMMON NORMALS: no rashes or lesions noted and turgor normal GENERAL SKIN EXAM: no rashes or lesions noted and turgor normal Course Vital Signs: Vital signs: Vital Signs Temperature 97.7 F 09/08/19 00:00 Pulse Rate 143 H 09/08/19 05:00 Respiratory Rate 29 H 09/08/19 05:00 Blood Pressure 120/71 09/08/19 05:00 Pulse Oximetry 94 09/08/19 04:00 MDM - Altered Mental Status MDM Narrative: Medical decision making narrative: Dr. Ojeda was consulted. He came down and seen the patient in the emergency room I assisted him in an attempt to reduce the hip dislocation were unsuccessful. He will plan to take the patient to the operating room to reduce. Discussed Dr. Flores patient will be admitted and treated for her hyponatremia we did confirm it on a second test. She is given moderate amount of normal saline in the emergency room. Dr. Flores will assume care on admission. Lab Data: Labs: Lab Results 09/07/19 09/07/19 09/07/19 Range/Units 07:10 07:10 07:48 WBC 9.7 (4.0-10.0) 10^3/ uL RBC 3.64 L (4.1-5.3) 10^6/u L Hgb 10.3 L (11.5-15.3) g/dL Hct 30.6 L (37.0-47.0) % MCV 84.1 (81-99) fL MCH 28.3 (28.0-34.0) pg MCHC 33.7 (30.0-36.0) g/dL RDW 13.6 (12.1-15.1) % Plt Count 473 H (130-400) 10^3/c mm MPV 9.1 (7.4-10.4) fL Neut % (Auto) 77.3 % Lymph % (Auto) 6.6 % [place] % (Auto) 15.2 % Eos % (Auto) 0.0 % Baso % (Auto) 0.2 % Neut # (Auto) 7.52 (1.8-7.7) 10^3/u L Lymph # (Auto) 0.6 L (0.8-4.8) 10^3/u L [place] # (Auto) 1.5 H (0.2-0.9) 10^3/u L Eos # (Auto) 0.0 (0.0-0.8) 10^3/u L Baso # (Auto) 0.0 (0.0-0.1) 10^3/u L Nucleated RBC % (a uto) 0 % Nucleated RBCs # 0.0 /100WBC Sodium 116 L* (136-145) mmol/L Potassium 4.1 (3.5-5.1) mmol/L Chloride 81 L (98-107) mmol/L Carbon Dioxide 24 (22-29) mmol/L Anion Gap 15.1 (5-19) BUN 10 (8-23) mg/dL Creatinine 0.4 L (0.5-0.9) mg/dL GFR Calculation Not Reportable Glucose 129 H (65-115) mg/dL Calculated Osmolal ity 240 L (285-295) mOsm/k g Calcium 9.1 (8.5-10.5) mg/dL Phosphorus (2.5-4.5) mg/dL Magnesium (1.7-2.3) mg/dL Total Bilirubin 0.4 (0.15-1.2) mg/dL AST 21 (0-32) U/L ALT 12 (0-33) U/L Alkaline Phosphata se 76 (35-105) IU/L Total Protein 6.2 L (6.6-8.7) g/dL Albumin 3.0 L (3.5-5.2) g/dL Globulin 3.2 (1.3-4.6) g/dL TSH (0.27-4.20) uIU/ mL Urine Color Yellow (Yellow) Urine Appearance Cloudy (CLEAR) Urine pH 7.0 (5-7) Ur Specific Gravit y 1.010 (1.005-1.030) Urine Protein Neg (Negative) Urine Glucose (UA) Norm (Normal) Urine Ketones Negative (Negative) Urine Blood 3+ H (Negative) Urine Nitrate Positive H (Negative) Urine Bilirubin Neg (NEGATIVE) Urine Urobilinogen Norm (Negative) mg/dL Ur Leukocyte Shirin ase 2+ H (Negative) Urine RBC 5-10 H (0-2) /hpf Urine WBC 10-15 H (0-5) /hpf Ur Squamous Epith Cells 0-4 H (0-5) Amorphous Sediment Not Reportable Urine Bacteria 4+ H (NONE) Ur Random Sodium mmol/L 09/07/19 09/07/19 09/07/19 Range/Units 08:59 08:59 11:30 WBC (4.0-10.0) 10^3/ uL RBC (4.1-5.3) 10^6/u L Hgb (11.5-15.3) g/dL Hct (37.0-47.0) % MCV (81-99) fL MCH (28.0-34.0) pg MCHC (30.0-36.0) g/dL RDW (12.1-15.1) % Plt Count (130-400) 10^3/c mm MPV (7.4-10.4) fL Neut % (Auto) % Lymph % (Auto) % [place] % (Auto) % Eos % (Auto) % Baso % (Auto) % Neut # (Auto) (1.8-7.7) 10^3/u L Lymph # (Auto) (0.8-4.8) 10^3/u L [place] # (Auto) (0.2-0.9) 10^3/u L Eos # (Auto) (0.0-0.8) 10^3/u L Baso # (Auto) (0.0-0.1) 10^3/u L Nucleated RBC % (a uto) % Nucleated RBCs # /100WBC Sodium 117 L* (136-145) mmol/L Potassium 4.0 (3.5-5.1) mmol/L Chloride 83 L (98-107) mmol/L Carbon Dioxide 24 (22-29) mmol/L Anion Gap 14.0 (5-19) BUN 11 (8-23) mg/dL Creatinine 0.4 L (0.5-0.9) mg/dL GFR Calculation Not Reportable Glucose 106 (65-115) mg/dL Calculated Osmolal ity 240 L (285-295) mOsm/k g Calcium 7.8 L (8.5-10.5) mg/dL Phosphorus 3.7 (2.5-4.5) mg/dL Magnesium 1.5 L (1.7-2.3) mg/dL Total Bilirubin (0.15-1.2) mg/dL AST (0-32) U/L ALT (0-33) U/L Alkaline Phosphata se (35-105) IU/L Total Protein (6.6-8.7) g/dL Albumin (3.5-5.2) g/dL Globulin (1.3-4.6) g/dL TSH 3.58 (0.27-4.20) uIU/ mL Urine Color (Yellow) Urine Appearance (CLEAR) Urine pH (5-7) Ur Specific Gravit y (1.005-1.030) Urine Protein (Negative) Urine Glucose (UA) (Normal) Urine Ketones (Negative) Urine Blood (Negative) Urine Nitrate (Negative) Urine Bilirubin (NEGATIVE) Urine Urobilinogen (Negative) mg/dL Ur Leukocyte Shirin ase (Negative) Urine RBC (0-2) /hpf Urine WBC (0-5) /hpf Ur Squamous Epith Cells (0-5) Amorphous Sediment Urine Bacteria (NONE) Ur Random Sodium 54 mmol/L Discharge Plan Discharge Patient Disposition: Admitted As Inpatient Admit Provider: Geri Flores Clinical Impression: Dislocation of hip, left, closed, History of total left hip arthroplasty, COPD (chronic obstructive pulmonary disease), Hyponatremia Condition: Stable Referrals: Florentin Amaro MD [Primary Care Provider] - Interventions: ED Discharge Assessment Last Done: 09/07/19 10:00 ED Charges Last Done: 09/07/19 07:54 Discharge Date/Time: 09/07/19 10:17 Coding Level of Care Code ED Assessment Director for Chg Fwd Exam Comprehensive
[2019-09-07 07:39] LABS: Basophils % 0.2 %; Hematocrit 30.6 % (37.0-47.0); Hemoglobin 10.3 g/dL (11.5-15.3); Lymphocytes # 0.6 10^3/uL (0.8-4.8); Lymphocytes % 6.6 %; Mean Corpuscular HGB Conc 33.7 g/dL (30.0-36.0); Mean Corpuscular Hemoglobin 28.3 pg (28.0-34.0); Mean Corpuscular Volume 84.1 fL (81-99); Mean Platelet Volume 9.1 fL (7.4-10.4); Monocytes # 1.5 10^3/uL (0.2-0.9); Monocytes % 15.2 %; Neutrophils # 7.52 10^3/uL (1.8-7.7); Neutrophils % 77.3 %; Nucleated Red Blood Cells % 0 %; Platelet Count 473 10^3/cmm (130-400); Red Blood Count 3.64 10^6/uL (4.1-5.3); Red Cell Distribution Width 13.6 % (12.1-15.1); White Blood Count 9.7 10^3/uL (4.0-10.0)
[2019-09-07 07:57] LABS: Alanine Aminotransferase 12 U/L (0-33); Alkaline Phosphatase 76 IU/L (35-105); Anion Gap 15.1 (5-19); Aspartate Amino Transferase 21 U/L (0-32); Blood Urea Nitrogen 10 mg/dL (8-23); Calcium 9.1 mg/dL (8.5-10.5); Carbon Dioxide 24 mmol/L (22-29); Chloride 81 mmol/L (98-107); Creatinine Clr Calc Pharmacy 59.8169; Globulin 3.2 g/dL (1.3-4.6); Glucose 129 mg/dL (65-115); Osmolality Calculated 240 mOsm/kg (285-295); Potassium 4.1 mmol/L (3.5-5.1); Total Bilirubin 0.4 mg/dL (0.15-1.2); Total Protein 6.2 g/dL (6.6-8.7)
[2019-09-07 08:01] LABS: Urine Appearance Cloudy (CLEAR); Urine Color Yellow (Yellow)
[2019-09-07 08:02] LABS: Protein Urine Neg (Negative)
[2019-09-07 08:03] LABS: Add Urine Microscopic? YES; Bilirubin Urine Neg (NEGATIVE); Blood Urine 3+ (Negative); Glucose Urine UA Norm (Normal); Ketones Urine Negative (Negative); Leukocyte Esterase Urine 2+ (Negative); Nitrate Urine Positive (Negative); Urobilinogen Urine Norm (Negative)
[2019-09-07 08:04] LABS: Sodium 116 mmol/L (136-145)
[2019-09-07 08:13] LABS: Add Urine Culture? Yes; Bacteria Urine 4+; Squamous Epithelial Cell Urine 0-4 (0-5)
[2019-09-07] MEDS: sodium chloride 0.9% 500 ML 999 ML IV (08:34)
--- NOTE | 2019-09-07 09:16 | PM.CONSULT ---
Providers/Reason For Consult Consulting Physican/Specialty*: Sahil Ojeda MD Reason for Consult*: Dislocated left bipolar arthroplasty Primary Care Provider: Florentin Amaro MD History of Present Illness History of Present Illness Alexander Mckenzie is a 74 year old female who sustained a left femoral neck fracture on 07/25/2019 when she fell in her living room. She is admitted to the hospital and taken to the operating room on 07/26/2019 where she underwent a bipolar arthroplasty by Mariya Ventura. The patient sustained a dislocation of her left hip on 08/31/2019 during the course of transferring from the couch. An attempted close reduction in the ER was unsuccessful and the patient was taken to the operating room for close reduction performed by Dr. Ventura. Postoperative she was placed in a knee immobilizer and discharged home. Her states she is generally been in bed but there was no obvious malalignment or shortening of the left lower extremity. Apparently this morning he had more hip pain with her noticing shortening and internal rotation of the hip. She is taken to the [facility] emergency room where radiographs again revealed a dislocation of the left hip orthopedics is asked to see the patient for dislocated bipolar arthroplasty Meds/Allergies Home Medications and Allergies Home Medications Medication Instructions Recorded Confirmed Last Taken Type lorazepam 0.5 mg tablet 0.5 mg PO BID PRN 30 Days #60 tab 04/27/19 09/07/19 09/07/19 Rx citalopram 20 mg PO DAILY 07/25/19 09/07/19 09/06/19 History metoprolol tartrate 25 mg tablet 12.5 mg PO BID 30 Days #30 tab 08/29/19 09/07/19 09/07/19 Rx Vitamin D3 1 cap PO DAILY 08/31/19 09/07/19 09/07/19 History aspirin [Aspir-81] 81 mg PO DAILY 08/31/19 09/07/19 09/06/19 History multivitamin [Multiple Vitamins] 1 tab PO DAILY 08/31/19 09/07/19 09/06/19 History oxycodone-acetaminophen 1 tab PO Q4H PRN #30 tab 08/31/19 09/07/19 09/07/19 Rx Allergies Allergy/AdvReac Type Severity Reaction Status Date / Time acetaminophen [From Vicodin] Allergy swelling Verified 08/31/19 08:14 hydrocodone [From Vicodin] Allergy swelling Verified 08/31/19 08:14 ibuprofen Allergy swelling Verified 08/31/19 08:14 PFSH Acute PFSH: Medical History Anxiety -anxiolytics PRN COPD (chronic obstructive pulmonary disease) -no acute exacerbation currently -supplemental oxygen as needed, monitor respiratory status -home oxygen evaluation done prior to d/c; qualifies for 2 L, DME arranged Depression -held citalopram due to hyponatremia; can resume on d/c Hip fracture, left Hyponatremia -poor oral intake recently so likely due to dehydration; improving Na with hydration -off IVF; encourage oral hydration -close monitoring of Na levels to avoid over-correction -TSH: wnl Protein calorie malnutrition -BMI-19 kg/m2 -poor appetite; added Ensure to meals Smoker -1/2 PPD -nicotine replacement therapy Surgical History History of bladder suspension procedure History of hysterectomy -secondary to pre-malignant lesions Family History Father Congestive heart failure Mother Dementia Sister Brain aneurysm ruptured Social History Smoking and tobacco status: current every day smoker cigarettes Packs smoked per day: 0.5 Alcohol intake: current Alcohol intake frequency: holidays/special occasions only Alcohol type: beer Household members: significant other Housing: House Marital status: Current occupational status: retired Vitals/I&O/Wt Last Vital Signs Temp 98.3 F 09/07/19 06:49 Pulse 78 09/07/19 09:00 Resp 20 H 09/07/19 09:00 BP 108/73 09/07/19 09:00 Pulse Ox 99 09/07/19 09:00 Weight last 48 hrs Weight 140 lb Physical Exam Narrative: EXAM NARRATIVE: On examination the patient she is supine in bed she alert and oriented. He answers questions appropriately. There is clear shortening and internal rotation of the left hip. He has a palpable left dorsalis pedis pulse. She will flex and extend her left toes. Her sensation is intact to light touch Data Micro: Micro: Microbiology 09/07/19 08:14 Blood Culture - Pr eliminary Blood SPECIMEN [facility] A&P Assessment and plan (1) Dislocation of hip, left, closed: Patient has had her second dislocation of her left bipolar arthroplasty 6 weeks out after a bipolar arthroplasty. It sounds by history that must of dislocated last night. I certainly think it needs to be reduced. I am wondering if she not disrupt her soft tissue repair with her dislocation last week. I suspect that this will need revision surgery with re-repair of her posterior capsule. We will attempt a closed reduction in the emergency room. I discussed this with the family. They of course are familiar with this and the possibility that may not be successful and may need a trip to the operating room. I discussed risk of inadvertent fracture urine I certainly told her that in my opinion this hip will need revision to maintain stability. They understand the need for further procedures. They agree to proceed. Status: Acute Qualifiers: Encounter type: initial encounter Qualified Code(s): S73.005A - Unspecified dislocation of left hip, initial encounter Coding Level of Care Code Acute Application Engineer for [facility] Diagnoses Dislocation of hip, left, closed S73.005A Encounter type: initial encounter
[2019-09-07 09:25] LABS: Blood Urea Nitrogen 11 mg/dL (8-23); Calcium 7.8 mg/dL (8.5-10.5); Carbon Dioxide 24 mmol/L (22-29); Chloride 83 mmol/L (98-107); Creatinine Clr Calc Pharmacy 59.8169; Glucose 106 mg/dL (65-115); Osmolality Calculated 240 mOsm/kg (285-295)
[2019-09-07] MEDS: cefTRIAXone 1,000 MG in sodium chloride 0.9% (plus) 50 ML 100 MG IV (09:36)
[2019-09-07 09:39] LABS: Sodium 117 mmol/L (136-145)
--- NOTE | 2019-09-07 10:02 | P.HP_ITS ---
Providers/Chief Complaint Admitting Physician: Geri Flores DO Primary Care Provider: Florentin Amaro MD Chief Complaint: HIP PAIN History of Present Illness Alexander Mckenzie is a 74 year old female that presented to the emergency department today for left hip pain. Patient had recent fall resulting in hip fracture requiring surgical repair back in July. She was discharged home with home health at that time. She was brought to the ER last week for left hip dislocation after bending over to pick something up. She had this fixed by orthopedic surgeon, Dr. Ventura. reports that since her discharge last Tuesday he took the patient home she was able to ambulate across the home with her walker and has been laying on the sofa since that time. Unable to ambulate, decreased appetite and decreased oral intake. Has been drinking boost shakes but has not had any solid foods. Patient was seen and evaluated in the emergency department noted to have dislocation of the left hip again also noted to have acute on chronic hyponatremia with concern for urinary tract infection. Patient denies any recent illness, no fevers or chills, denies dysuria or hematuria. Patient was seen and evaluated in the emergency department and orthopedic surgeon, Dr. Ojeda was consulted due to patient's dislocated left hip Review of Systems Const: Denies: fever(s) or chills Eyes: Denies: change in vision ENMT: Denies: nasal congestion Card: Denies: chest pain, palpitations or edema Resp: Denies: dyspnea, productive cough or hemoptysis GI: Denies: abdominal pain, nausea, vomiting, diarrhea, constipation, hematochezia or melena : Denies: dysuria or hematuria Musc: Reports: extremity pain (Left hip pain); Denies: muscle cramps Skin/Breast: Denies: rash or new lesions Neuro: Denies: headache(s) or dizziness Psych: Denies: anxiety or depression Endo: Denies: polyuria or hot flashes Perez/Lymph: Denies: easy bruising or easy bleeding Medications/Allergies Home Medications Medication Instructions Recorded Confirmed Last Taken Type lorazepam 0.5 mg tablet 0.5 mg PO BID PRN 30 Days #60 tab 04/27/19 09/07/19 09/07/19 Rx citalopram 20 mg PO DAILY 07/25/19 09/07/19 09/06/19 History metoprolol tartrate 25 mg tablet 12.5 mg PO BID 30 Days #30 tab 08/29/19 09/07/19 09/07/19 Rx Vitamin D3 1 cap PO DAILY 08/31/19 09/07/19 09/07/19 History aspirin [Aspir-81] 81 mg PO DAILY 08/31/19 09/07/19 09/06/19 History multivitamin [Multiple Vitamins] 1 tab PO DAILY 08/31/19 09/07/19 09/06/19 History oxycodone-acetaminophen 1 tab PO Q4H PRN #30 tab 08/31/19 09/07/19 09/07/19 Rx Allergies Allergy/AdvReac Type Severity Reaction Status Date / Time acetaminophen [From Vicodin] Allergy swelling Verified 08/31/19 08:14 hydrocodone [From Vicodin] Allergy swelling Verified 08/31/19 08:14 ibuprofen Allergy swelling Verified 08/31/19 08:14 PFSH Acute PFSH: Medical History Anxiety -anxiolytics PRN COPD (chronic obstructive pulmonary disease) Depression Hip fracture, left Hyponatremia Protein calorie malnutrition -BMI-19 kg/m2 -poor appetite; added Ensure to meals Smoker Recently quit Surgical History History of bladder suspension procedure History of hysterectomy -secondary to pre-malignant lesions History of total left hip arthroplasty Family History Father Congestive heart failure Mother Dementia Sister Brain aneurysm ruptured Social History (Updated 09/07/19 @ 10:15 by Geri Flores DO) Smoking and tobacco status: former smoker Quit status (tobacco): has quit using tobacco Year quit tobacco: recently stopped 08/26 Alcohol intake: current Alcohol intake frequency: holidays/special occasions only Alcohol type: beer Household members: significant other Housing: House Marital status: Current occupational status: retired Vitals/I&O/Wt Last Vital Signs Temp 98.3 F 09/07/19 06:49 Pulse 78 09/07/19 09:00 Resp 20 H 09/07/19 09:00 BP 108/73 09/07/19 09:00 Pulse Ox 99 09/07/19 09:00 09/06/19 09/07/19 09/07/19 22:59 06:59 14:59 Intake Total 500 / 500 Balance 500 / 500 Weight last 48 hrs Weight 63.503 kg Physical Exam Const: COMMON NORMALS: patient oriented x3 and alert GENERAL APPEARANCE: cooperative and frail appearing NUTRITIONAL APPEARANCE: thin ORIENTATION/CONSCIOUSNESS: Yes awake, Yes oriented to person, Yes oriented to place and Yes oriented to time HENMT: COMMON NORMALS: normocephalic and atraumatic HEAD & SCALP: normocephalic and atraumatic Eye: COMMON NORMALS: Equal, round and reactive pupils present PUPIL: Yes Equal, round and reactive pupils present Neck/C-Spine: COMMON NORMALS: supple GENERAL: Yes normal visual inspection Resp: COMMON NORMALS: normal respiratory effort and clear to auscultation bilaterally EFFORT & INSPECTION: Yes able to speak in complete sentences AUSCULTATION: clear to auscultation bilaterally, no rhonchi and no wheezes Cardio: COMMON NORMALS: regular rate, regular rhythm and No murmurs present (Cardio) RATE: regular rate RHYTHM: regular rhythm GI: COMMON NORMALS: Soft to palpation and non-tender INSPECTION: No abdominal distension AUSCULTATION: Yes normoactive bowel sounds PALPATION: Yes Soft to palpation Extremity: COMMON NORMALS: no clubbing, cyanosis or edema and no calf tenderness NARRATIVE EXTREMITY EXAM: shortening of the L leg with dislocation of the L hip Neuro: COMMON NORMALS: patient oriented x3, CN's II-XII intact bilaterally, moves all extremities and no focal motor deficits SENSORIUM/ORIENTATION: Yes alert, Yes oriented to person, Yes oriented to place and Yes oriented to time SPEECH: speech normal Psych: COMMON NORMALS: mental status grossly normal and cooperative Skin: COMMON NORMALS: no rashes or lesions noted GENERAL SKIN EXAM: no rashes or lesions noted Data : 09/07/19 07:10 09/07/19 08:59 Micro: Microbiology 09/07/19 07:10 Blood Culture - Preliminary Blood SPECIMEN COLLECTED 09/07/19 09:17 Blood Culture - Preliminary Blood SPECIMEN COLLECTED A&P Assessment and plan (1) Dislocation of hip, left, closed: Patient has recurrent dislocation of the left hip Orthopedic surgeon, Dr. Ojeda consulted, appreciate recommendations and assista nce in patient's care Patient to go to the OR today as could not be reduced in the emergency departm ent Patient was admitted in July for fall resulting in hip fracture and total hip arthroplasty on the left. Had dislocation last week which was reduced in the emergency department and patient was discharged to home. Patient had been nonambulatory at home since that time until presenting back to the ER today. Discussed with case management but patient will likely require longterm facility placement Status: Acute Qualifiers: Encounter type: initial encounter Qualified Code(s): S73.005A - Unspecified dislocation of left hip, initial encounter (2) Hyponatremia: Acute on chronic hyponatremia. Sodium of 116 today, baseline appears to be in the low to mid 120s. Appears to be improved with IV fluids in the past, will continue with IV fluids at this time as patient appears to be dehydrated with decreased oral intake. Patient also on SSRI, will titrate off Status: Acute (3) Depression: Recommend titrating off of SSRI due to above Status: Acute Qualifiers: Active/Remission status: remission status unspecified Depression Type: major depressive disorder Major depression recurrence: unspecified whether recurrent Qualified Code(s): F32.9 - Major depressive disorder, single episode, unspecified (4) COPD (chronic obstructive pulmonary disease): Without acute exacerbation. Patient reports recently stopping smoking Is on 2 L of oxygen by nasal cannula at baseline Status: Acute Qualifiers: COPD type: emphysema Emphysema type: unspecified Qualified Code(s): J43.9 - Emphysema, unspecified Additional A&P Information Acute cystitis: Continue on Rocephin, urine culture ordered and pending Protein calorie malnutrition: Continue with Ensure supplementation DVT prophylaxis: Lovenox Diet: N.p.o. for anticipated surgery for relocation of left hip dislocation CODE STATUS: Full code Attestations Medical Necessity Statement*: Patient requires hospitalization due to acute hyponatremia with cystitis, recurrent hip dislocation. Expected stay greater than 2 midnights Coding Level of Care Code Acute Artist Color Separation for [facility] Fwd Exam Comprehensive Diagnoses Dislocation of hip, left, closed S73.005A Encounter type: initial encounter Hyponatremia E87.1 Depression F32.9 Active/Remission status: remission status unspecified Depression Type: major depressive disorder Major depression recurrence: unspecified whether recurrent COPD (chronic obstructive pulmonary disease) J43.9 COPD type: emphysema Emphysema type: unspecified
[2019-09-07] MEDS: sodium chloride 0.9% 1,000 ML 75 ML IV (11:31)
[2019-09-07 11:40] LABS: Magnesium 1.5 mg/dL (1.7-2.3); Phosphorus 3.7 mg/dL (2.5-4.5); Thyroid Stimulating Hormone 3.58 uIU/mL (0.27-4.20)
[2019-09-07] MEDS: enoxaparin 40 mg/0.4 mL Syringe SUBCUT (12:10)
[2019-09-07 12:26] LABS: Urine Random Sodium 54 mmol/L
--- NOTE | 2019-09-07 13:26 | PC.RESP ---
Pulmonary Rehab information sent to patient.
[2019-09-07] MEDS: metoprolol tartrate 25 mg Tablet 12.5 MG PO ×2 (13:30→17:42)
--- NOTE | 2019-09-07 13:35 | PC.NURSE ---
PHYSICIAN NOTIFIED DUE TO PT BLOOD PRESSURE DROPPING TO 84/52 AND HEART RATE REACHING 130'S WHILE PT IS LYING IN BED AND SOUNDING IRREGULAR. DR ROSALES ORDERED ORAL METOPROLOL 12.5MG TO BE GIVEN WITH BOLUS OF 500 NS, AND EKG STAT.
--- NOTE | 2019-09-07 13:43 | PC.NURSE ---
PT HAS A 14MG NICOTINE PATCH FOUND ON [facility] FLOOR BY [facility] FROM [facility]. WILL NOTIFY DR ROSALES.
--- NOTE | 2019-09-07 15:22 | ECG_ITS ---
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 Measurements Intervals [place] Rate: 105 P: [place]: -1 QRS: 75 QRSD: 103 T: 69 QT: 349 QTc: 462 Interpretive Statements SINUS TACHYCARDIA WITH PAC'S INCOMPLETE RIGHT BUNDLE BRANCH BLOCK Compared to ECG 07/25/2019 13:28:31 Incomplete right bundle-branch block now present Sinus rhythm no longer present ST (T wave) deviation no longer present Electronically Signed On 09-07-2019 17:27:42 CDT by Mitra Aguilera M.D. [id number] f
--- NOTE | 2019-09-07 15:23 | USCV_ITS ---
Alexander Mckenzie Age: 74 Gender: F : 1945 Exam Date: 09/07/2019 15:31 Ordering Phys: Geri Flores DO Technologist: Jacoby Leslie Exam Location: [facility] Indication: afib BP: 154 / 74 HR: 87 Rhythm: Sinus Technical Quality: Adequate MEASUREMENTS (Male / Female) Normal Values 2D ECHO LV Diastolic Diameter PLAX 2.9 cm 4.2 - 5.9 / 3.9 - 5.3 cm LV Systolic Diameter PLAX 2.4 cm IVS Diastolic Thickness 0.8 cm 0.6 - 1.0 / 0.6 - 0.9 cm IVS Systolic Thickness 1.2 cm LVPW Diastolic Thickness 0.8 cm 0.6 - 1.0 / 0.6 - 0.9 cm LVPW Systolic Thickness 1.1 cm LVOT Diameter 2.0 cm LV Ejection Fraction 2D Teich 33.8 % LV Ejection Fraction MOD 2C 50.5 % LV Ejection Fraction 2C AL 50.9 % LA Diameter 3.4 cm LA Width 2.6 cm LA Height 4.3 cm RA Width 3.3 cm RA Height 3.3 cm Aorta at Sinotubular Diameter 2.7 cm M-MODE LV Diastolic Diameter MM 3.5 cm 4.2 - 5.9 / 3.9 - 5.3 cm LV Systolic Diameter MM 2.3 cm LV Ejection Fraction MM Teich 63.0 % IVS Diastolic Thickness MM 0.8 cm 0.6 - 1.0 / 0.6 - 0.9 cm IVS Systolic Thickness MM 1.3 cm LVPW Diastolic Thickness MM 1.0 cm 0.6 - 1.0 / 0.6 - 0.9 cm LVPW Systolic Thickness MM 1.4 cm RV Diastolic Diameter MM 0.9 cm Aortic Annulus Diameter 3.0 cm LA Ao Ratio MM 1.1 MV E Point Septal Separation 1.1 cm DOPPLER AV Peak Velocity 100.0 cm/s LVOT Peak Velocity 97.0 cm/s AV Area Cont Eq vti 3.9 cm squared AV Area Cont Eq pk 3.1 cm squared MV Area PHT 5.1 cm squared Mitral E to A Ratio 0.9 MV E' Velocity 9.0 cm/s Mitral E to MV E' Ratio 5.5 Mitral E to LV E' Lateral Ratio 6.6 Mitral E to LV E' Septal Ratio 4.7 TR Peak Velocity 110.0 cm/s TR Peak Gradient 4.9 mmHg PV Peak Velocity 85.0 cm/s FINDINGS Left Ventricle LV size with a mild diffuse hypokinesia. Ejection fraction around 50%. He is found to be in atrial fibrillation during the study. Segmental wall motion analysis difficult.mild left ventricular hypertrophy. Right Ventricle Possibly of normal size and ejection fraction. Right Atrium Possibly of normal size Left Atrium Possibly of normal size Mitral Valve Thickened mitral valve.moderate mitral annular calcification. Aortic Valve Thickened aortic valve. Heavy calcification in the noncoronary cusp.trace to mild aortic valve regurgitation. Tricuspid Valve Could not be visualized well Pulmonic Valve Could not be visualized well Pericardium No pericardial effusion. Aorta Normal aortic annulus size. CONCLUSIONS LV size with a mild diffuse hypokinesia. Ejection fraction around 50%. Pt is found to be in atrial fibrillation during the study. Segmental wall motion analysis difficult. Mild left ventricular hypertrophy. Thickened aortic valve. Heavy calcification in the noncoronary cusp.trace to mild aortic valve regurgitation. Thickened mitral valve.moderate mitral annular calcification. There is no pericardial effusion. There are no intracardiac masses. No previous study is available for comparison. Dr Roxana Franco MD [facility] (Electronically Signed) Final Date: 07 September 2019 21:03 S
[2019-09-07 16:43] LABS: Sodium 117 mmol/L (136-145)
[2019-09-07 17:00] LABS: Troponin(5th) Baseline 25 ng/L (0-10)
--- NOTE | 2019-09-07 17:23 | ECG_ITS ---
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 Measurements Intervals [place] Rate: 101 P: [place]: -1 QRS: 82 QRSD: 86 T: 77 QT: 357 QTc: 463 Interpretive Statements SINUS TACHYCARDIA WITH PAC's AND PVC's INCOMPLETE RIGHT BUNDLE BRANCH BLOCK Compared to ECG 09/07/2019 13:44:42 ATRIAL FIBRILLATION NO LONGER PRESENT Electronically Signed On 09-07-2019 17:25:58 CDT by Mitra Aguilera M.D. [id number] f
[2019-09-07] MEDS: magnesium sulfate premix 2 GM/50 ML PIGGYBACK IV (17:25)
--- NOTE | 2019-09-07 17:35 | PC.PT ---
PT evaluation on hold awaiting surgical repair, and orders from orthopedist.
[2019-09-07] MEDS: oxyCODONE-APAP 5-325 mg Tablet 1 TAB PO (17:41)
[2019-09-07 17:44] LABS: Troponin 5 2HR 25.76 ng/L (0-10); Troponin 5 2HR Delta 0.76 ABS# (0-10)
[2019-09-07 19:34] LABS: Sodium 118 mmol/L (136-145)
[2019-09-07 21:42] LABS: Troponin 5 6HR 28.04 ng/L (0-10); Troponin 5 6HR Delta 3.04 ng/L (0-12)
[2019-09-07 23:28] LABS: Sodium 119 mmol/L (136-145)
[2019-09-08] VITALS (16 sets, daily range): BP systolic 89–123; BP diastolic 48–73; PULSE 76–143; RESP 19–32; TEMP 36.5–37.1; O2SAT 91–98
[2019-09-08] MEDS: sodium chloride 0.9% 1,000 ML 100 ML IV (01:11)
--- NOTE | 2019-09-08 03:32 | PC.NURSE ---
Increased Heart Rate Patient heart rate currently sustaining 130 with intermittent increases up to 160s. Patient is resting with eyes closed and responds appropriately to verbal commands. Informed Dr Ng of increase in heart rate and received telephone order for Cardizem 10mg IVP once now.
--- NOTE | 2019-09-08 03:59 | ECG_ITS ---
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 Measurements Intervals [place] Rate: 117 P: [place]: -1 QRS: 87 QRSD: 89 T: 71 QT: 312 QTc: 436 Interpretive Statements ATRIAL FLUTTER/TACHYCARDIA WITH RAPID VENTRICULAR RESPONSE POSSIBLE RIGHT VENTRICULAR CONDUCTION DELAY [RSR (QR) IN V1/V2] ABNORMAL RHYTHM ECG Compared to ECG 09/07/2019 17:15:57 Sinus tachycardia no longer present Incomplete right bundle-branch block no longer present Electronically Signed On 09-08-2019 20:36:28 CDT by Roxana Franco M.D. [email or web address] [id number]
[2019-09-08] MEDS: sodium chloride 0.9% 500 ML 999 ML IV (04:12)
--- NOTE | 2019-09-08 04:48 | PC.NURSE ---
Heart rate post Cardizem admin Patient heart decreased to 100s to low 120s after Cardizem. Patient denies any palpitations, dizziness or pain. No distress observed. 500ml NS bolus given as ordered.
[2019-09-08 05:04] LABS: Basophils % 0.1 %; Eosinophils % 0.1 %; Hematocrit 28.3 % (37.0-47.0); Hemoglobin 9.3 g/dL (11.5-15.3); Lymphocytes # 0.6 10^3/uL (0.8-4.8); Lymphocytes % 6.8 %; Mean Corpuscular HGB Conc 32.9 g/dL (30.0-36.0); Mean Corpuscular Hemoglobin 28.9 pg (28.0-34.0); Mean Corpuscular Volume 87.9 fL (81-99); Mean Platelet Volume 8.8 fL (7.4-10.4); Monocytes # 1.4 10^3/uL (0.2-0.9); Monocytes % 15.8 %; Neutrophils % 76.2 %; Nucleated Red Blood Cells % 0 %; Platelet Count 383 10^3/cmm (130-400); Red Blood Count 3.22 10^6/uL (4.1-5.3); Red Cell Distribution Width 13.9 % (12.1-15.1); White Blood Count 8.8 10^3/uL (4.0-10.0)
[2019-09-08 05:22] LABS: Alanine Aminotransferase 12 U/L (0-33); Albumin Level 2.7 g/dL (3.5-5.2); Alkaline Phosphatase 68 IU/L (35-105); Anion Gap 13.4 (5-19); Aspartate Amino Transferase 19 U/L (0-32); Blood Urea Nitrogen 7 mg/dL (8-23); Calcium 8.1 mg/dL (8.5-10.5); Carbon Dioxide 21 mmol/L (22-29); Chloride 93 mmol/L (98-107); Globulin 3.1 g/dL (1.3-4.6); Glucose 96 mg/dL (65-115); Osmolality Calculated 254 mOsm/kg (285-295); Potassium 3.4 mmol/L (3.5-5.1); Sodium 124 mmol/L (136-145); Total Bilirubin 0.3 mg/dL (0.15-1.2); Total Protein 5.8 g/dL (6.6-8.7)
--- NOTE | 2019-09-08 07:17 | PC.OT ---
OT note: Will await OT eval until post surgery for hip dislocation per chart review.
[2019-09-08] MEDS: aspirin 81 mg EC Tablet PO (08:33)
[2019-09-08] MEDS: multivitamin therapeutic Tablet 1 TAB PO (08:33)
[2019-09-08] MEDS: oxyCODONE-APAP 5-325 mg Tablet 1 TAB PO ×3 (08:34→20:45)
[2019-09-08] MEDS: metoprolol tartrate 25 mg Tablet 12.5 MG PO ×2 (08:34→10:22)
[2019-09-08] MEDS: cefTRIAXone 1,000 MG in sodium chloride 0.9% (plus) 50 ML 100 MG IV (08:36)
--- NOTE | 2019-09-08 09:36 | PC.NURSE ---
Reported to Dr. Sullivan that patient has already received 12.5 mg metoprolol this morning before the order was increased to 25mg. Order received to give 12.5 mg more of the metoprolol and start the new order with the evening dose.
--- NOTE | 2019-09-08 09:44 | P.ANESASSM_ITS ---
Pre-Anesthetic Assessment Pre-Anesthetic Assessment: Height/Weight: Height 1.7 m Weight 45.042 kg Temp Pulse Resp BP Pulse Ox 97.7 F 143 H 26 H 120/71 95 09/08/19 00:00 09/08/19 05:00 09/08/19 08:34 09/08/19 05:00 09/08/19 08:34 Preop Diagnosis: Dislocation Left Bipolar Hip Arthroplasty Proposed Procedure: Operation Date: 09/09/19 08:00 Proposed Procedures p Closed Reduction Hip(Left) - Sahil Ojeda MD Social: Social History: Alcohol (occ) and Tobacco (quit 08/26) Exam: Pre-Anes Outpt Exam: alert, oriented x 3, clear to auscultation bilaterally and regular rate & rhythm Airway: Submandibular: WNL Cervical ROM: WNL MP: 2 Dentition: False (upper and lower) History/ROS: No significant history except as noted Pulmonary: Pulmonary: COPD and FISCHER CV/HEM: CV/HEM: HTN : : None reported Hepatic: Hepatic: None reported GI: GI: None reported Metabolic: Metabolic: None reported Musc/skel: Musc/skel: OA/DJD Neuropsych: Neuropsych: Anxiety Anesthetic Plan: ASA status: 3 Anesthesia: Anesthesia Evaluation and General Risk of > 500 ml blood loss (7ml/kg in children): No Meds/Allergies Current Medications: Current Medications Generic Name Dose Route Start Last Admin Trade Name Freq PRN Reason Stop Dose Admin Aspirin 81 mg 09/08/19 09:00 09/08/19 08:33 Aspirin Ec PO 81 mg DAILY CECY Administration Docusate Sodium 100 mg 09/07/19 18:00 09/07/19 17:35 Colace PO Not Given BID CECY Enoxaparin Sodium 40 mg 09/07/19 10:49 09/07/19 12:10 Lovenox SUBCUT 40 mg Q24H CECY Administration Sodium Chloride 1,000 mls @ 75 ml s/hr 09/07/19 09:45 09/08/19 01:12 Sodium Chloride 0.9% IV Infused .[id number] CECY Infusion Ceftriaxone Sodium 1,000 mg/ 50 mls @ 100 mls/ hr 09/08/19 09:00 09/08/19 08:36 Sodium Chloride IV 100 mls/hr Q24H CECY Administration Protocol Multivitamins Ther apeutic 1 tab 09/08/19 09:00 09/08/19 08:33 Multivitamin Tab PO 1 tab DAILY CECY Administration Oxycodone/Acetamin ophen 1 tab 09/07/19 10:49 09/08/19 08:34 Percocet 5-325 M g PO 1 tab Q4H PRN Administration moderate to sever e pain PFSH Anesthesia PFSH: Medical History Anxiety -anxiolytics PRN COPD (chronic obstructive pulmonary disease) Depression Hip fracture, left Hyponatremia Protein calorie malnutrition -BMI-19 kg/m2 -poor appetite; added Ensure to meals Smoker Recently quit Surgical History (Updated 09/08/19 @ 06:34 by Evelio Riggs DO) History of bladder suspension procedure History of hysterectomy -secondary to pre-malignant lesions History of total left hip arthroplasty Family History Father Congestive heart failure Mother Dementia Sister Brain aneurysm ruptured Social History (Updated 09/07/19 @ 10:15 by Geri Flores DO) Smoking and tobacco status: former smoker Quit status (tobacco): has quit using tobacco Year quit tobacco: recently stopped 08/26 Alcohol intake: current Alcohol intake frequency: holidays/special occasions only Alcohol type: beer Household members: significant other Housing: House Marital status: Current occupational status: retired Data Anesthesia CBC & Chem 7: 09/08/19 04:29 09/08/19 04:29 Other Labs: Laboratory Results - last 48 hr 09/07/19 09/07/19 09/07/19 07:10 07:10 07:48 WBC 9.7 RBC 3.64 L Hgb 10.3 L Hct 30.6 L MCV 84.1 MCH 28.3 MCHC 33.7 RDW 13.6 Plt Count 473 H MPV 9.1 Neut % (Auto) 77.3 Lymph % (Auto) 6.6 [place] % (Auto) 15.2 Eos % (Auto) 0.0 Baso % (Auto) 0.2 Neut # (Auto) 7.52 Lymph # (Auto) 0.6 L [place] # (Auto) 1.5 H Eos # (Auto) 0.0 Baso # (Auto) 0.0 Nucleated RBC % (auto) 0 Nucleated RBCs # 0.0 Sodium 116 L* Potassium 4.1 Chloride 81 L Carbon Dioxide 24 Anion Gap 15.1 BUN 10 Creatinine 0.4 L GFR Calculation Not Reportable Glucose 129 H Calculated Osmolality 240 L Calcium 9.1 Phosphorus Magnesium Total Bilirubin 0.4 AST 21 ALT 12 Alkaline Phosphatase 76 Troponin T Baseline Troponin T 120 Minute Delta Troponin T Troponin T Hi Sens 6Hr Troponin T Hi Sens 6Hr Delta Total Protein 6.2 L Albumin 3.0 L Globulin 3.2 TSH Urine Color Yellow Urine Appearance Cloudy Urine pH 7.0 Ur Specific [place] 1.010 Urine Protein Neg Urine Glucose (UA) Norm Urine Ketones Negative Urine Blood 3+ H Urine Nitrate Positive H Urine Bilirubin Neg Urine Urobilinogen Norm Ur Leukocyte Esterase 2+ H Urine RBC 5-10 H Urine WBC 10-15 H Ur Squamous Epith Cells 0-4 H Amorphous Sediment Not Reportable Urine Bacteria 4+ H Ur Random Sodium 09/07/19 09/07/19 09/07/19 08:59 08:59 11:30 WBC RBC Hgb Hct MCV MCH MCHC RDW Plt Count MPV Neut % (Auto) Lymph % (Auto) [place] % (Auto) Eos % (Auto) Baso % (Auto) Neut # (Auto) Lymph # (Auto) [place] # (Auto) Eos # (Auto) Baso # (Auto) Nucleated RBC % (auto) Nucleated RBCs # Sodium 117 L* Potassium 4.0 Chloride 83 L Carbon Dioxide 24 Anion Gap 14.0 BUN 11 Creatinine 0.4 L GFR Calculation Not Reportable Glucose 106 Calculated Osmolality 240 L Calcium 7.8 L Phosphorus 3.7 Magnesium 1.5 L Total Bilirubin AST ALT Alkaline Phosphatase Troponin T Baseline Troponin T 120 Minute Delta Troponin T Troponin T Hi Sens 6Hr Troponin T Hi Sens 6Hr Delta Total Protein Albumin Globulin TSH 3.58 Urine Color Urine Appearance Urine pH Ur Specific [place] Urine Protein Urine Glucose (UA) Urine Ketones Urine Blood Urine Nitrate Urine Bilirubin Urine Urobilinogen Ur Leukocyte Esterase Urine RBC Urine WBC Ur Squamous Epith Cells Amorphous Sediment Urine Bacteria Ur Random Sodium 54 09/07/19 09/07/19 09/07/19 15:10 15:10 17:11 WBC RBC Hgb Hct MCV MCH MCHC RDW Plt Count MPV Neut % (Auto) Lymph % (Auto) [place] % (Auto) Eos % (Auto) Baso % (Auto) Neut # (Auto) Lymph # (Auto) [place] # (Auto) Eos # (Auto) Baso # (Auto) Nucleated RBC % (auto) Nucleated RBCs # Sodium 117 L* Potassium Chloride Carbon Dioxide Anion Gap BUN Creatinine GFR Calculation Glucose Calculated Osmolality Calcium Phosphorus Magnesium Total Bilirubin AST ALT Alkaline Phosphatase Troponin T Baseline 25 H Troponin T 120 Minute 25.76 H Delta Troponin T 0.76 Troponin T Hi Sens 6Hr Troponin T Hi Sens 6Hr Delta Total Protein Albumin Globulin TSH Urine Color Urine Appearance Urine pH Ur Specific [place] Urine Protein Urine Glucose (UA) Urine Ketones Urine Blood Urine Nitrate Urine Bilirubin Urine Urobilinogen Ur Leukocyte Esterase Urine RBC Urine WBC Ur Squamous Epith Cells Amorphous Sediment Urine Bacteria Ur Random Sodium 09/07/19 09/07/19 09/07/19 18:46 21:14 22:50 WBC RBC Hgb Hct MCV MCH MCHC RDW Plt Count MPV Neut % (Auto) Lymph % (Auto) [place] % (Auto) Eos % (Auto) Baso % (Auto) Neut # (Auto) Lymph # (Auto) [place] # (Auto) Eos # (Auto) Baso # (Auto) Nucleated RBC % (auto) Nucleated RBCs # Sodium 118 L* 119 L* Potassium Chloride Carbon Dioxide Anion Gap BUN Creatinine GFR Calculation Glucose Calculated Osmolality Calcium Phosphorus Magnesium Total Bilirubin AST ALT Alkaline Phosphatase Troponin T Baseline Troponin T 120 Minute Delta Troponin T Troponin T Hi Sens 6Hr 28.04 H Troponin T Hi Sens 6Hr Delta 3.04 Total Protein Albumin Globulin TSH Urine Color Urine Appearance Urine pH Ur Specific [place] Urine Protein Urine Glucose (UA) Urine Ketones Urine Blood Urine Nitrate Urine Bilirubin Urine Urobilinogen Ur Leukocyte Esterase Urine RBC Urine WBC Ur Squamous Epith Cells Amorphous Sediment Urine Bacteria Ur Random Sodium 09/08/19 09/08/19 04:29 04:29 WBC 8.8 RBC 3.22 L Hgb 9.3 L Hct 28.3 L MCV 87.9 MCH 28.9 MCHC 32.9 RDW 13.9 Plt Count 383 MPV 8.8 Neut % (Auto) 76.2 Lymph % (Auto) 6.8 [place] % (Auto) 15.8 Eos % (Auto) 0.1 Baso % (Auto) 0.1 Neut # (Auto) 6.70 Lymph # (Auto) 0.6 L [place] # (Auto) 1.4 H Eos # (Auto) 0.0 Baso # (Auto) 0.0 Nucleated RBC % (auto) 0 Nucleated RBCs # 0.0 Sodium 124 L Potassium 3.4 L Chloride 93 L Carbon Dioxide 21 L Anion Gap 13.4 BUN 7 L Creatinine 0.3 L GFR Calculation Not Reportable Glucose 96 Calculated Osmolality 254 L Calcium 8.1 L Phosphorus Magnesium Total Bilirubin 0.3 AST 19 ALT 12 Alkaline Phosphatase 68 Troponin T Baseline Troponin T 120 Minute Delta Troponin T Troponin T Hi Sens 6Hr Troponin T Hi Sens 6Hr Delta Total Protein 5.8 L Albumin 2.7 L Globulin 3.1 TSH Urine Color Urine Appearance Urine pH Ur Specific [place] Urine Protein Urine Glucose (UA) Urine Ketones Urine Blood Urine Nitrate Urine Bilirubin Urine Urobilinogen Ur Leukocyte Esterase Urine RBC Urine WBC Ur Squamous Epith Cells Amorphous Sediment Urine Bacteria Ur Random Sodium Micro: Microbiology 09/07/19 07:48 Urine Culture - Preliminary Urine,Clean Catch Gram Negative Rods 09/07/19 09:17 Blood Culture - Preliminary Blood NEGATIVE TO DATE 09/07/19 07:10 Blood Culture - Preliminary Blood NEGATIVE TO DATE Cardiac Studies: No Data to Display
[2019-09-08 10:08] LABS: Sodium 124 mmol/L (136-145)
[2019-09-08] MEDS: potassium chloride oral liq 20 mEq/15 mL UDC 40 MEQ PO (10:20)
[2019-09-08] MEDS: magnesium sulfate premix 2 GM/50 ML PIGGYBACK IV (10:22)
[2019-09-08] MEDS: enoxaparin 40 mg/0.4 mL Syringe SUBCUT (10:23)
--- NOTE | 2019-09-08 11:45 | PC.CHAP ---
Pastoral Care Encounter/Spiritual Assessment Type of Contact [] Declined sheriff's officer visit [] Patient/Family/Request visit [] Outpatient visit [] Follow-up visit [] Physician referral [] Code/Alert [X] Routine visit [] Staff referral [] Actively dying [] Patient sleeping [] Family support [] [] Out of room [] Palliative care [] [X] Receiving care in room [] Pre-surgical visit [] Trauma [] Long length of stay [] ICU visit [] Other: Relational/Emotional Strength [] Patient feels connected with others/family/visitors/staff [] Distress [] Loneliness/isolation [] Abandonment Spirituality of Patient [] Person of Birgit [] Attends Hoahaoism of their [place] [] Believes in Prayer [] Reads Bible or Adventism materials [] There are Spiritual issues to be addressed Body Shop Manager Interventions [] Prayer [X] Active listening [] Non-anxious presence [] Spiritual/emotional support [] Crisis/trauma care [] Spiritual counseling [] Bereavement support [] Provided bereavement packet [] Provided Bible/devotional materials [] Provided toy/stuffed animal, coloring book to patient or family member [] Provided Communion [] Anointing/[place] [] Salvation [] Completed spiritual assessment [] Other: Impact on Illness or Injury [] Angry [] Fearful [] Anxious [] Often cries [] Exhaustion [] Unable to work [] Unable to attend synagogue [] Unable to walk/stand [] Unable to read [] Unable to drive [] Unable to eat/drink [] Unable to sleep [] Unable to be with family [] Patient intubated [] Other: Summary: Before I could complete the visit, her physician entered the room. I was able to hear part of her story. Surgery is planned for in the morning. I will visit her again. Time spent with patient
--- NOTE | 2019-09-08 15:43 | PM.PN ---
Subjective Subjective: Interval history: Today she is doing all right. She says pain in the left hip is under control if she is staying still, although sometimes gets worse if she moves. Denies any chest pain. Breathing is comfortable. Says she fell down after losing her balance while to be doing and reaching to turn off a ceiling fan. She says she realizes that she should be more careful. Vitals/I&O/Wt Last Vital Signs Temp 98.3 F 09/08/19 08:00 Pulse 96 09/08/19 11:19 Resp 22 H 09/08/19 14:58 BP 123/66 09/08/19 08:00 Pulse Ox 96 09/08/19 14:58 09/08/19 09/08/19 09/08/19 06:59 14:59 22:59 Intake Total 692.083 / 1978.333 460 / 460 Output Total 975 / 1155 Balance -282.917 / 823.333 460 / 460 Weight last 48 hrs Weight 45.042 kg Weight 63.503 kg Physical Exam Const: COMMON NORMALS: no acute distress and patient oriented x3 HENMT: COMMON NORMALS: oropharynx normal Neck/C-Spine: COMMON NORMALS: no JVD Resp: COMMON NORMALS: normal respiratory effort and clear to auscultation bilaterally AUSCULTATION: clear to auscultation bilaterally Cardio: COMMON NORMALS: no JVD, regular rhythm, S1 normal heart sound present, S2 normal heart sound present and No murmurs present (Cardio) RHYTHM: regular rhythm HEART SOUNDS: S1 normal heart sound present and S2 normal heart sound present GI: COMMON NORMALS: Normal to inspection, nondistended, normoactive bowel sounds present, Soft to palpation and non-tender PALPATION: Yes Soft to palpation Extremity: COMMON NORMALS: no pedal edema LEFT LOWER EXTREMITY: Yes hip joint Left hip: Yes inspection (Left hip joint deformity with dislocation. Left lower extremity inverted, shorter. No significant erythema, tenderness on palpation. Left foot is warm and perfused.) Neuro: COMMON NORMALS: patient oriented x3 and moves all extremities Skin: COMMON NORMALS: no rashes or lesions noted GENERAL SKIN EXAM: no rashes or lesions noted Urinary Catheter Management^: Bynum: Cath Placed During This Visit: yes Reason for Continuing Indwelling Catheter: Required Immobilization for Trauma or Surgery or Anesthesia Urinary Catheter Date of Insertion: 09/07/19 Urinary Catheter Time of Insertion: 11:32 Data : 09/08/19 04:29 09/08/19 09:22 Micro: Microbiology 09/07/19 07:48 Urine Culture - Preliminary Urine,Clean Catch Gram Negative Rods 09/07/19 09:17 Blood Culture - Preliminary Blood NEGATIVE TO DATE 09/07/19 07:10 Blood Culture - Preliminary Blood NEGATIVE TO DATE A&P Assessment and plan (1) Dislocation of hip, left, closed: Recurrent dislocation of left hip prosthesis. Plans for reduction in the operating room with anesthesia as it could not be reduced in the ER. Likely tomorrow. N.p.o. after midnight. Her sodium is gradually improving. Her heart rate was high this morning, but is better with electrolyte replacement, increase in dose of beta-lisa. She did receive 1 dose of Cardizem early this morning. Patient was admitted in July for fall resulting in hip fracture and total hip arthroplasty on the left. Had dislocation last week which was reduced in the emergency department and patient was discharged to home. Case management on board as she will likely require halfway facility placement. Status: Acute (2) Hyponatremia: Sodium with gradual rise overnight to 124 this morning. Held further IV fluids which she was receiving for hypovolemic hyponatremia. Sodium stabilized at 124 which is a good rise for 24 hours, will keep there for now, monitor. Acute on chronic hyponatremia. Patient also on SSRI, will titrate off Status: Acute (3) Depression: Titrate down SSRI due hyponatremia Status: Acute Qualifiers: Depression Type: major depressive disorder Major depression recurrence: unspecified whether recurrent Active/Remission status: remission status unspecified Qualified Code(s): F32.9 - Major depressive disorder, single episode, unspecified (4) COPD (chronic obstructive pulmonary disease): Without acute exacerbation. Reportedly recently stopped smoking. 2 L of oxygen by nasal cannula at baseline Status: Acute Additional A&P Information Atrial flutter with RVR: Received a dose of Cardizem overnight. This morning we replaced her electrolytes including potassium, magnesium, and increased dose of metoprolol to 25 mg twice a day. Heart rates improved, currently staying in the 90s. Anticoagulation could be considered, however, would be very high risk in this lady with recurrent falls, mild dementia, exposing her to overly high risks of bleeding. She is currently on aspirin. This may be transient secondary to urinary tract infection, pain from hip dislocation, electrolyte abnormalities. TSH is normal. Echocardiogram with low normal ejection fraction, without any major valvular abnormality. Mild LVH. She had mild troponin elevation on presentation, without suggestion of acute HI. She is having no chest pain or other discomfort to suggest cardiac ischemia. She is a recent smoker. Consideration may be given to nonemergent/outpatient stress test for additional assessment and risk stratification. Acute cystitis: Continue on Rocephin, urine culture pending, growing gram-negative rods. Protein calorie malnutrition: Ensure supplementation. Encourage oral nutrition. DVT prophylaxis: Lovenox, hold after today's dose with plans to OR tomorrow. Resume afterward. Diet: N.p.o. after midnight CODE STATUS: Full code Attestations Medical Necessity Statement*: Continue admission for assessment of acute on chronic hyponatremia, Coding Level of Care Code Acute Mix Mill Tender for [facility] Fwd Exam Comprehensive Diagnoses Dislocation of hip, left, closed S73.005A Hyponatremia E87.1 Depression F32.9 Depression Type: major depressive disorder Major depression recurrence: unspecified whether recurrent Active/Remission status: remission status unspecified COPD (chronic obstructive pulmonary disease) J44.9
[2019-09-08 17:00] LABS: Sodium 125 mmol/L (136-145)
[2019-09-08] MEDS: metoprolol tartrate 25 mg Tablet PO (18:08)
--- NOTE | 2019-09-08 19:25 | PC.NURSE ---
Received bedside report from KATHY Fu. Patient incontinent of stool. Performed lake-care, linen and gown changed. Replaced absorbent padding. Noted wounds to bilateral sacrum. Cleaned and covered both with Opti-foam. Patient tolerated fair c/o mild pain to left hip during positioning. Placed patient for comfort using draw sheet. Patient expressed relief of pain at this time. Patient denies other discomforts or needs. No distress observed.
[2019-09-08] MEDS: LORazepam 0.5 mg Tablet PO (20:45)
[2019-09-09] VITALS (25 sets, daily range): BP systolic 87–134; BP diastolic 42–86; PULSE 85–139; RESP 15–35; TEMP 35.7–36.9; O2SAT 92–100
--- NOTE | 2019-09-09 | XR_ITS ---
WS: [id number] C-ARM RADIOGRAPHS LEFT HIP; 2 IMAGES HISTORY: OR PICS COMPARISON: 09/07/2019 LEFT hip arthroplasty now in good position with respect to the acetabulum. XR/XR hip LT 1V wo/w pel [id number] IMPRESSION: Successful postreduction imaging.
--- NOTE | 2019-09-09 | SCC_ITS ---
Procedure Done: Open reduction left bipolar hip 19.2 seconds of fluoroscopic guidance, for a cumulative dose of 0.84 mGy, was provided to Dr. Ojeda by the radiology department. C-arm images of the LEFT hip were saved for the patient's permanent record. [facility] HEALTHYeison
[2019-09-09 05:31] LABS: Basophils % 0.3 %; Eosinophils % 0.3 %; Hematocrit 29.8 % (37.0-47.0); Hemoglobin 9.6 g/dL (11.5-15.3); Lymphocytes # 0.6 10^3/uL (0.8-4.8); Lymphocytes % 7.2 %; Mean Corpuscular HGB Conc 32.2 g/dL (30.0-36.0); Mean Corpuscular Hemoglobin 28.3 pg (28.0-34.0); Mean Corpuscular Volume 87.9 fL (81-99); Mean Platelet Volume 8.9 fL (7.4-10.4); Monocytes # 1.2 10^3/uL (0.2-0.9); Monocytes % 15.6 %; Neutrophils # 6.02 10^3/uL (1.8-7.7); Neutrophils % 75.3 %; Nucleated Red Blood Cells % 0 %; Platelet Count 431 10^3/cmm (130-400); Red Blood Count 3.39 10^6/uL (4.1-5.3); Red Cell Distribution Width 14.1 % (12.1-15.1)
[2019-09-09 05:50] LABS: Anion Gap 12.2 (5-19); Blood Urea Nitrogen 7 mg/dL (8-23); Calcium 8.3 mg/dL (8.5-10.5); Carbon Dioxide 25 mmol/L (22-29); Chloride 93 mmol/L (98-107); Glucose 105 mg/dL (65-115); Magnesium 1.8 mg/dL (1.7-2.3); Osmolality Calculated 258 mOsm/kg (285-295); Potassium 4.2 mmol/L (3.5-5.1); Sodium 126 mmol/L (136-145)
--- NOTE | 2019-09-09 07:29 | PC.NURSE ---
To Surgery [place] via bed.
--- NOTE | 2019-09-09 08:08 | W.PM.OPSUD ---
Surgery/Procedure H&P Update DATE OF PROCEDURE: September 09, 2019 DATE H&P PERFORMED: 08/31/19 PREOP DIAGNOSIS: Dislocation Left Bipolar Hip Arthroplasty PLANNED PROCEDURE: Operation Date: 09/09/19 08:00 Proposed Procedures p Closed Reduction Hip(Left) - Sahil Ojeda MD
[2019-09-09] MEDS: meperidine 50 mg/mL INJ 12.5 MG IVP (10:10)
--- NOTE | 2019-09-09 10:15 | XRR_ITS ---
PROCEDURE INFORMATION: Exam: XR Left Hip Exam date and time: 09/09/2019 10:16 AM Age: 74 years old Clinical indication: Hip pain; Left hip; Prior surgery; Surgery date: Post-operative (0-2 days); Surgery type: Arthroplasty; Additional info: Left bipolar arthroplasty status post open reduction TECHNIQUE: Imaging protocol: XR Left hip Views: Single AP view. COMPARISON: CR XR hip LT 2-3V wo/w pel* [id number] 09/07/2019 7:11 AM FINDINGS: Bones/joints: Left bipolar hip replacement relocated within the acetabular. Soft tissues: Lateral surgical cutaneous clips. Vasculature: Vascular calcifications are present. XR/XR hip LT 1V wo/w pel [id number] IMPRESSION: 1. Interval reduction left hip hemiarthroplasty. 2. No acute bony or hardware abnormality identified.
--- NOTE | 2019-09-09 10:15 | PM.OP ---
Operative Report Date of procedure: September 09, 2019 Pre-op Diagnosis: Dislocation Left Bipolar Hip Arthroplasty Post-op diagnosis: same Post-op Findings: Same Procedure Done: Open reduction left bipolar hip Pathology: none sent Surgeon: Sahil Ojeda Anesthesia: General Estimated blood loss (mL): 100 Complications: None Findings: The patient had a subacute posterior dislocation of the left bipolar hip arthroplasty. No acetabular or other fractures were identified. The posterior capsule and external rotators were scarred could be mobilized back to the greater trochanter albeit with tension Condition: stable Disposition: PACU Brief History: The patient is a 74-year-old female who underwent a left bipolar arthroplasty approximately on 07/26/2019 with a postoperative dislocation treated with a closed reduction on 08/31/2019. She presented to the emergency room 2 days ago with a posterior dislocation of her left hip with a significant proximal migration. Efforts to close reduction in the emergency room were unsuccessful likely due to the chronicity of the dislocation. She was hyponatremic and knee required medical optimization before returning to the operating room. Was brought to the operating room for attempted closed reduction under anesthesia and a possible open reduction. Procedure: The patient was taken to the operating room and given a general anesthesia and muscle layer relaxation. She was positioned on the [place] table and longitudinal traction applied across the right lower extremity hour however even with significant traction the hip could not be reduced. I decision was made to proceed with an open reduction. She was then positioned in the lateral position with her left hip exposed. She was given 2 g of Ancef. She was approached to her previous lateral incision. Upon going through the subcutaneous tissues large hematoma was identified which was cultured. The fascia nitin and gluteal musculature was then split in line with the previous incision revealing the head dislocated anterior and posterior to the acetabulum. The acetabulum was inspected and found to be free of debris's. No acetabular fracture was noted. With longitudinal traction and a femoral head pusher the hip was reduced. Units of the capsule and external rotators were identified scarred down to the posterior acetabulum. Utilizing electrocautery and a [place] the capsule was mobilized to the point where it could come in contact with the posterior greater trochanter and abductor musculature. It was secured with ultra tape suture. The lateral abductor musculature and tissues over the greater trochanter were then sutured with Ethibond suture to the posterior fascia lot to limit internal rotation which would place the hip at risk for dislocation. The wound was irrigated with antibiotic solution. The fascia nitin was closed with 1 Ethibond. The subcutaneous tissues were closed with 2-0 Vicryl. The skin was closed with skin chastity. Sterile dressings were applied. The patient was placed in abduction pillow. She was extubated and taken recovery in stable condition.
[2019-09-09] MEDS: metoprolol tartrate 1 mg/1 mL SDV 5 mL 2 MG IV (10:23)
--- NOTE | 2019-09-09 10:34 | P.PN_ITS ---
Subjective Subjective: Interval history: She is having some pain in the hip, but does say it responded to a pain medicine. Vitals/I&O/Wt Last Vital Signs Temp 98.4 F 09/09/19 10:30 Pulse 105 H 09/09/19 10:30 Resp 16 09/09/19 10:30 BP 90/57 09/09/19 10:25 Pulse Ox 94 09/09/19 10:30 09/08/19 09/09/19 09/09/19 22:59 06:59 14:59 Intake Total 440 / 900 120 / 1020 0 / 0 Output Total 1680 / 1680 575 / 2255 400 / 400 Balance -1240 / -780 -455 / -1235 -400 / -400 Weight last 48 hrs Weight 45.994 kg Weight 44.906 kg Weight 45.042 kg Physical Exam Const: COMMON NORMALS: no acute distress and patient oriented x3 GENERAL APPEARANCE: cooperative ORIENTATION/CONSCIOUSNESS: Yes awake HENMT: COMMON NORMALS: oropharynx normal Neck/C-Spine: COMMON NORMALS: no JVD Resp: COMMON NORMALS: normal respiratory effort and clear to auscultation bilaterally AUSCULTATION: clear to auscultation bilaterally Cardio: COMMON NORMALS: no JVD, regular rhythm, S1 normal heart sound present, S2 normal heart sound present and No murmurs present (Cardio) RHYTHM: regular rhythm HEART SOUNDS: S1 normal heart sound present and S2 normal heart sound present GI: COMMON NORMALS: Normal to inspection, nondistended, normoactive bowel sounds present, Soft to palpation and non-tender PALPATION: Yes Soft to palpation Extremity: COMMON NORMALS: no pedal edema NARRATIVE EXTREMITY EXAM: Legs fixed in abduction pillow. Feet warm and perfused. Neuro: COMMON NORMALS: patient oriented x3 and moves all extremities Skin: COMMON NORMALS: no rashes or lesions noted GENERAL SKIN EXAM: no rashes or lesions noted Urinary Catheter Management^: Bynum: Cath Placed During This Visit: yes Reason for Continuing Indwelling Catheter: Required Immobilization for Trauma or Surgery or Anesthesia Urinary Catheter Date of Insertion: 09/07/19 Urinary Catheter Time of Insertion: 11:32 Data : 09/09/19 05:02 09/09/19 13:05 Micro: Microbiology 09/07/19 07:48 Urine Culture - Final Urine,Clean Catch Escherichia coli 09/07/19 09:17 Blood Culture - Preliminary Blood NEGATIVE TO DATE 09/07/19 07:10 Blood Culture - Preliminary Blood NEGATIVE TO DATE A&P Assessment and plan (1) Dislocation of hip, left, closed: Status post close reduction under anesthesia today. Perioperatively with episode of tachycardia for which was given 2 mg of IV metoprolol with good response. Blood pressure soft. Did receive a NS bolus of 1 L. BP soft post-operatively, will resume gentle IVF. Monitor. Recurrent dislocation of left hip prosthesis. Discussed with her orthopedic recommendation for placement to care home due to recurrent hip dislocation. She states her would most likely be asking her to come home, but that she understands the need of going to the care home, and definitely does not want for dislocation to happen again. I could not reach her by phone to discuss. Patient was admitted in July for fall resulting in hip fracture and total hip arthroplasty on the left. Had dislocation last week which was reduced in the emergency department and patient was discharged to home. Case management on board as she will likely require fdc facility placement. Status: Acute (2) Hyponatremia: Up to 126 this morning. Received bolus of NS intraoperatively. Repeat sodium again 126, will resume gentle NS infusion, reassess sodium level. Acute on chronic hyponatremia. Patient also on SSRI, will titrate off. Decrease to 10mg daily, then consider every other day and stop. Status: Acute (3) Depression: Titrate down SSRI due hyponatremia Status: Acute Qualifiers: Active/Remission status: remission status unspecified Depression Type: major depressive disorder Major depression recurrence: unspecified whether recurrent Qualified Code(s): F32.9 - Major depressive disorder, single episode, unspecified (4) COPD (chronic obstructive pulmonary disease): Without acute exacerbation. Reportedly recently stopped smoking. 2 L of oxygen by nasal cannula at baseline Status: Acute Additional A&P Information Atrial flutter with RVR: Received a dose of Cardizem overnight. This morning we replaced her electrolytes including potassium, magnesium, and increased dose of metoprolol to 25 mg twice a day. Heart rates improved, currently staying in the 90s. Anticoagulation could be considered, however, would be very high risk in this lady with recurrent falls, mild dementia, exposing her to overly high risks of bleeding. She is currently on aspirin. This may be transient secondary to urinary tract infection, pain from hip dislocation, electrolyte abnormalities. TSH is normal. Echocardiogram with low normal ejection fraction, without any major valvular abnormality. Mild LVH. She had mild troponin elevation on presentation, without suggestion of acute TX. She is having no chest pain or other discomfort to suggest cardiac ischemia. She is a recent smoker. Consideration may be given to nonemergent/outpatient stress test for additional assessment and risk stratification. Acute cystitis: Continue on Rocephin, urine culture pending, growing gram- negative rods. Protein calorie malnutrition: Ensure supplementation. Encourage oral nutrition. DVT prophylaxis: Lovenox Diet: CLD, advance as tolerating. CODE STATUS: Full code Attestations Medical Necessity Statement*: At the time postoperative monitoring, with soft blood pressures, new atrial flutter with RVR episodes, hyponatremia and d isposition planning. Coding Level of Care Code Acute Service And Repair Supervisor for Chg Fwd Exam Comprehensive Diagnoses Dislocation of hip, left, closed S73.005A Hyponatremia E87.1 Depression F32.9 Active/Remission status: remission status unspecified Depression Type: major depressive disorder Major depression recurrence: unspecified whether recurrent COPD (chronic obstructive pulmonary disease) J44.9
--- NOTE | 2019-09-09 10:56 | PC.CHAP ---
Pastoral Care Encounter/Spiritual Assessment Type of Contact [] Declined cathode ray tube assembler visit [] Patient/Family/Request visit [] Outpatient visit [X] Follow-up visit [] Physician referral [] Code/Alert [] Routine visit [] Staff referral [] Actively dying [X] Patient sleeping [] Family support [] [] Out of room [] Palliative care [] [] Receiving care in room [] Pre-surgical visit [] Trauma [] Long length of stay [] ICU visit [X] Other: post-surgery; pt sleeping Relational/Emotional Strength [] Patient feels connected with others/family/visitors/staff [] Distress [] Loneliness/isolation [] Abandonment Spirituality of Patient [] Person of Birgit [] Attends Judaism of their [place]git [] Believes in Prayer [] Reads Bible or Presybeterian materials [] There are Spiritual issues to be addressed School Bus Inspector Interventions [] Prayer [] Active listening [] Non-anxious presence [] Spiritual/emotional support [] Crisis/trauma care [] Spiritual counseling [] Bereavement support [] Provided bereavement packet [] Provided Bible/devotional materials [] Provided toy/stuffed animal, coloring book to patient or family member [] Provided Communion [] Anointing/[place] [] Salvation [] Completed spiritual assessment [] Other: Impact on Illness or Injury [] Angry [] Fearful [] Anxious [] Often cries [] Exhaustion [] Unable to work [] Unable to attend gnosticist [] Unable to walk/stand [] Unable to read [] Unable to drive [] Unable to eat/drink [] Unable to sleep [] Unable to be with family [] Patient intubated [] Other: Summary: Yesterday's visit was interrupted by other team members providing care, so I tried to visit again today as she was very receptive to a cathode ray tube assembler visit. First attempt today--she was out of her room and in surgery. Second attempt today -- she had just returned from surgery and was being monitored plus was in no condition to visit, of course. Time spent with patient
[2019-09-09] MEDS: oxyCODONE-APAP 5-325 mg Tablet 1 TAB PO (11:10)
[2019-09-09] MEDS: cefTRIAXone 1,000 MG in sodium chloride 0.9% (plus) 50 ML 100 MG IV (12:39)
[2019-09-09] MEDS: aspirin 81 mg EC Tablet PO (12:39)
[2019-09-09 13:54] LABS: Sodium 126 mmol/L (136-145)
[2019-09-09] MEDS: citalopram 20 mg Tablet 10 MG PO (14:44)
[2019-09-09] MEDS: chlorhexidine gluconate 0.12% Btl 473 mL 30 ML MUCOUS MEM ×3 (14:44→20:16)
[2019-09-09] MEDS: sodium chloride 0.9% 1,000 ML 75 ML IV (14:47)
--- NOTE | 2019-09-09 15:30 | PC.NURSE ---
Afib w/RVR 120s to 130s-Notified MD Talked to Dr. Sullivan thru [employer] phone on pt's BP- 89/53. MAP- 65, Manual check-80/50, MAP-60 Left hip pain rated 6/10 scale. HR 1549- 250 ml NS bolus. Trendelenburg position. Digoxin 250 mcg IVP given 1600- 92/49, [id number] 1628- hydrocortisone IVP given 1650- 250 mls NS bolus, BP-103/52, MAP- 69, HR-129 1715- 250 mls Bolus, BP-83/68,MAP-73 HR-135, Digoxin 250 mcg IVP given
[2019-09-09] MEDS: digoxin 250 mcg/ml INJ 2 mL IVP ×3 (15:32→18:23)
[2019-09-09] MEDS: sodium chloride 0.9% 250 ML IV ×3 (15:47→16:15)
[2019-09-09] MEDS: hydrocortisone 100 mg/2 mL SDV IVP (16:28)
--- NOTE | 2019-09-09 16:53 | PC.NURSE ---
called lab order for STAT H and H. called them.
[2019-09-09 17:25] LABS: Hemoglobin 8.7 g/dL (11.5-15.3)
[2019-09-09 17:39] LABS: Troponin(5th) Baseline 36 ng/L (0-10)
--- NOTE | 2019-09-09 18:08 | ECG_ITS ---
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 Measurements Intervals [place] Rate: 108 P: NC: -1 QRS: 73 QRSD: 85 T: 78 QT: 311 QTc: 417 Interpretive Statements ATRIAL FIBRILLATION WITH RAPID VENTRICULAR RESPONSE POSSIBLE RIGHT VENTRICULAR CONDUCTION DELAY [RSR (QR) IN V1/V2] ABNORMAL RHYTHM ECG INTERPRETATION BASED ON A DEFAULT AGE OF 40 YEARS Compared to ECG 09/08/2019 04:37:42 Atrial flutter no longer present Electronically Signed On 09-10-2019 9:45:09 CDT by Roxana Franco M.D. [email or web address]
[2019-09-09] MEDS: lidocaine 5% Patch 1 PATCH TOPICAL (18:11)
[2019-09-09] MEDS: sennosides-docusate Tablet 2 TAB PO (18:15)
[2019-09-09] MEDS: docusate sodium 100 mg Capsule PO (18:15)
[2019-09-09] MEDS: calcium carbonate 500 mg Chew Tablet 1000 MG PO (18:15)
[2019-09-09] MEDS: mupirocin oint 22 gm 1 APPLIC NASAL (18:16)
--- NOTE | 2019-09-09 18:44 | PC.NURSE ---
HR- 100s- 120s, afib Called Dr Sullivan. Digoxin given 250 mcg IVP. BP-104/57
--- NOTE | 2019-09-09 19:46 | PC.NURSE ---
Rounding: Patient resting in bed. Patient L hip dressing is dry and intact. Patient says site is a little tender to touch. patient abductor pillow in place. call light is within reach. Will continue to monitor.
[2019-09-09 19:47] LABS: Sodium 126 mmol/L (136-145)
[2019-09-09 19:48] LABS: Troponin 5 2HR 33.84 ng/L (0-10)
[2019-09-09 19:52] LABS: Troponin 5 2HR Delta -2.16 ABS# (0-10)
--- NOTE | 2019-09-09 20:11 | PC.NURSE ---
Called Dr. Ng reguarding patients night time dose of lovenox. Updated on hgb and post op. Orders to hold lovenox due to being post op 24hrs. Patient has SCDs on. Read back verbal order.
[2019-09-09] MEDS: LORazepam 0.5 mg Tablet PO (20:16)
--- NOTE | 2019-09-09 20:30 | PC.NURSE ---
Dr. Crook came by and clarifed we are transfusing a unit of blood. Order of RBC's placed [address] Cohen. Read back verbal order.
--- NOTE | 2019-09-09 21:05 | PC.NURSE ---
Consent for RBC transfusion signed with patient. Patient verbalized understanding. Will continue to monitor.
--- NOTE | 2019-09-09 22:08 | ECG_ITS ---
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 Measurements Intervals [place] Rate: 111 P: ID: -1 QRS: 84 QRSD: 84 T: 88 QT: 298 QTc: 405 Interpretive Statements ATRIAL FIBRILLATION WITH RAPID VENTRICULAR RESPONSE POSSIBLE RIGHT VENTRICULAR CONDUCTION DELAY [RSR (QR) IN V1/V2] ABNORMAL RHYTHM ECG Compared to ECG 09/09/2019 18:27:51 No significant changes Electronically Signed On 09-10-2019 20:35:14 CDT by Roxana Franco M.D. [email or web address]
[2019-09-09] MEDS: sodium chloride 0.9% (100 ml) 100 ML (23:24)
[2019-09-10] VITALS (12 sets, daily range): BP systolic 93–141; BP diastolic 49–75; PULSE 96–113; RESP 18–41; TEMP 36.4–36.7; O2SAT 93–98
[2019-09-10] MEDS: oxyCODONE-APAP 5-325 mg Tablet 1 TAB PO ×3 (00:31→19:43)
[2019-09-10 05:26] LABS: Basophils % 0.1 %; Hematocrit 33.4 % (37.0-47.0); Hemoglobin 10.4 g/dL (11.5-15.3); Lymphocytes # 0.6 10^3/uL (0.8-4.8); Lymphocytes % 5.1 %; Mean Corpuscular HGB Conc 31.1 g/dL (30.0-36.0); Mean Corpuscular Hemoglobin 27.9 pg (28.0-34.0); Mean Corpuscular Volume 89.5 fL (81-99); Mean Platelet Volume 8.9 fL (7.4-10.4); Monocytes # 1.1 10^3/uL (0.2-0.9); Monocytes % 9.7 %; Neutrophils # 9.49 10^3/uL (1.8-7.7); Neutrophils % 84.1 %; Nucleated Red Blood Cells % 0 %; Platelet Count 436 10^3/cmm (130-400); Red Blood Count 3.73 10^6/uL (4.1-5.3); Red Cell Distribution Width 13.8 % (12.1-15.1); White Blood Count 11.3 10^3/uL (4.0-10.0)
[2019-09-10 06:05] LABS: Troponin 5 6HR 27.04 ng/L (0-10)
--- NOTE | 2019-09-10 08:02 | DCPLANNER ---
Pg 2 of IM updated and reviewed with pt., no questions, copy provided.
[2019-09-10 08:28] LABS: Anion Gap 13.6 (5-19); Blood Urea Nitrogen 6 mg/dL (8-23); Calcium 8.4 mg/dL (8.5-10.5); Carbon Dioxide 22 mmol/L (22-29); Chloride 94 mmol/L (98-107); Digoxin 1.8 ng/mL (0.6-1.2); Glucose 113 mg/dL (65-115); Osmolality Calculated 257 mOsm/kg (285-295); Potassium 4.6 mmol/L (3.5-5.1); Sodium 125 mmol/L (136-145)
[2019-09-10] MEDS: multivitamin therapeutic Tablet 1 TAB PO (08:45)
[2019-09-10] MEDS: LORazepam 0.5 mg Tablet PO ×2 (08:45→21:13)
[2019-09-10] MEDS: cefTRIAXone 1,000 MG in sodium chloride 0.9% (plus) 50 ML 100 MG IV (08:45)
[2019-09-10] MEDS: citalopram 20 mg Tablet 10 MG PO (08:45)
[2019-09-10] MEDS: aspirin 81 mg EC Tablet PO (08:45)
[2019-09-10] MEDS: sodium chloride 0.9% 1,000 ML 75 ML IV (10:10)
[2019-09-10] MEDS: chlorhexidine gluconate 0.12% Btl 473 mL 30 ML MUCOUS MEM ×3 (10:14→21:12)
[2019-09-10] MEDS: mupirocin oint 22 gm 1 APPLIC NASAL ×2 (10:15→18:31)
--- NOTE | 2019-09-10 12:36 | PM.PN ---
Subjective Subjective: Interval history: Chart reviewed, had 200 mL urine output overnight, hemodynamically stable, intermittently tachycardic with HR in the 100-110 range, digoxin level elevated at 1.8 so would hold on further doses at this time, on room air. Noted slight leukocytosis with a white count of 11.3, improved hemoglobin at 10.4, sodium at 125, normal renal function. Patient known to me from previous admission, seems to be in good spirits, overall quite frail appearing. Seen in the late afternoon during visiting hours with present at bedside. Updated him on patient's clinical status and discussed disposition. Agreeable to [place]. Heart rate remains consistently in the 100-110 range, asymptomatic. Medications: Reviewed: Yes Medication Review Details: Active Medications Generic Name Dose Route Start Last Admin Trade Name Freq PRN Reason Stop Dose Admin Albuterol Sulfate 2.5 mg 09/09/19 07:18 Albuterol INHALATION ONCE PRN WHEEZING Aspirin 81 mg 09/08/19 09:00 09/10/19 08:45 Aspirin Ec PO 81 mg DAILY CECY Administration Calcium Carbonate 1,000 mg 09/09/19 18:00 09/10/19 07:51 Tums PO Not Given BID CECY Chlorhexidine Gluc kerri 30 ml 09/09/19 13:00 09/10/19 10:14 Perigard MUCOUS MEM 30 ml QID CECY Administration Citalopram Hydrobr omide 10 mg 09/09/19 14:20 09/10/19 08:45 Celexa PO 10 mg DAILY CECY Administration Docusate Sodium 100 mg 09/07/19 18:00 09/10/19 08:49 Colace PO Not Given BID CECY Enoxaparin Sodium 40 mg 09/09/19 22:07 09/09/19 21:53 Lovenox SUBCUT Not Given Q24H CECY Ceftriaxone Sodium 1,000 mg/ 50 mls @ 100 mls/ hr 09/08/19 09:00 09/10/19 08:45 Sodium Chloride IV 100 mls/hr Q24H CECY Administration Protocol Sodium Chloride 1,000 mls @ 75 ml s/hr 09/09/19 14:15 09/10/19 10:10 Sodium Chloride 0.9% IV 75 mls/hr .[id number] CECY Administration Lidocaine 1 patch 09/09/19 17:00 09/10/19 09:43 Lidoderm 5% Patc h TOPICAL Not Given [id number] CECY Lorazepam 0.5 mg 09/07/19 10:49 09/10/19 08:45 Ativan PO 0.5 mg BID PRN Administration anxiety Metoprolol Tartrat e 25 mg 09/08/19 09:00 09/09/19 17:32 Lopressor PO Not Given BID CECY Morphine Sulfate 2 mg 09/07/19 10:49 Morphine IVP Q4H PRN SEVERE PAIN Multivitamins Ther apeutic 1 tab 09/10/19 09:00 09/10/19 08:45 Multivitamin Tab PO 1 tab DAILY CECY Administration Mupirocin 1 applic 09/09/19 18:00 09/10/19 10:15 Bactroban NASAL 09/14/19 17:59 1 appful BID CECY Administration Naloxone HCl 0.1 mg 09/07/19 10:49 Narcan IVP Q2M PRN OPIATERV Naloxone HCl 0.1 mg 09/09/19 10:39 Narcan IVP Q2M PRN Respiratory rate less than 8. Non-Formulary Medi cation 1 cap 09/08/19 09:00 09/10/19 08:49 Vitamin D3 PO Not Given DAILY CECY Ondansetron HCl 4 mg 09/07/19 10:49 Zofran PO Q8H PRN NAUSEA Ondansetron HCl 4 mg 09/09/19 10:39 Zofran IVP Q6H PRN NAUSEA AND VOMITI NG Oxycodone/Acetamin ophen 1 tab 09/07/19 10:49 09/10/19 10:41 Percocet 5-325 M g PO 1 tab Q4H PRN Administration moderate to sever e pain Senna/Docusate Sod ium 2 tab 09/09/19 18:00 09/10/19 08:49 Senna-S PO Not Given BID CECY acetaminophen [From Vicodin] Allergy (Verified 08/31/19 08:14) swelling hydrocodone [From Vicodin] Allergy (Verified 08/31/19 08:14) swelling ibuprofen Allergy (Verified 08/31/19 08:14) swelling Vitals/I&O/Wt Last Vital Signs Temp 98.1 F 09/10/19 03:30 Pulse 111 H 09/10/19 08:51 Resp 21 H 09/10/19 10:41 BP 107/68 08/03/20 08:00 Pulse Ox 97 09/10/19 10:41 09/09/19 09/10/19 09/10/19 22:59 06:59 14:59 Intake Total 1088 / 1138 1237.5 / 2375.5 588.5 / 588.5 Output Total 500 / 900 200 / 1100 580 / 580 Balance 588 / 238 1037.5 / 1275.5 8.5 / 8.5 Weight last 48 hrs Weight 45.994 kg Weight 44.906 kg Physical Exam Const: COMMON NORMALS: no acute distress, patient oriented x3 and alert GENERAL APPEARANCE: cooperative, comfortable, frail appearing and appears older than stated age NUTRITIONAL APPEARANCE: thin ORIENTATION/CONSCIOUSNESS: Yes awake HENMT: COMMON NORMALS: normocephalic, atraumatic, hearing grossly normal bilaterally and moist oral mucous membranes HEAD & SCALP: normocephalic and atraumatic Eye: COMMON NORMALS: Equal, round and reactive pupils present, EOMs intact bilaterally and conjunctivae normal CONJUNCTIVA: Yes conjunctivae normal PUPIL: Yes Equal, round and reactive pupils present Neck/C-Spine: COMMON NORMALS: full ROM GENERAL: Yes normal visual inspection and Yes trachea midline Resp: COMMON NORMALS: normal respiratory effort, No retractions, No use of accessory muscles and clear to auscultation bilaterally EFFORT & INSPECTION: Yes able to speak in complete sentences, Yes symmetric chest movement and No tachypneic AUSCULTATION: clear to auscultation bilaterally Cardio: COMMON NORMALS: S1 normal heart sound present, S2 normal heart sound present and No murmurs present (Cardio) RATE: tachycardic RHYTHM: abnormal rhythm irregularly irregular HEART SOUNDS: S1 normal heart sound present and S2 normal heart sound present GI: COMMON NORMALS: Normal to inspection, nondistended, normoactive bowel sounds present, Soft to palpation and non-tender PALPATION: Yes Soft to palpation : BLADDER/KIDNEY EXAM: Yes catheter in place Catheter type (Female): urethral Extremity: COMMON NORMALS: normal to inspection, no clubbing, cyanosis or edema and no pedal edema NARRATIVE EXTREMITY EXAM: -adductor pillow in place, clean/dry/intact dressing over L lateral hip Neuro: COMMON NORMALS: patient oriented x3, moves all extremities, no focal motor deficits, no sensory deficits noted and gait normal SENSORIUM/ORIENTATION: Yes alert Psych: COMMON NORMALS: mental status grossly normal, Normal thought process present, cooperative, normal affect and speech normal SPEECH: Yes normal speech THOUGHT PROCESS: Normal thought process present Skin: COMMON NORMALS: no jaundice, no petechiae and no mottling NARRATIVE SKIN EXAM: -superficial excoriation and small well-circumscribed stage 2 ulcer just above gluteal cleft; no apparent drainage Urinary Catheter Management^: Bynum: Cath Placed During This Visit: yes Reason for Continuing Indwelling Catheter: Required Immobilization for Trauma or Surgery or Anesthesia Urinary Catheter Date of Insertion: 09/07/19 Urinary Catheter Time of Insertion: 11:32 Data : 09/10/19 04:35 09/10/19 04:35 Micro: Microbiology 09/09/19 09:18 Gram Stain - Final Hip - #1 09/07/19 07:48 Urine Culture - Final Urine,Clean Catch Escherichia coli A&P Assessment and plan (1) Atrial fibrillation: -new onset atrial fibrillation with RVR -BP has not been able to tolerate consistent beta-lisa use -Has received 2 doses of IV digoxin 0.25 mg; noted high digoxin level today so would hold off on further doses for now; repeat level tomorrow -telemetry monitoring -Echo: EF=55%, mild diffuse hypokinesia -not a good candidate for termination clerk anticoagulation due to continued high fall risk, on ASA Status: Acute Qualifiers: Atrial fibrillation type: unspecified Qualified Code(s): I48.91 - Unspecified atrial fibrillation (2) Dislocation of hip, left, closed: -s/p open reduction by Dr. Ojeda -Strict fall precautions -Working with physical therapy -wound cx pending, gram stain negative -can mobilize from bed to chair Status: Acute Qualifiers: Encounter type: initial encounter Qualified Code(s): S73.005A - Unspecified dislocation of left hip, initial encounter (3) Hyponatremia: -On gentle IVF hydration -Previously noted to be hyponatremic -Improving with hydration, encourage oral hydration Status: Acute (4) COPD (chronic obstructive pulmonary disease): -No acute exacerbation currently -Has a baseline oxygen requirement of 2 L nasal cannula, currently on room air Status: Chronic Qualifiers: COPD type: unspecified COPD Qualified Code(s): J44.9 - Chronic obstructive pulmonary disease, unspecified (5) UTI (urinary tract infection): -UA indicative of infection -urine cx: E.coli, galeano-sensitive -on Ceftriaxone -has Bynum catheter in place -blood cx negative Status: Acute Qualifiers: Hematuria presence: with hematuria Urinary tract infection type: acute cystitis Qualified Code(s): N30.01 - Acute cystitis with hematuria (6) Depression: -On Celexa, hold this due to hyponatremia Status: Chronic Qualifiers: Active/Remission status: remission status unspecified Depression Type: major depressive disorder Major depression recurrence: unspecified whether recurrent Qualified Code(s): F32.9 - Major depressive disorder, single episode, unspecified (7) Protein calorie malnutrition: -BMI-16 kg/m2 -poor appetite; added Ensure to meals Status: Chronic Qualifiers: Protein-calorie malnutrition severity: moderate Qualified Code(s): E44.0 - Moderate protein-calorie malnutrition (8) Anxiety: -anxiolytics PRN Status: Chronic (9) Anemia: -chronic normocytic anemia -baseline Hg is around 10 -continue to monitor Hg Status: Chronic Qualifiers: Anemia type: unspecified type Qualified Code(s): D64.9 - Anemia, unspecified Additional A&P Information -GI ppx with PPI -DVT ppx with SCDs, Lovenox -bowel regimen -regular diet as tolerated -Dispo: home with HH vs. SNF; agreeable to [facility] -Code status: FULL code; discussed with patient and at bedside Attestations Medical Necessity Statement*: Patient requires hospitalization for continued treatment of UTI, management of hyponatremia requiring IVF hydration, atrial fibrillation with RVR pending appropriate rate control; pending appropriate disposition. Time Spent in Patient Care: Greater than 35 minutes (>than 50% of time spent in counselling and/or direct pt care on unit). Coding Level of Care Code Acute Instructional Supervisor for Chg Fwd Exam Comprehensive Diagnoses Atrial fibrillation I48.91 Atrial fibrillation type: unspecified Dislocation of hip, left, closed S73.005A Encounter type: initial encounter Hyponatremia E87.1 COPD (chronic obstructive pulmonary disease) J44.9 COPD type: unspecified COPD UTI (urinary tract infection) N30.01 Hematuria presence: with hematuria Urinary tract infection type: acute cystitis Depression F32.9 Active/Remission status: remission status unspecified Depression Type: major depressive disorder Major depression recurrence: unspecified whether recurrent Protein calorie malnutrition E44.0 Protein-calorie malnutrition severity: moderate Anxiety F41.9 Anemia D64.9 Anemia type: unspecified type
--- NOTE | 2019-09-10 15:15 | PC.NURSE ---
Physician notification Talked to Dr. Ojeda via phone regarding order to remove Bynum cath. Discuss to him that pt stated she has urinary incontinence and pt had develop a Stage 2 Pressure Ulcer in Sacrum and stage 1 on left buttock. Discuss to him about keeping her Bynum catheter. Received order to keep her Bynum catheter until patient is able to mobilize well to stop the current order.
--- NOTE | 2019-09-10 19:50 | PC.NURSE ---
Rounding: Patient resting in bed watching TV. Patient complaining of left hip pain and was given a pain pill. Patient is alert and oriented x3. Patient denies any further needs. Will continue to monitor.
--- NOTE | 2019-09-10 20:57 | PM.PN ---
Subjective Subjective: Interval history: Left hip pain feeling better Vitals/I&O/Wt Last Vital Signs Temp 97.8 F 09/10/19 19:08 Pulse 107 H 09/10/19 19:08 Resp 18 09/10/19 19:43 BP 134/63 09/10/19 19:08 Pulse Ox 96 09/10/19 19:43 09/10/19 09/10/19 09/10/19 06:59 14:59 22:59 Intake Total 1237.5 / 2375.5 948.5 / 948.5 720 / 1668.5 Output Total 200 / 1100 580 / 580 500 / 1080 Balance 1037.5 / 1275.5 368.5 / 368.5 220 / 588.5 Weight last 48 hrs Weight 101 lb 6.4 oz Weight 99 lb Physical Exam Narrative: EXAM NARRATIVE: L hip dressing clean and dry. Minimal swelling left thight. Leg to length and foot externally rotated Urinary Catheter Management^: Bynum: Cath Placed During This Visit: yes Reason for Continuing Indwelling Catheter: Required Immobilization for Trauma or Surgery or Anesthesia Urinary Catheter Date of Insertion: 09/07/19 Urinary Catheter Time of Insertion: 11:32 Data : 09/10/19 04:35 09/10/19 04:35 Micro: Microbiology 09/09/19 09:18 Gram Stain - Final Hip - #1 Anaerobic Culture - Preliminary Wound Culture - Preliminary A&P Assessment and plan (1) Dislocation of hip, left, closed: Patient will continue in abduction pillow. I would suggest 6 weeks but ultimate decision up to operative surgeon Dr. Ventura. May mobilize bed to chair. Will be nonambulatory with abduction pillow in place. May need SNF placement al though I suspec will push for discharge home under his care. Status: Acute Qualifiers: Encounter type: initial encounter Qualified Code(s): S73.005A - Unspecified dislocation of left hip, initial encounter Attestations Medical Necessity Statement*: ok for discharge per ortho Coding Level of Care Code Acute Geothermal Operating Engineer for Chg Fwd Diagnoses Dislocation of hip, left, closed S73.005A Encounter type: initial encounter
[2019-09-10] MEDS: enoxaparin 40 mg/0.4 mL Syringe SUBCUT (21:12)
[2019-09-11] VITALS (9 sets, daily range): BP systolic 123–135; BP diastolic 74–86; PULSE 91–124; RESP 14–25; TEMP 36.6–36.7; O2SAT 93–98
--- NOTE | 2019-09-11 04:40 | PC.NURSE ---
Dr. Rivera called regarding patients heart rate ranging 115 to 130. Updated on blood pressures. Updated on dose of metoprolol set to start today. Orders to give 12.5 mg of PO metoprolol NOW x1 and allow the day shift provider to evaluate the other dose. Read back verbal order.
[2019-09-11 04:42] LABS: Basophils % 0.2 %; Eosinophils % 0.1 %; Hematocrit 31.5 % (37.0-47.0); Lymphocytes # 0.7 10^3/uL (0.8-4.8); Lymphocytes % 7.8 %; Mean Corpuscular HGB Conc 31.7 g/dL (30.0-36.0); Mean Corpuscular Hemoglobin 28.1 pg (28.0-34.0); Mean Corpuscular Volume 88.5 fL (81-99); Mean Platelet Volume 8.8 fL (7.4-10.4); Monocytes # 1.2 10^3/uL (0.2-0.9); Neutrophils # 6.67 10^3/uL (1.8-7.7); Neutrophils % 76.8 %; Nucleated Red Blood Cells % 0 %; Platelet Count 420 10^3/cmm (130-400); Red Blood Count 3.56 10^6/uL (4.1-5.3); Red Cell Distribution Width 13.8 % (12.1-15.1); White Blood Count 8.7 10^3/uL (4.0-10.0)
[2019-09-11] MEDS: metoprolol tartrate 25 mg Tablet 12.5 MG PO (04:47)
[2019-09-11] MEDS: sodium chloride 0.9% 1,000 ML 75 ML IV (04:49)
[2019-09-11] MEDS: oxyCODONE-APAP 5-325 mg Tablet 1 TAB PO ×3 (05:19→19:18)
[2019-09-11 06:57] LABS: Anion Gap 10.7 (5-19); Blood Urea Nitrogen 5 mg/dL (8-23); Calcium 8.3 mg/dL (8.5-10.5); Carbon Dioxide 25 mmol/L (22-29); Chloride 95 mmol/L (98-107); Glucose 105 mg/dL (65-115); Osmolality Calculated 260 mOsm/kg (285-295); Potassium 3.7 mmol/L (3.5-5.1); Sodium 127 mmol/L (136-145)
[2019-09-11 07:06] LABS: Digoxin 1.1 ng/mL (0.6-1.2)
[2019-09-11] MEDS: aspirin 81 mg EC Tablet PO (08:29)
[2019-09-11] MEDS: cefTRIAXone 1,000 MG in sodium chloride 0.9% (plus) 50 ML 100 MG IV (08:29)
[2019-09-11] MEDS: sennosides-docusate Tablet 2 TAB PO ×2 (08:29→17:27)
[2019-09-11] MEDS: multivitamin therapeutic Tablet 1 TAB PO (08:29)
[2019-09-11] MEDS: docusate sodium 100 mg Capsule PO ×2 (08:29→17:27)
[2019-09-11] MEDS: metoprolol tartrate 25 mg Tablet PO (08:29)
[2019-09-11] MEDS: LORazepam 0.5 mg Tablet PO ×2 (08:36→20:18)
[2019-09-11] MEDS: chlorhexidine gluconate 0.12% Btl 473 mL 30 ML MUCOUS MEM ×4 (08:48→20:17)
[2019-09-11] MEDS: mupirocin oint 22 gm 1 APPLIC NASAL (08:50)
[2019-09-11] MEDS: lidocaine 5% Patch 1 PATCH TOPICAL (08:51)
--- NOTE | 2019-09-11 09:43 | P.PN_ITS ---
Subjective Subjective: Interval history: Had 1200 mL urine output overnight, HR remains in 100-110 range, will increase BB dose, digoxin level normalized. Hemodynamically stable, stable hemoglobin, improved Na. Sitting in chair by bedside, seems to be in good spirits today, pending finalization of disposition. Wound cultures remain negative. Medications: Reviewed: Yes Medication Review Details: Active Medications Generic Name Dose Route Start Last Admin Trade Name Freq PRN Reason Stop Dose Admin Albuterol Sulfate 2.5 mg 09/09/19 07:18 Albuterol INHALATION ONCE PRN WHEEZING Aspirin 81 mg 09/08/19 09:00 09/11/19 08:29 Aspirin Ec PO 81 mg DAILY CECY Administration Calcium Carbonate 1,000 mg 09/09/19 18:00 09/11/19 08:45 Tums PO Not Given BID CECY Chlorhexidine Gluc kerri 30 ml 09/09/19 13:00 09/11/19 08:48 Perigard MUCOUS MEM 30 ml QID CECY Administration Citalopram Hydrobr omide 10 mg 09/09/19 14:20 09/10/19 08:45 Celexa PO 10 mg DAILY CECY Administration Docusate Sodium 100 mg 09/07/19 18:00 09/11/19 08:29 Colace PO 100 mg BID CECY Administration Enoxaparin Sodium 40 mg 09/09/19 22:07 09/10/19 21:12 Lovenox SUBCUT 40 mg Q24H CECY Administration Ceftriaxone Sodium 1,000 mg/ 50 mls @ 100 mls/ hr 09/08/19 09:00 09/11/19 08:29 Sodium Chloride IV 100 mls/hr Q24H CECY Administration Protocol Sodium Chloride 1,000 mls @ 75 ml s/hr 09/09/19 14:15 09/11/19 04:49 Sodium Chloride 0.9% IV 75 mls/hr .[id number] CECY Administration Lidocaine 1 patch 09/09/19 17:00 09/11/19 08:51 Lidoderm 5% Patc h TOPICAL 1 patch [id number] CECY Administration Lorazepam 0.5 mg 09/07/19 10:49 09/11/19 08:36 Ativan PO 0.5 mg BID PRN Administration anxiety Metoprolol Tartrat e 50 mg 09/11/19 18:00 Lopressor PO BID CECY Morphine Sulfate 2 mg 09/07/19 10:49 Morphine IVP Q4H PRN SEVERE PAIN Multivitamins Ther apeutic 1 tab 09/10/19 09:00 09/11/19 08:29 Multivitamin Tab PO 1 tab DAILY CECY Administration Mupirocin 1 applic 09/09/19 18:00 09/11/19 08:50 Bactroban NASAL 09/14/19 17:59 1 appful BID CECY Administration Naloxone HCl 0.1 mg 09/07/19 10:49 Narcan IVP Q2M PRN OPIATERV Naloxone HCl 0.1 mg 09/09/19 10:39 Narcan IVP Q2M PRN Respiratory rate less than 8. Non-Formulary Medi cation 1 cap 09/08/19 09:00 09/11/19 08:51 Vitamin D3 PO Not Given DAILY CECY Ondansetron HCl 4 mg 09/07/19 10:49 Zofran PO Q8H PRN NAUSEA Ondansetron HCl 4 mg 09/09/19 10:39 Zofran IVP Q6H PRN NAUSEA AND VOMITI NG Oxycodone/Acetamin ophen 1 tab 09/07/19 10:49 09/11/19 05:19 Percocet 5-325 M g PO 1 tab Q4H PRN Administration moderate to sever e pain Senna/Docusate Sod ium 2 tab 09/09/19 18:00 09/11/19 08:29 Senna-S PO 2 tab BID CECY Administration acetaminophen [From Vicodin] Allergy (Verified 08/31/19 08:14) swelling hydrocodone [From Vicodin] Allergy (Verified 08/31/19 08:14) swelling ibuprofen Allergy (Verified 08/31/19 08:14) swelling Vitals/I&O/Wt Last Vital Signs Temp 98.1 F 09/11/19 07:14 Pulse 110 H 09/11/19 09:35 Resp 16 09/11/19 09:35 BP 135/86 09/11/19 07:14 Pulse Ox 97 09/11/19 09:35 09/10/19 09/11/19 09/11/19 22:59 06:59 14:59 Intake Total 720 / 1718.5 1880 / 3598.5 480 / 480 Output Total 500 / 1080 1200 / 2280 750 / 750 Balance 220 / 638.5 680 / 1318.5 -270 / -270 Physical Exam Const: COMMON NORMALS: no acute distress, patient oriented x3 and alert GENERAL APPEARANCE: cooperative, comfortable, frail appearing and appears older than stated age NUTRITIONAL APPEARANCE: thin ORIENTATION/CONSCIOUSNESS: Yes awake HENMT: COMMON NORMALS: normocephalic, atraumatic, hearing grossly normal bilaterally and moist oral mucous membranes HEAD & SCALP: normocephalic and atraumatic Eye: COMMON NORMALS: Equal, round and reactive pupils present, EOMs intact bilaterally and conjunctivae normal CONJUNCTIVA: Yes conjunctivae normal PUPIL: Yes Equal, round and reactive pupils present Neck/C-Spine: COMMON NORMALS: full ROM GENERAL: Yes normal visual inspecti on and Yes trachea midline Resp: COMMON NORMALS: normal respiratory effort, No retractions, No use of accessory muscles and clear to auscultation bilaterally EFFORT & INSPECTION: Yes able to speak in complete sentences, Yes symmetric chest movement and No tachypneic AUSCULTATION: clear to auscultation bilaterally Cardio: COMMON NORMALS: S1 normal heart sound present, S2 normal heart sound present and No murmurs present (Cardio) RATE: tachycardic RHYTHM: abnormal rhythm irregularly irregular HEART SOUNDS: S1 normal heart sound present and S2 normal heart sound present GI: COMMON NORMALS: Normal to inspection, nondistended, normoactive bowel sounds present, Soft to palpation and non-tender PALPATION: Yes Soft to palpation : BLADDER/KIDNEY EXAM: Yes catheter in place Catheter type (Female): urethral Extremity: COMMON NORMALS: normal to inspection, no clubbing, cyanosis or edema and no pedal edema NARRATIVE EXTREMITY EXAM: -adductor pillow in place, clean/dry/intact dressing over L lateral hip Neuro: COMMON NORMALS: patient oriented x3, moves all extremities, no focal motor deficits, no sensory deficits noted and gait normal SENSORIUM/ORIENTATION: Yes alert Psych: COMMON NORMALS: mental status grossly normal, Normal thought process present, cooperative, normal affect and speech normal SPEECH: Yes normal speech THOUGHT PROCESS: Normal thought process present Skin: COMMON NORMALS: no jaundice, no petechiae and no mottling NARRATIVE SKIN EXAM: -superficial excoriation and small well-circumscribed stage 2 ulcer just above gluteal cleft; no apparent drainage Urinary Catheter Management^: Bynum: Cath Placed During This Visit: yes Reason for Continuing Indwelling Catheter: Assist healing open wound Urinary Catheter Date of Insertion: 09/07/19 Urinary Catheter Time of Insertion: 11:32 Data : 09/11/19 04:02 09/11/19 06:09 Micro: Microbiology 09/09/19 09:18 Gram Stain - Final Hip - #1 Anaerobic Culture - Preliminary Wound Culture - Preliminary A&P Assessment and plan (1) Atrial fibrillation: -new onset atrial fibrillation with RVR -BP has not been able to tolerate consistent beta-lisa use -Has received 2 doses of IV digoxin 0.25 mg; repeat digoxin level wnl -telemetry monitoring -Echo: EF=55%, mild diffuse hypokinesia -not a good candidate for director long term care anticoagulation due to continued high fall risk, on ASA Status: Acute Qualifiers: Atrial fibrillation type: unspecified Qualified Code(s): I48.91 - Unspecified atrial fibrillation (2) Dislocation of hip, left, closed: -s/p open reduction by Dr. Ojeda (POD # 2) -Strict fall precautions -Working with physical therapy -wound cx prelim negative, gram stain negative -can mobilize from bed to chair per Ortho Status: Acute Qualifiers: Encounter type: initial encounter Qualified Code(s): S73.005A - Unspecified dislocation of left hip, initial encounter (3) Hyponatremia: -On gentle IVF hydration -Previously noted to be hyponatremic -Improving with hydration, encourage oral hydration Status: Acute (4) COPD (chronic obstructive pulmonary disease): -No acute exacerbation currently -Has a baseline oxygen requirement of 2 L nasal cannula, currently on room air Status: Chronic Qualifiers: COPD type: unspecified COPD Qualified Code(s): J44.9 - Chronic obstructive pulmonary disease, unspecified (5) UTI (urinary tract infection): -UA indicative of infection -urine cx: E.coli, galeano-sensitive -on Ceftriaxone (day 3); switch to cefuroxime -has Bynum catheter in place -blood cx negative Status: Acute Qualifiers: Hematuria presence: with hematuria Urinary tract infection type: acute cystitis Qualified Code(s): N30.01 - Acute cystitis with hematuria (6) Depression: -On Celexa, hold this due to hyponatremia Status: Chronic Qualifiers: Active/Remission status: remission status unspecified Depression Type: major depressive disorder Major depression recurrence: unspecified whether recurrent Qualified Code(s): F32.9 - Major depressive disorder, single episode, unspecified (7) Protein calorie malnutrition: -BMI-16 kg/m2 -poor appetite; Ensure supplementation with meals Status: Chronic Qualifiers: Protein-calorie malnutrition severity: moderate Qualified Code(s): E44.0 - Moderate protein-calorie malnutrition (8) Anxiety: -anxiolytics PRN Status: Chronic (9) Anemia: -chronic normocytic anemia -baseline Hg is around 10 -continue to monitor Hg Status: Chronic Qualifiers: Anemia type: unspecified type Qualified Code(s): D64.9 - Anemia, unspecified Additional A&P Information -GI ppx with PPI -DVT ppx with SCDs, Lovenox -bowel regimen -regular diet as tolerated -Dispo: SNF; agreeable to [facility] -Code status: FULL code; discussed with patient and at bedside Attestations Medical Necessity Statement*: Patient requires hospitalization for continued post-op care including continued therapy, pending appropriate disposition. Time Spent in Patient Care: 16 - 35 minutes (>than 50% of time spent in counselling and/or direct pt care on unit) . Coding Level of Care Code Acute Welfare Eligibility Worker for g Fwd Exam Comprehensive Diagnoses Atrial fibrillation I48.91 Atrial fibrillation type: unspecified Dislocation of hip, left, closed S73.005A Encounter type: initial encounter Hyponatremia E87.1 COPD (chronic obstructive pulmonary disease) J44.9 COPD type: unspecified COPD UTI (urinary tract infection) N30.01 Hematuria presence: with hematuria Urinary tract infection type: acute cystitis Depression F32.9 Active/Remission status: remission status unspecified Depression Type: major depressive disorder Major depression recurrence: unspecified whether recurrent Protein calorie malnutrition E44.0 Protein-calorie malnutrition severity: moderate Anxiety F41.9 Anemia D64.9 Anemia type: unspecified type
--- NOTE | 2019-09-11 13:00 | PC.NURSE ---
Assisted to Chair assisted pt to sit in reclining chair for lunch. Tolerated activity well. verbal cues on precautions. Used walker for weight bearing on her right leg.
--- NOTE | 2019-09-11 14:00 | PC.NURSE ---
Assisted to C 2 assistance to transfer from bedside commode. Pt use her walker. Tolerated transfer fairly well. Had 1 mod formed BM. Bhakti-care provided. Applied aloe vesta cream and pull up brief.
[2019-09-11] MEDS: metoprolol tartrate 50 mg Tablet PO (17:27)
[2019-09-11] MEDS: calcium carbonate 500 mg Chew Tablet 1000 MG PO (17:27)
--- NOTE | 2019-09-11 17:27 | PC.NURSE ---
at bedside We discuss the SNF placement for continuos rehab per Hospitalist and Surgeon's suggestion at patients's bedside, Pt and agreed and has been in [place] for paperworks.
[2019-09-11] MEDS: enoxaparin 40 mg/0.4 mL Syringe SUBCUT (20:18)
[2019-09-12] VITALS (9 sets, daily range): BP systolic 113–144; BP diastolic 74–89; PULSE 87–107; RESP 16–29; TEMP 36.6–36.7; O2SAT 93–96
--- NOTE | 2019-09-12 03:39 | PC.NURSE ---
Patient truong catheter leaking. Urine noted in tube and urine drainage bag. Bhakti care done and advanced the Truong some and checked to see if any saline leaked out of the balloon will continue to monitor.
[2019-09-12] MEDS: oxyCODONE-APAP 5-325 mg Tablet 1 TAB PO ×3 (04:28→14:40)
[2019-09-12 04:39] LABS: Basophils % 0.2 %; Eosinophils % 0.4 %; Hematocrit 30.5 % (37.0-47.0); Hemoglobin 9.9 g/dL (11.5-15.3); Lymphocytes # 0.8 10^3/uL (0.8-4.8); Lymphocytes % 10.3 %; Mean Corpuscular HGB Conc 32.5 g/dL (30.0-36.0); Mean Corpuscular Hemoglobin 29.1 pg (28.0-34.0); Mean Corpuscular Volume 89.7 fL (81-99); Mean Platelet Volume 8.6 fL (7.4-10.4); Monocytes # 1.2 10^3/uL (0.2-0.9); Monocytes % 14.3 %; Neutrophils % 73.2 %; Nucleated Red Blood Cells % 0 %; Platelet Count 399 10^3/cmm (130-400); Red Cell Distribution Width 14.3 % (12.1-15.1); White Blood Count 8.2 10^3/uL (4.0-10.0)
[2019-09-12 07:34] LABS: Sodium 132 mmol/L (136-145)
[2019-09-12] MEDS: metoprolol tartrate 50 mg Tablet PO (08:01)
[2019-09-12] MEDS: sennosides-docusate Tablet 2 TAB PO (08:02)
[2019-09-12] MEDS: cefUROXime 250 mg Tablet 500 MG PO (08:02)
[2019-09-12] MEDS: docusate sodium 100 mg Capsule PO (08:03)
[2019-09-12] MEDS: multivitamin therapeutic Tablet 1 TAB PO (08:03)
[2019-09-12] MEDS: aspirin 81 mg EC Tablet PO (08:03)
[2019-09-12] MEDS: calcium carbonate 500 mg Chew Tablet 1000 MG PO (08:04)
[2019-09-12] MEDS: lidocaine 5% Patch 1 PATCH TOPICAL (08:06)
[2019-09-12] MEDS: chlorhexidine gluconate 0.12% Btl 473 mL 30 ML MUCOUS MEM ×2 (08:07→12:04)
--- NOTE | 2019-09-12 09:34 | PC.SOCIAL ---
IMM Update Pg. 2 of IMM Updated with patient who verbalized understanding. Copy provided.
--- NOTE | 2019-09-12 11:30 | PC.NURSE ---
Patient worked with PT, assisted into chair abduction pillow in place. Patient tolerated well. Patient denies pain at this time. Nurse to continue to monitor.
--- NOTE | 2019-09-12 12:28 | PC.NURSE ---
Physician at bedside. Plan to dc to SNF. Catheter leaking. Dr. Vargas gave verbal order to place new catheter if issue doesn't resolve.
--- NOTE | 2019-09-12 12:40 | P.DS_ITS ---
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 Ojeda (POD # 3) -Strict fall precautions -Working with physical therapy -wound cx prelim negative, gram stain negative -can mobilize from bed to chair per Ortho, otherwise should be non-weight- bearing and keep abductor pillow in place at all times Qualifiers: Encounter type: initial encounter Qualified Code(s): S73.005A - Unspecified dislocation of left hip, initial encounter (3) Hyponatremia: Status: Acute Problem details: -Previously noted to be hyponatremic -Improved with hydration, encourage oral hydration (4) COPD (chronic obstructive pulmonary disease): Status: Chronic Problem details: -No acute exacerbation currently -Has a baseline oxygen requirement of 2 L nasal cannula, currently on room air Qualifiers: COPD type: unspecified COPD Qualified Code(s): J44.9 - Chronic obstructive pulmonary disease, unspecified (5) UTI (urinary tract infection): Status: Acute Problem details: -UA indicative of infection -urine cx: E.coli, galeano-sensitive -off Ceftriaxone (day 3); switched to cefuroxime -has Bynum catheter in place -blood cx negative Qualifiers: Urinary tract infection type: acute cystitis Hematuria presence: with hematuria Qualified Code(s): N30.01 - Acute cystitis with hematuria (6) Depression: Status: Chronic Problem details: -resume Celexa Qualifiers: Depression Type: major depressive disorder Major depression recurrence: unspecified whether recurrent Active/Remission status: remission status unspecified Qualified Code(s): F32.9 - Major depressive disorder, single episode, unspecified (7) Protein calorie malnutrition: Status: Chronic Problem details: -BMI-16 kg/m2 -poor appetite though has improved during hospital stay; Ensure supplementation with meals Qualifiers: Protein-calorie malnutrition severity: moderate Qualified Code(s): E44.0 - Moderate protein-calorie malnutrition (8) Anxiety: Status: Chronic Problem details: -anxiolytics PRN (9) Anemia: Status: Chronic Problem details: -chronic normocytic anemia -baseline Hg is around 10 -continue to monitor Hg Qualifiers: Anemia type: unspecified type Qualified Code(s): D64.9 - Anemia, unspecified Reason for Visit Reason for Visit: HIP PAIN Hospital Course Hospital Course: Patient was found to have left hip dislocation and following consultation by orthopedic surgery was taken to the OR for reduction as though this was attempted it was unsuccessful in the emergency room. Patient had previously had a left hip fracture with total hip arthroplasty done in July and has been recovering from that previous surgery at home. She had reportedly been non-ambulatory and felt her hip pop when she sat up. She was also found to have hyponatremia which has improved with IV fluid hydration. Part of this is secondary to poor oral intake though appetite has improved throughout her hospital stay. Urinalysis was indicative of infection so she was started on empiric IV antibiotics. She was admitted to the cardiac stepdown unit due to finding of atrial flutter/fibrillation with RVR requiring Cardizem. This was subsequently titrated off and metoprolol dose increased with noted rate control and sinus rhythm. Arrhythmia appears to be in new onset. She did receive some doses of digoxin though levels were elevated so no further doses given. Repeat level has normalized. Urine culture has grown E. coli, pansensitive and she has been switched from ceftriaxone to cefuroxime to complete her treatment course. During admission she had a Bynum catheter placed that will remain in place on discharge due to patient's limited mobility and noted sacral decubitus ulcers which she had present on admission. She is oxygen dependent at baseline with a 2 L requirement, and this should be continued on discharge with appropriate titration to maintain her saturation at or above 92% or for patient comfort. She has been hemodynamically stable, afebrile. She has been [id number] on the left following her reduction, with maintenance of abductor pillow in place at all times for at least 6 weeks unless otherwise indicated. She has been covered with Lovenox for DVT prophylaxis which will be continued on discharge. Due to her poor oral intake would continue to supplement her meals with Ensure. Hemoglobin has been closely monitored and has remained stable with no requirement for transfusion of any blood products. She will be discharged to [facility] to continue her rehabilitation with appropriate follow-up both with her primary care provider and with orthopedics arranged. Discharge Summary: -Patient to follow-up with her primary care provider within 1 week or per SNF -Patient to follow-up with orthopedics Physical Exam Const: COMMON NORMALS: no acute distress, patient oriented x3 and alert GENERAL APPEARANCE: cooperative, comfortable, frail appearing and appears older than stated age NUTRITIONAL APPEARANCE: thin ORIENTATION/CONSCIOUSNESS: Yes awake HENMT: COMMON NORMALS: normocephalic, atraumatic, hearing grossly normal bilaterally and moist oral mucous membranes HEAD & SCALP: normocephalic and atraumatic Eye: COMMON NORMALS: Equal, round and reactive pupils present, EOMs intact bilaterally and conjunctivae normal CONJUNCTIVA: Yes conjunctivae normal PUPIL: Yes Equal, round and reactive pupils present Neck/C-Spine: COMMON NORMALS: full ROM GENERAL: Yes normal visual inspection and Yes trachea midline Resp: COMMON NORMALS: normal respiratory effort, No retractions, No use of accessory muscles and clear to auscultation bilaterally EFFORT & INSPECTION: Yes able to speak in complete sentences, Yes symmetric chest movement and No tachypneic AUSCULTATION: clear to auscultation bilaterally Cardio: COMMON NORMALS: regular rate, regular rhythm, S1 normal heart sound present, S2 normal heart sound present and No murmurs present (Cardio) RATE: regular rate RHYTHM: regular rhythm HEART SOUNDS: S1 normal heart sound present and S2 normal heart sound present GI: COMMON NORMALS: Normal to inspection, nondistended, normoactive bowel sounds present, Soft to palpation and non-tender PALPATION: Yes Soft to palpation : BLADDER/KIDNEY EXAM: Yes catheter in place Catheter type (Female): urethral Extremity: COMMON NORMALS: normal to inspection, no clubbing, cyanosis or edema and no pedal edema NARRATIVE EXTREMITY EXAM: -adductor pillow in place, clean/dry/intact dressing over L lateral hip Neuro: COMMON NORMALS: patient oriented x3, moves all extremities, no focal motor deficits, no sensory deficits noted and gait normal SENSORIUM/ORIENTATION: Yes alert Psych: COMMON NORMALS: mental status grossly normal, Normal thought process present, cooperative, normal affect and speech normal SPEECH: Yes normal speech THOUGHT PROCESS: Normal thought process present Skin: COMMON NORMALS: no jaundice, no petechiae and no mottling NARRATIVE SKIN EXAM: -superficial excoriation and small well-circumscribed stage 2 ulcer just above gluteal cleft; no apparent drainage Urinary Catheter Management^: Bynum: Cath Placed During This Visit: yes Reason for Continuing Indwelling Catheter: Assist healing open wound Urinary Catheter Date of Insertion: 09/07/19 Urinary Catheter Time of Insertion: 11:32 Discharge Data Data Completed and Pending: Completed Studies During Hospitalization Category Date Time Status XR hip LT 1V wo/w pel [id number] Routine Exams 09/09/19 Completed XR hip LT 1V wo/w pel [id number] Routine Exams 09/09/19 10:15 Completed XR hip LT 2-3V wo /w pel* [id number] Stat Exams 09/07/19 06:55 Completed CV echo complete* [id number] Routine Ultrasound 09/07/19 15:23 Completed Pending at discharge Category Date Time Status Anaerobic Culture Routine Lab 09/09/19 09:18 Results Wound Culture and Gram Stain Routin e Lab 09/09/19 09:18 Results Labs from last 24 hours 09/12/19 09/12/19 07:01 04:09 WBC 8.2 RBC 3.40 L Hgb 9.9 L Hct 30.5 L MCV 89.7 MCH 29.1 MCHC 32.5 RDW 14.3 Plt Count 399 MPV 8.6 Neut % (Auto) 73.2 Lymph % (Auto) 10.3 Ford % (Auto) 14.3 Eos % (Auto) 0.4 Baso % (Auto) 0.2 Neut # (Auto) 6.00 Lymph # (Auto) 0.8 Ford # (Auto) 1.2 H Eos # (Auto) 0.0 Baso # (Auto) 0.0 Nucleated RBC % (a uto) 0 Nucleated RBCs # 0.0 Sodium 132 L Vitals: Last Vital Signs Temp 98.1 F 09/12/19 07:07 Pulse 88 09/12/19 07:51 Resp 28 H 09/12/19 10:08 BP 113/74 09/12/19 07:07 Pulse Ox 95 09/12/19 07:51 Discharge Plan Discharge Patient Disposition: Xfer SNF Condition: Stable Prescriptions: New cefuroxime axetil 250 mg Tablet 500 mg PO BID 5 Days Qty: 20 RF: 0 sennosides-docusate sodium 8.6-50 mg Tablet 2 tab PO BID Qty: 60 RF: 0 metoprolol tartrate 50 mg Tablet 50 mg PO BID Qty: 60 RF: 0 docusate sodium 100 mg Capsule 100 mg PO BID Qty: 60 RF: 0 enoxaparin 40 mg/0.4 mL syringe 40 mg SUBCUT Q24H 14 Days Qty: 5.6 RF: 0 calcium carbonate 200 mg calcium (500 mg) Tablet,Chewable 1,000 mg PO BID Qty: 60 RF: 0 cyclobenzaprine 5 mg tablet 5 mg PO TID PRN (Reason: muscle spasm) Qty: 30 RF: 0 Continued Multiple Vitamins Tablet 1 tab PO DAILY Qty: 30 RF: 0 Aspir-81 81 mg Tablet,Delayed Release (Dr/Ec) 81 mg PO DAILY Qty: 30 RF: 0 oxycodone-acetaminophen 5-325 mg Tablet 1 tab PO Q4H PRN (Reason: moderate to severe pain) Qty: 30 RF: 0 citalopram 20 mg Tablet 20 mg PO DAILY Qty: 30 RF: 0 lorazepam 0.5 mg tablet 0.5 mg PO BID PRN (Reason: anxiety) Qty: 30 RF: 0 Vitamin D3 1 cap PO DAILY Qty: 30 RF: 0 Discontinued metoprolol tartrate 25 mg tablet 12.5 mg PO BID 30 Days Qty: 30 RF: 5 Discharge Orders: Discharge Order (Routine); Ordered 09/12/19 Ordered By: Sirisha Vargas Referrals: [facility] [Outside] [facility] [Outside] Florentin Amaro MD [Primary Care Provider] - 4-7 days (Post hospital discharge follow up) Mariya Ventura MD [Physician] - 1 week (Post-op follow up.) Discharge Diet: Cardiac Discharge Activity: As per PT/OT instructions Activity Restrictions/Additional Instructions: -Patient should continue to use adductor pillow per orthopedic surgeon instructions for 6 weeks unless otherwise indicated -Patient should maintain ino-[id number]-[id number] status on the LLE due to recent hip dislocation -Bynum catheter should remain in place due to limited mobility and sacral decubitus ulcers -Patient will continue to receive prophylactic dose of Lovenox as prescribed -Patient has a baseline oxygen requirement of 2 L nasal cannula, this can be titrated as needed to maintain a saturation at or above 92% or for patient comfort -Please add Ensure supplementation to each meal as patient has a poor appetite at baseline Discharge Attestations Time Spent in Discharge Care*: greater than 30 min Specific Discharge Activities: Specific discharge activities: discussing with pcp/other providers, discussing with special education case manager/social workers/dc planners, documenting/other paperwork and evaluating patient/reviewing data Status at Discharge: Cognitive status at discharge: cognitively intact , Behavioral status at discharge: cooperative and dependent in ADL's , Functional status at discharge: uses cane/walker (non-weight bearing on LLE) Quality Metrics Clinical Quality Measures During this hospital stay, did patient experience: None Coding Level of Care Code 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 Diagnoses Atrial fibrillation I48.91 Atrial fibrillation type: unspecified Dislocation of hip, left, closed S73.005A Encounter type: initial encounter Hyponatremia E87.1 COPD (chronic obstructive pulmonary disease) J44.9 COPD type: unspecified COPD UTI (urinary tract infection) N30.01 Urinary tract infection type: acute cystitis Hematuria presence: with hematuria Depression F32.9 Depression Type: major depressive disorder Major depression recurrence: unspecified whether recurrent Active/Remission status: remission status unspecified Protein calorie malnutrition E44.0 Protein-calorie malnutrition severity: moderate Anxiety F41.9 Anemia D64.9 Anemia type: unspecified type
--- NOTE | 2019-09-12 14:30 | PC.NURSE ---
Report called to ESTHER Ivy at [facility]. Nurse did not have any further questions. has been notified of dc.
== END 2019-09-12 15:15 | disposition skilled nursing facility (03) | DRG 467 ==
LOC: ER 09:22 → OR 09:39 → MEDSURG 12:35 → ER 13:34 → MEDSURG 13:37 → OPS 13:37 → CSU 16:58
PROVIDERS: Family Medicine; Internal Medicine; Orthopaedic Surgery; Admitting Provider Family Medicine; PCP Family Medicine; Visit Provider Family Medicine
PROC: 0SWE0JZ Revision of Synthetic Substitute in Left Hip Joint, Acetabular Surface, Open Approach (ICD-10-PCS; 2019-09-09 08:00)
DX: T84.021A Dislocation of internal left hip prosthesis, initial encounter (principal); E87.1 Hypo-osmolality and hyponatremia; Z68.1 Body mass index [BMI] 19.9 or less, adult; N30.01 Acute cystitis with hematuria; L76.32 Postprocedural hematoma of skin and subcutaneous tissue following other procedure; E44.0 Moderate protein-calorie malnutrition; Y79.2 Prosthetic and other implants, materials and accessory orthopedic devices associated with adverse incidents; F41.9 Anxiety disorder, unspecified; J43.9 Emphysema, unspecified; F32.9 Major depressive disorder, single episode, unspecified; Z96.642 Presence of left artificial hip joint; Z87.891 Personal history of nicotine dependence; Z99.81 Dependence on supplemental oxygen; I48.91 Unspecified atrial fibrillation; D64.9 Anemia, unspecified; B96.20 Unspecified Escherichia coli [E. coli] as the cause of diseases classified elsewhere; Z79.891 Long term (current) use of opiate analgesic; Z79.82 Long term (current) use of aspirin
CPT/HCPCS: 12345; 36415; 51702; 73501; 73502; 76000; 80048; 80053; 80162; 81001; 81003; 83735; 84100; 84295; 84300; 84443; 84484; 85014; 85018; 85025; 86850; 86900; 86920; 87040; 87070; 87075; 87077; 87086; 87186; 87205; 93005; 93306; 96372; 96375; 97110; 97161; 97166; 97530; 97535; 99283; J0330; J0696; J1160; J1580; J1650; J1720; J2175; J2370; J2405; J2704; J2710; J3010; J3475; J3490; J7030; J7040; J7050; P9016

== ENCOUNTER 2019-09-19 08:03 | Outpatient (CLI) | payer MEDICARE, SELFPAY ==
--- NOTE | 2019-09-19 08:07 | XR_ITS ---
WS: [id number] Left hip, 3 views, 09/19/2019 Clinical Data: PTOP Comparison: Left hip, 09/09/2019 Findings: The left hip arthroplasty is in good position. There are still surgical chastity adjacent to the later al aspect of the left hip. There is a large amount of fecal material in the rectum. Vascular calcifications are seen. XR/XR hip LT 2-3V wo/w pel* [id number] Impression: Satisfactory position left hip arthroplasty.
== END 2019-09-19 08:04 | disposition home or self-care (01) ==
LOC: RAD 08:05
PROVIDERS: PCP Family Medicine; Visit Provider Specialist
DX: Z96.642 Presence of left artificial hip joint (principal)
CPT/HCPCS: 73502

== ENCOUNTER → 2019-10-18 13:19 | Outpatient (BNVA) | payer MEDICARE, SELFPAY | PROVIDERS: PCP Family Medicine; Visit Provider Family Medicine | DX: D64.9 Anemia, unspecified (principal); S72.012A Unspecified intracapsular fracture of left femur, initial encounter for closed fracture; D50.8 Other iron deficiency anemias; I48.91 Unspecified atrial fibrillation; F41.9 Anxiety disorder, unspecified; S73.005A Unspecified dislocation of left hip, initial encounter | CPT/HCPCS: 80048; 85025 ==